=== PATIENT | female | born 1940 | race Caucasian/White ===

== ENCOUNTER 2016-03-04 08:51 | Inpatient (IN) | payer MEDICARE ==
[2016-03-04] VITALS (35 sets, daily range): BP systolic 103–164; BP diastolic 42–93; PULSE 57–85; RESP 13–32; TEMP 99.1; Ht 157.5 cm; Wt 52.3 kg
[~2016-03-04] VITALS: Ht 157.5 cm; Wt 52.3 kg
[~2016-03-04 08:51] MED LIST: ALPR0.5T6 PO; AMLO-145 PO; ASPI81TA3 PO; CARAS PO; FLUTICASONE; LEVO50TA83 PO; MONT10TA24 PO; MULT1TAB59; NEBI5TAB9; PANT40TA3; PREDNISONE 5 MG; RTATR; RTPRO5; SALMETEROL; SMV40T PO; TIOT18CA; [UNRECOGNIZED DRUG - CODE] PO
[2016-03-04] MEDS ORDERED: ACETAMINOPHEN 500 MG TAB PO STA (08:56)
[2016-03-04] MEDS ORDERED: ONDANSETRON 4 MG INJ IV STA (08:56)
[2016-03-04] MEDS ORDERED: CEFEPIME 2GM/50 ML (PMX) 50 ML IVPB STA (08:56)
[2016-03-04] MEDS ORDERED: CA GLUCONATE (GM) 10% 10ML INJ IV STA (08:59)
[2016-03-04] MEDS ORDERED: VANCOMYCIN 1 GM (PMX) 250 ML IVPB ONE (09:00)
[2016-03-04] MEDS ORDERED: IPRATROPIUM (NEB) 0.5 MG/2.5 ML AMP NEB STA (09:06)
[2016-03-04] MEDS ORDERED: ALBUTEROL 0.083% (NEB) 2.5 MG/3 ML AMP NEB STA (09:06)
[2016-03-04] MEDS ORDERED: NITROGLYCERIN 50 MG/D5W (PMX) 250 ML IV STA (09:11)
--- NOTE | 2016-03-04 09:12 | RADRPT ---
PROCEDURE: XR Chest. CLINICAL INDICATION: Cough. Sepsis. TECHNIQUE: Single frontal view. COMPARISON: 08/06/2012. FINDINGS: There is a new tunneled right internal jugular vein dialysis catheter with the tip in the lower supe rior vena cava. There is bilateral air space and interstitial disease consistent with pulmonary tito ma. Superimposed pneumonia cannot be excluded in the mid and lower lung zones. The heart is mildly enlarged. There are sternal wires and mediastinal clips. There is no pleural effusion. There is no pneumothorax. IMPRESSION: 1. Right IJ dialysis catheter in satisfactory position. 2. Pulmonary edema. Superimposed pneumonia cannot be excluded in the mid and lower lung zones. 3. Previous median sternotomy. 4. Cardiomegaly and atherosclerosis. RPTAT: QQ .Daniel Lagunas MD, Date Time Electronically viewed and signed by .Daniel Lagunas MD, MD on 03/04/2016 09:12 .R/
[2016-03-04 09:22] LABS: BASOPHIL # 0.1 10^3/ul (0.0-0.1); BASOPHILS % 0.7 % (0.0-2.0); EOSINOPHILS # 0.3 10^3/ul (0.0-0.5); EOSINOPHILS % 1.7 % (0.0-7.0); HEMOGLOBIN 11.9 g/dl (12.0-16.0); LYMPHOCYTES # 1.4 10^3/ul (0.8-2.9); LYMPHOCYTES % 8.2 % (15.0-51.0); MEAN CORPUSCULAR HGB CONC 33.1 g/dl (32.0-37.0); MEAN CORPUSCULAR VOLUME 102.6 fl (82.0-101.0); MEAN PLATELET VOLUME 8.2 fl (7.4-10.4); MONOCYTE # 0.7 10^3/ul (0.3-0.9); MONOCYTES % 4.3 % (0.0-11.0); NEUTROPHIL # 14.2 10^3/ul (1.6-7.5); NEUTROPHILS % 85.1 % (39.0-77.0); PLATELET COUNT 267 10^3/UL (140-440); RED BLOOD COUNT 3.51 10^6/ul (4.20-5.40); RED CELL DISTRIBUTION WIDTH 15.2 % (11.5-14.5); UNCORRECTED WBC 16.7 10^3/ul (4.8-10.8); WHITE BLOOD COUNT 16.7 10^3/ul (4.8-10.8)
[2016-03-04 09:23] LABS: CONDITION 1; LH ANALYZER COMMENTS 1
[2016-03-04 09:26] LABS: INR 0.97; PROTIME 12.9 Sec (12.2-14.2)
[2016-03-04 09:27] LABS: PARTIAL THROMBOPLASTIN TIME 21.2 Sec (25.0-35.0)
[2016-03-04 09:28] LABS: ALBUMIN 3.5 g/dl (3.3-4.9)
[2016-03-04 09:29] LABS: POTASSIUM 5.3 mmol/L (3.5-5.1)
[2016-03-04 09:31] LABS: ALBUMIN/GLOBULIN RATIO 1.16; BILIRUBIN,INDIRECT 0.1 mg/dl (0-1.1); BILIRUBIN,TOTAL 0.1 mg/dl (0.2-1.3); CREATININE 2.28 mg/dl (0.44-1.00); TOTAL PROTEIN 6.5 g/dl (6.1-8.1)
[2016-03-04 09:32] LABS: CALCIUM 8.7 mg/dl (8.4-10.2)
[2016-03-04 09:56] LABS: TROPONIN-I 2.74 ng/ml (0.00-0.12)
[2016-03-04 10:36] LABS: AADO2 Arterial 175.1 mmHg (7.0-24.0); Allen Test ACCEPTAB; Arterial Base Excess 0.2 mmol/L (-3.0-3); Arterial COHb 0.3 % (0.0-3.0); Arterial Fraction of Oxyhgb 86.8 % (93.0-99.0); Arterial MetHb 0.1 % (0.0-1.5); Arterial Total Hemglobin 11.6 g/dl (12.0-18.0); Blood Gas IEPAP 15/5; Blood Gas PS 10; MODE MASK - BIPAP
[2016-03-04] MEDS ORDERED: HEPARIN 1000 UNITS/ML 10 ML INJ IV STA (10:41)
[2016-03-04] MEDS ORDERED: HEPARIN 25000 UNITS/250 ML 250 ML IV STA (10:41)
[2016-03-04] MEDS ORDERED: ASPIRIN 81 MG TAB PO ONE (11:00)
--- NOTE | 2016-03-04 11:03 | ERA ---
ER Documentation Chief Complaint Date/Time DATE: 03/04/16 TIME: 10:51 Chief Complaint BIBA R89, SUDDEN ONSET SOB PER SON FROM HOME HPI 75-year-old female history of end-stage renal disease on dialysis, last dialysis , history of CABG. The patient presents in respiratory distress. The patient had significant shortness of breath over the past 12-24 hours. She denies chest pain. She states that she feels like she cannot take a deep breath in. She denies any pleuritic pain. She did have recent hospitalization for pneumonia and was noted to have a fever. The patient's blood pressure in the field was near 200 systolic. The patient arrives in respiratory distress and remainder of HPI is limited given critical nature of the patient. ROS All systems reviewed and are negative except as per history of present illness. Medications Home Meds Reported Medications Tiotropium Cheshire* (Spiriva*) 18 Mcg Cap.w.dev 07/26/12 Theophylline Anhydrous* (Kash-24*) 100 Mg Cap.sr.24h, 1 MG PO BID 07/26/12 Sucralfate* (Carafate* (Pediatric)) 100 Mg/Ml Susp, 10 ML PO Q12H 07/26/12 Simvastatin (Simvastatin) 40 Mg Tablet, 1 MG PO HS 07/26/12 [Prednisone 5 Mg Taper Dose] No Conflict Check 07/26/12 Pantoprazole* (Protonix*) 40 Mg Tablet.dr, 1 DAILY 07/26/12 Nebivolol* (Bystolic*) 5 Mg Tab, 1 DAILY 07/26/12 Multivitamins* (Multivitamins*) 1 Tab Tablet, 1 DAILY 07/26/12 Montelukast Sodium* (Montelukast Sodium*) 10 Mg Tablet, 1 MG PO HS 07/26/12 Levothyroxine Sodium* (Synthroid*) 50 Mcg Tablet, 1 MG PO DAILY 07/26/12 Ipratropium Cheshire* (Atrovent*) 2.5 Ml Nebu 07/26/12 [Advair Discus 250 Mcg/50 Mcg] No Conflict Check 07/26/12 Aspirin* (Aspirin* Chew) 81 Mg Tab.chew, 1 MG PO DAILY 07/26/12 Amlodipine Besylate* (Amlodipine Besylate*) 5 Mg Tablet, 0.5 MG PO DAILY 07/26/12 Albuterol Sulfate* (Proventil* Neb) 0.5 Ml Nebu 07/26/12 Alprazolam* (Alprazolam*) 0.5 Mg Tablet, 1 PO PRN 07/26/12 Allergies Allergies: Coded Allergies: iodine (Verified Allergy, 07/31/12) zolpidem tartrate (Verified Allergy, 07/31/12) PMhx/Soc History of Surgery: Yes (CABG, endoscopy) Anesthesia Reaction: No Hx Neurological Disorder: No Hx Respiratory Disorders: Yes (COPD, 02 @ NEEDED) Hx Cardiac Disorders: No (CAD, DM, HTN) Hx Psychiatric Problems: No Hx Miscellaneous Medical Probl: Yes (GI bleed, hypothyroidism, DIALYSIS T/THUR/ SAT) Hx Alcohol Use: No Hx Substance Use: No Hx Tobacco Use: No Smoking Status: Former smoker FmHx Family History: No diabetes Physical Exam Vitals Vital Signs Date Time Temp Pulse Resp B/P Pulse Ox O2 Delivery O2 Flow Rate FiO2 03/04/16 10:40 75 97 50 03/04/16 10:16 84 24 136/45 98 BIPAP 03/04/16 10:11 86 22 134/47 100 BIPAP 03/04/16 09:39 90 21 158/56 100 BIPAP 03/04/16 09:31 102.7 92 24 171/62 100 BIPAP 03/04/16 09:05 106 99 40 03/04/16 09:02 102.7 107 33 161/109 88 Physical Exam General: Respiratory distress speaking in short sentences Head: Normocephalic, atraumatic. Eyes: Pupils equally reactive, EOM intact ENT: Moist mucous membranes Neck: Supple, no lymphadenopathy, JVD Respiratory: Rhonchi at the bases bilaterally Cardiovascular: Tachycardia, no murmurs, rubs, or gallops Abdominal: Soft, non-tender, non-distended, no peritoneal signs : Deferred MSK: Pitting edema, no unilateral swelling, 5/5 strength Neurologic: Alert and oriented, moving all extremities, normal speech, no focal weakness, no cerebellar signs Skin: No rash Psych: Normal mood Result Diagram: 03/04/16 0900 03/04/16 0900 Results 24 hrs Laboratory Tests Test 03/04/16 08:56 03/04/16 09:00 Arterial Blood HCO3 26.0mmol/L Arterial Blood Base Excess 0.2mmol/L Arterial Blood Oxygen Saturation 87.1mmHG Adrien Test ACCEPTAB Arterial Blood Gas Puncture Site Right Radial Arterial Blood Carboxyhemoglobin 0.3% Arterial Blood Date Drawn 03/04/2016 10:25:48 AM Arterial Blood Methemoglobin 0.1% Arterial Blood pCO2 (Temp correct) 46.9mmhg Arterial Blood pH (Temp corrected) 7.362 Arterial Blood pO2 (Temp corrected) 56.2mmHG Blood Gas A-a O2 Differential 175.1mmHg Blood Gas Actual Respiration Rate 30 Blood Gas IPAP/EPAP Ratio 15/5 Blood Gas Modality MASK - BIPAP Blood Gas Notified Time 03/04/2016 10:36:06 AM Blood Gas Notified Whom AT Blood Gas Pressure Support 10 Blood Gas Specimen Source Blood arterial Blood Gas Temperature 37.0C FiO2 40.0% Oxyhemoglobin Percent 86.8% Total Hemoglobin 11.6g/dl Activated Partial Thromboplast Time 21.2Sec Alanine Aminotransferase (ALT/SGPT) 64IU/L Albumin 3.5g/dl Albumin/Globulin Ratio 1.16 Alkaline Phosphatase 104IU/L Anion Gap 14 Aspartate Amino Transf (AST/SGOT) 60IU/L Basophils # 0.110^3/ul Basophils % 0.7% Blood Morphology Comment Blood Urea Nitrogen 65mg/dl Calcium Level 8.7mg/dl Carbon Dioxide Level 29mmol/L Chloride Level 102mmol/L Creatinine 2.28mg/dl Direct Bilirubin 0.00mg/dl Eosinophils # 0.310^3/ul Eosinophils % 1.7% Globulin 3.00g/dl Glucose Level 101mg/dl Hematocrit 36.0% Hemoglobin 11.9g/dl INR International Normalized Ratio 0.97 Indirect Bilirubin 0.1mg/dl Lactic Acid Level 1.7mmol/L Lymphocytes # 1.410^3/ul Lymphocytes % 8.2% Mean Corpuscular Hemoglobin 34.0pg Mean Corpuscular Hemoglobin Concent 33.1g/dl Mean Corpuscular Volume 102.6fl Mean Platelet Volume 8.2fl Monocytes # 0.710^3/ul Monocytes % 4.3% Neutrophils # 14.210^3/ul Neutrophils % 85.1% Nucleated Red Blood Cells # 0.010^3/ul Nucleated Red Blood Cells % 0.0/100WBC Platelet Count 39465^3/UL Potassium Level 5.3mmol/L Prothrombin Time 12.9Sec Prothrombin Time Ratio 1.0 Red Blood Count 3.5110^6/ul Red Cell Distribution Width 15.2% Sodium Level 140mmol/L Total Bilirubin 0.1mg/dl Total Protein 6.5g/dl Troponin I 2.740ng/ml White Blood Count 16.710^3/ul Current Medications Medications (Trade) Dose Ordered Sig/Arnold Route PRN Reason Start Time Stop Time Status Last Admin Dose Admin Cefepime HCl 50 ml @ 100 mls/hr ONCE STAT IVPB 03/04/16 08:56 03/04/16 09:25 DC 03/04/16 09:13 Vancomycin HCl (Vancocin) 250 ml @ 125 mls/hr ONCE ONCE IVPB 03/04/16 09:00 03/04/16 10:59 03/04/16 10:36 Acetaminophen (Tylenol Tab) 1,000 mg ONCE STAT PO 03/04/16 08:56 03/04/16 09:00 DC 03/04/16 09:33 Ondansetron HCl (Zofran Inj) 4 mg ONCE STAT IV 03/04/16 08:56 03/04/16 09:00 DC 03/04/16 09:13 Calcium Gluconate (Ca Gluc) 1 gm ONCE STAT IV 03/04/16 08:59 03/04/16 09:00 DC 03/04/16 09:12 Albuterol (Proventil 0.083% (Neb)) 2.5 mg ONCE STAT NEB 03/04/16 09:06 03/04/16 09:08 DC 03/04/16 09:47 Ipratropium Cheshire 0.5 mg 0.5 mg ONCE STAT NEB 03/04/16 09:06 03/04/16 09:08 DC 03/04/16 09:47 Nitroglycerin/ Dextrose (Nitroglycerin 50 Mg/D5W (Pmx)) 250 ml @ 6 mls/hr ONCE STAT IV 03/04/16 09:11 03/06/16 02:50 03/04/16 09:39 Heparin Sodium (Porcine) 3180 unit 3,180 unit ONCE STAT IV 03/04/16 10:41 03/04/16 10:45 DC Heparin Sodium (Porcine) (Heparin 48985 Units/250 ml) 250 ml @ 0 mls/hr ONCE STAT IV 03/04/16 10:41 03/04/16 10:45 DC Procedures/MDM EKG, MONITORS, & DIAGNOSTIC IMAGING: EKG #1: EKG: I reviewed and interpreted a 12-lead EKG. Rhythm: Sinus tachycardia Ectopy: None Intervals: Left bundle branch block ST segments: No elevations or depressions T waves: Peaked T waves EKG #2: EKG: I reviewed and interpreted a 12-lead EKG. Rhythm: Normal sinus rhythm Ectopy: None Intervals: Left bundle branch block ST segments: ST depression in lateral lead V6 T waves: Improved T waves Chest x-ray: I reviewed and interpreted a 1 view of the chest Mediastinum: No enlargement Cardiac silhouette: cardiomegaly Airspace: Pulmonary edema, cannot rule out left lower lobe infiltrate Bones: No evidence of fracture LAB INTERPRETATION: Troponin elevation, leukocytosis, normal lactic acid, slight hyperkalemia MEDICAL DECISION MAKING: The patient arrives in respiratory distress requiring prompt medical intervention and positive pressure ventilation. The patient has multiple issues at this time. She has a fever with recent pneumonia, she has significant hypertension, dialysis 2 days ago with likely pulmonary edema. The patient's complex presentation is likely concomitant healthcare associated pneumonia with hypertensive emergency in the setting of acute pulmonary edema requiring BiPAP and nitroglycerin drip. The patient is also found to have a troponin elevation. None of her EKGs mean ST elevation myocardial infarction criteria however the patient's EKGs are concerning for possible concurrent ischemia. EKGs do improved with blood pressure and respiratory rate control. She has been noted to have a left bundle branch block in the past. She has not reported any chest pain. However, the patient's troponin is significantly elevated. ER COURSE: The patient does meet SIRS criteria with source consistent with sepsis. While the patient's creatinine is elevated this is consistent with chronic renal failure and not consistent with significant endorgan dysfunction. Therefore, I do not believe that the patient meets criteria for severe sepsis or septic shock. The patient was given antipyretic. Blood cultures were taken prior to antibiotics and the patient was given vancomycin and cefepime. I would like to avoid fluid resuscitation in this patient given extreme concern for volume overload. The patient is clinical evidence of significant volume overload requiring BiPAP and likely emergent dialysis. Providing patient with aggressive fluid resuscitation will certainly place this patient into respiratory failure requiring intubation and unmanageable volume overload. The patient also has evidence of significant hypertension, acute pulmonary edema. The patient was emergently placed on BiPAP with improved symptoms. She was given a breathing treatment given history of COPD but no evidence of significant wheezing. A nitroglycerin drip was initiated with improved blood pressure control and symptom control. The patient's troponin is elevated consistent with non-ST elevation myocardial infarction. Her EKGs do not meet STEMI criteria. However, I discussed the case with Dr. Woods, interventional cardiology. He is concerned about the patient's significant troponin elevation and would like the patient started on heparin, aspirin and he will likely take the patient for angiography later today. Additionally, the patient did have an EKG concerning for hyperkalemia and was empirically given calcium. Her EKG is improved and her potassium is only slightly elevated upon laboratory analysis. The patient however will require emergent dialysis. Dr. Hameed was notified and will arrange for emergent dialysis. The patient's primary care physician Dr. Philip was notified he would like the patient admitted to Dr. Hameed or the hospitalist group. Dr. Hameed would like the patient admitted to the hospitalist group. The patient's blood pressure remained stable. She does not require central line or pressors. Vital sign improvement with interventions as documented above. I kept the patient and/or family informed of laboratory and diagnostic imaging results throughout the emergency room course. DISPOSITION PLAN: ICU CONSULTATION: Accepting care team and consultations: I discussed the current laboratory data, diagnostic imaging and emergency care provided. Admitting team: Dr. Vanegas Admitting team indication: Insurance directed Consulting services: Primary care physician, interventional cardiology and nephrology as documented above Sepsis Documentation: It should be noted while the patient does have Sirs and a source I feel that the patient's endorgan dysfunction criteria is likely secondary to alternative diagnosis namely hypertensive emergency in the setting of end-stage renal disease on dialysis. The patient is hemodynamically stable without significant lactic acid elevation. However, I am required to document patient's reevaluation. The patient did not receive fluids as documented above. SEVERE SEPSIS CRITERIA: Infectious source: Healthcare associated pneumonia End organ damage indicated by: Acute Resp Failure (sat < 92% w/o oxygen) [employer] Appliance [employer]ic > 2.0 SEPSIS MANAGEMENT Time of recognition of severe sepsis/septic shock: Upon arrival 3 HOUR BUNDLE Blood cultures x 2 before broad-spectrum antibiotics: Yes 30 ml/kg NS bolus not given secondary to contraindications as documented above Initial lactate less than 2 Repeat lactate pending SEPTIC SHOCK ASSESSMENT: No lactic acid > 4.0 No persistent hypotension (SBP < 90 or 40 mmHg drop, MAP < 65) despite 30 mL/kg IV fluid bolus VOLUME REASSESSMENT FOR SEPTIC SHOCK: Reevaluation Time: 11 AM Temp 99, BP 136/45, HR 84, RR 24, Pox 98 on BiPAP Heart Regular rate & rhythm Lungs rhonchi at the bases bilaterally Skin Warm & dry Cap Refill Less than 2 seconds Peripheral pulses Radially present PERSISTENT HYPOTENSION TREATMENT: Comfort care No Central line Not Required Vasopressor started Not required I considered further perfusion assessment with CVP measurement, SCVO2, bedside ultrasound volume assessment, passive leg raise, trial of further fluid bolus. And proceeded with 30 ml/kg fluid bolus of NSS, broad spectrum antbiotics, and admission. CRITICAL CARE Critical care time 50 minutes Emergent fluid management while maintaining close respiratory support. Provision of immediate and broad-spectrum antibiotic therapy. Simultaneous assessment for possible sources in order to direct targeted therapy. Consideration for invasive and chemical support to prevent cardiopulmonary collapse. Critical care time is independent of procedures performed. Departure Diagnosis: Primary Impression: Acute respiratory failure Qualified Code: J96.01 - Acute respiratory failure with hypoxia Additional Impressions: Hypertensive emergency Sepsis Qualified Code: A41.9 - Sepsis, due to unspecified organism Healthcare-associated pneumonia Non-ST elevation myocardial infarction (NSTEMI) End stage renal disease on dialysis Hyperkalemia Acute pulmonary edema Leukocytosis Qualified Code: D72.829 - Leukocytosis, unspecified type Condition: Critical KOBY CRUZ MD Mar 04, 2016 11:02
[2016-03-04] MEDS ORDERED: HYDR-3672 PO (11:14)
[2016-03-04] MEDS ORDERED: ISOS20TA19 PO (11:15)
[2016-03-04] MEDS ORDERED: PRED20TA PO (11:16)
[2016-03-04] MEDS ORDERED: FURO20TA3 PO (11:17)
[2016-03-04] MEDS ORDERED: ASPI-664 PO (11:18)
[2016-03-04] MEDS ORDERED: PANT40TA4 PO (11:19)
[2016-03-04] MEDS ORDERED: FLOV220 INHALATION (11:19)
[2016-03-04] MEDS ORDERED: CARV3.1260 PO (11:20)
[2016-03-04] MEDS ORDERED: ATOR40TA68 PO (11:21)
[2016-03-04] MEDS ORDERED: MONT10TA24 PO (11:22)
[2016-03-04] MEDS ORDERED: TIOT4MIS2 INHALATION (11:25)
[2016-03-04 11:27] LABS: ADD UMIC YES; URINE BILIRUBIN (Dip) NEGATIVE (NEGATIVE); URINE BLOOD (Dip) 3+ (NEGATIVE); URINE COLOR YELLOW (YELLOW); URINE GLUCOSE (Dip) NEGATIVE (NEGATIVE); URINE KETONES (Dip) NEGATIVE (NEGATIVE); URINE LEUKOCYTE ESTERASE (Dip) 2+ (NEGATIVE); URINE NITRITE (Dip) NEGATIVE (NEGATIVE); URINE TOTAL PROTEIN (Dip) 2+ (NEGATIVE); URINE UROBILINOGEN (Dip) 0.2 E.U./dL (0.1-1.0)
[2016-03-04] MEDS ORDERED: IPRATROPIUM (NEB) 0.5 MG/2.5 ML AMP NEB PRN (11:30)
[2016-03-04] MEDS ORDERED: ACETAMINOPHEN 650 MG SUPP PR PRN (11:30)
[2016-03-04] MEDS ORDERED: morphine 2 MG INJ IV PRN (11:30)
[2016-03-04] MEDS ORDERED: LORAZEPAM 2 MG INJ IV PRN (11:30)
[2016-03-04] MEDS ORDERED: NITROGLYCERIN (SL) 0.4 MG TAB SL PRN (11:30)
[2016-03-04] MEDS ORDERED: ALBUTEROL 0.5% (NEB) 2.5 MG/0.5 ML AMP NEB PRN (11:30)
[2016-03-04] MEDS ORDERED: ONDANSETRON 4 MG INJ IV PRN (11:30)
[2016-03-04] MEDS ORDERED: HEPARIN 1000 UNITS/ML 10 ML INJ IV PRN (11:30)
[2016-03-04] MEDS ORDERED: LIDOCAINE 1% (MDV) 20 ML INJ ONE (11:37)
[2016-03-04] MEDS ORDERED: VERAPAMIL 5 MG INJ ONE (11:37)
[2016-03-04] MEDS ORDERED: IODIXANOL LOCM 100 ML BTL ONE (11:37)
[2016-03-04] MEDS ORDERED: HEPARIN 1000 UNITS/ML 10 ML INJ ONE (11:37)
[2016-03-04] MEDS ORDERED: NITROGLYCERIN (IC) 100 MCG/ML INJ ONE (11:38)
[2016-03-04 11:39] LABS: BACTERIA,URINE MODERATE; TRANSITIONAL EPI CELLS,URINE FEW
[2016-03-04] MEDS ORDERED: LEVOFLOXACIN 500MG/D5W (PMX) 100 ML IVPB ONE ×2 (12:00→18:00)
[2016-03-04] MEDS ORDERED: DIPHENHYDRAMINE 50 MG INJ ONE (12:11)
[2016-03-04] MEDS ORDERED: METHYLPREDNISOLONE 125 MG INJ ONE (12:11)
[2016-03-04] MEDS ORDERED: HYDROCORTISONE 100 MG INJ ONE (12:11)
[2016-03-04] MEDS ORDERED: FAMOTIDINE 20 MG INJ IV STA (12:16)
[2016-03-04] MEDS ORDERED: FENTAnyl 50 MCG/ML VIAL ONE (12:31)
[2016-03-04] MEDS ORDERED: MIDAZOLAM 1 MG/ML 2 ML INJ ONE (12:31)
[2016-03-04] MEDS ORDERED: CLOPIDOGREL 300 MG TAB ONE (13:27)
--- NOTE | 2016-03-04 14:04 | CONS ---
Date/Time of Note Date/Time of Note DATE: 03/04/16 TIME: 13:57 Assessment/Plan Assessment/Plan Problems: (1) Acute respiratory failure Status: Acute Qualifiers: Qualified Code: J96.01 - Acute respiratory failure with hypoxia (2) Hyperkalemia Status: Acute (3) Leukocytosis Status: Acute Qualifiers: Qualified Code: D72.829 - Leukocytosis, unspecified type (4) Acute pulmonary edema Status: Acute (5) Sepsis Status: Acute Qualifiers: Qualified Code: A41.9 - Sepsis, due to unspecified organism (6) Non-ST elevation myocardial infarction (NSTEMI) Status: Acute (7) Healthcare-associated pneumonia Status: Acute (8) End stage renal disease on dialysis Status: Acute (9) Hypertensive emergency Status: Acute Additional Assessment/Plan Non-ST elevation myocardial infarction ESRD on hemodialysis Severe coronary artery disease status post bypass Severe peripheral vascular disease status post bypass Patient with elevated troponin with EKG changes high risk non-ST elevation myocardial infarction was 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 Patient found to have only GARCIA to LAD open there was no other graft found E1 in the aortogram. Patient had left him and 70-80% significant stenosis confirmed with intravascular ultrasound showed severe calcified stenosis with a left main area of 2.3-2.5 mm in diameter with severely dampening of the pressure while engaging a 6 Bulgarian catheter to the ostial left main. Due to the fact that she had severe ostial left main stenosis confirmed with a high was at high risk non- ST elevation OH with severely reviewed ejection fraction of LV function and LV gram 25% it was a high risk candidate to do left main intervention. We decided to go head due to the segments of the patient as well as pulmonary edema on a BiPAP. Successful complex left main intervention was performed with stent placement of 3.512 mm drug-eluting. Continue heparin drip for next 6 hours and Plavix 600 was given to the patient which will be in the system within 4-6 hours. Patient left groin was closed with Angio-Seal without any complication. I had a long discussion with the patient's family due to the fact that patient' s ejection fraction is severely reduced with critical left main which was intervened patient will be discharged on [facility] home and 90 day follow-up with ejection fraction does not improve patient will require ICD placement Continue current medical management and follow-up the patient in ICU Consultation Date/Type/Reason Admit Date/Time Date of Consultation: Mar 04, 2016 Type of Consultation: Interventional Cardiology Reason for Consultation NSTEMI, High Risk Hx of Present Illness Patient is 75-year-old female with past medical history of coronary artery disease status post bypass surgery, severe peripheral vascular disease status post aortofemoral bypass, ESRD on hemodialysis, hypertension, dyslipidemia who presented to ER with a complaining of shortness of breath and pulmonary edema found to have elevated troponin with EKG changes was initially meetings Scar[place] criteria on left bundle-branch block but patient was at that time tachycardic source STEMI was not called but H and was high risk non-ST elevation myocardial infarction with some EKG changes and troponin of 2.5 with significant coronary artery disease risk and history with the patient to urgently to cardiac [employer] Member Constitutional: no complaints Eyes: no complaints Past Medical History Medical History: congestive heart failure, coronary artery disease, diabetes, hypertension Social History Smoking Status: Former smoker Exam/Review of Systems Vital Signs Vitals Vital Signs Date Time Temp Pulse Resp B/P Pulse Ox O2 Delivery O2 Flow Rate FiO2 03/04/16 11:50 68 21 140/52 100 BIPAP 03/04/16 11:01 99.1 03/04/16 10:40 50 Exam Constitutional: alert, oriented Psych: no complaints Head: normocephalic Eyes: nl conjunctiva ENMT: nl external ears & nose Neck: non-tender, supple Respiratory: clear to auscultation Cardiovascular: regular rate and rhythm Gastrointestinal: soft Results Result Diagram: 03/04/16 0900 03/04/16 0900 Results 24 hrs Laboratory Tests Test 03/04/16 08:56 03/04/16 09:00 03/04/16 10:52 03/04/16 11:09 Arterial Blood HCO3 26.0 Arterial Blood Base Excess 0.2 Arterial Blood Oxygen Saturation 87.1 L Adrien Test ACCEPTAB Arterial Blood Gas Puncture Site Right Radial Arterial Blood Carboxyhemoglobin 0.3 Arterial Blood Date Drawn 03/04/2016 10:25:48 AM Arterial Blood Methemoglobin 0.1 Arterial Blood pCO2 (Temp correct) 46.9 H Arterial Blood pH (Temp corrected) 7.362 Arterial Blood pO2 (Temp corrected) 56.2 L Blood Gas A-a O2 Differential 175.1 H Blood Gas Actual Respiration Rate 30 Blood Gas IPAP/EPAP Ratio 15/5 Blood Gas Modality MASK - BIPAP Blood Gas Notified Time 03/04/2016 10:36:06 AM Blood Gas Notified Whom AT Blood Gas Pressure Support 10 Blood Gas Specimen Source Blood arterial Blood Gas Temperature 37.0 FiO2 40.0 Oxyhemoglobin Percent 86.8 L Total Hemoglobin 11.6 L Activated Partial Thromboplast Time 21.2 L Alanine Aminotransferase (ALT/SGPT) 64 Albumin 3.5 Albumin/Globulin Ratio 1.16 Alkaline Phosphatase 104 Anion Gap 14 Aspartate Amino Transf (AST/SGOT) 60 H Basophils # 0.1 Basophils % 0.7 Blood Morphology Comment Blood Urea Nitrogen 65 H Calcium Level 8.7 Carbon Dioxide Level 29 Chloride Level 102 Creatinine 2.28 H Direct Bilirubin 0.00 Eosinophils # 0.3 Eosinophils % 1.7 Globulin 3.00 Glucose Level 101 Hematocrit 36.0 L Hemoglobin 11.9 L INR International Normalized Ratio 0.97 Indirect Bilirubin 0.1 Lactic Acid Level 1.7 1.5 Lymphocytes # 1.4 Lymphocytes % 8.2 L Mean Corpuscular Hemoglobin 34.0 H Mean Corpuscular Hemoglobin Concent 33.1 Mean Corpuscular Volume 102.6 H Mean Platelet Volume 8.2 Monocytes # 0.7 Monocytes % 4.3 Neutrophils # 14.2 H Neutrophils % 85.1 H Nucleated Red Blood Cells # 0.0 Nucleated Red Blood Cells % 0.0 Platelet Count 267 Potassium Level 5.3 H Prothrombin Time 12.9 Prothrombin Time Ratio 1.0 Red Blood Count 3.51 L Red Cell Distribution Width 15.2 H Sodium Level 140 Total Bilirubin 0.1 L Total Protein 6.5 Troponin I 2.740 *H White Blood Count 16.7 H Urine Bacteria MODERATE Urine Bilirubin NEGATIVE Urine Clarity TURBID Urine Color YELLOW Urine Epithelial Cells FEW Urine Glucose NEGATIVE Urine Hemoglobin 3+ H Urine Ketones NEGATIVE Urine Leukocyte Esterase 2+ H Urine Microscopic RBC 5-10 Urine Microscopic WBC >200 Urine Nitrite NEGATIVE Urine Specific Barry 1.020 Urine Total Protein 2+ H Urine Transitional Epithelial Cells FEW Urine Urobilinogen 0.2 E.U./dL Urine pH 6.0 Medications Medications Current Medications Ondansetron HCl (Zofran Inj) 4 mg Q6H PRN IV NAUSEA AND/OR VOMITING; Start 03/04 at 11:30 Nitroglycerin (Nitroglycerin (Sl Tab) 0.4 Mg) 1 tab Q5M PRN SL CHEST PAIN; Start 03/04/16 at 11:30 Acetaminophen (Tylenol Supp) 650 mg Q4H PRN WI PAIN LEVEL 1-3 OR FEVER; Start 03/04/16 at 11:30 Morphine Sulfate (morphine) 2 mg Q4H PRN IV PAIN LEVEL 7-10; Start 03/04/16 at 11:30 Lorazepam (Ativan) 1 mg Q2H PRN IV ANXIETY; Start 03/04/16 at 11:30 Pantoprazole (Protonix Iv) 40 mg DAILY@06 IV ; Start 03/05/16 at 06:00 Mometasone Furoate 1 puff 1 puff BID INH ; Start 03/04/16 at 21:00 Levofloxacin/ Dextrose 50 ml @ 50 mls/hr Q48H IVPB ; Start 03/06/16 at 12:00 Heparin Sodium (Porcine) (Heparin 85644 Units/250 ml) 250 ml @ 0 mls/hr Q24H IV ; Start 03/04/16 at 12:30 ARTURO REINOSO MD Mar 04, 2016 14:03
[2016-03-04] MEDS: HEPARIN 25000 UNITS/D5W 250 ML IV SCH (14:30)
[2016-03-04] MEDS ORDERED: HEPARIN 1000 UNITS/ML 10 ML INJ HE ONE (15:30)
[2016-03-04 17:09] LABS: CK-MB 52.2 ng/ml (0.0-2.4)
[2016-03-04 17:13] LABS: TROPONIN-I 20.5 ng/ml (0.00-0.12)
[2016-03-04 18:03] LABS: HEMATOCRIT 39.8 % (37.0-47.0); MEAN CORPUSCULAR HEMOGLOBIN 33.9 pg (29.0-33.0); MEAN CORPUSCULAR HGB CONC 32.7 g/dl (32.0-37.0); MEAN CORPUSCULAR VOLUME 103.7 fl (82.0-101.0); MEAN PLATELET VOLUME 8.5 fl (7.4-10.4); PLATELET COUNT 279 10^3/UL (140-440); RED BLOOD COUNT 3.84 10^6/ul (4.20-5.40); RED CELL DISTRIBUTION WIDTH 15.5 % (11.5-14.5)
[2016-03-04 18:11] LABS: CONDITION 1; LH ANALYZER COMMENTS 1; SUSPECT 1
[2016-03-04 19:16] LABS: LYMPHOCYTES # 0.8 10^3/ul (0.8-2.9); MONOCYTE # 0.8 10^3/ul (0.3-0.9); MYELOCYTES # 0.3; NEUTROPHIL # 23.2 10^3/ul (1.6-7.5)
[2016-03-04] MEDS: ALBUTEROL 0.5% (NEB) 2.5 MG/0.5 ML AMP NEB SCH (20:33)
[2016-03-04] MEDS: IPRATROPIUM (NEB) 0.5 MG/2.5 ML AMP NEB SCH (20:33)
[2016-03-04] MEDS: MOMETASONE 0.24 GM INHALER INH SCH (20:57)
[2016-03-04] MEDS: ATORVASTATIN 80 MG TAB PO SCH (20:58)
[2016-03-04] MEDS: ISOSORBIDE DINITRATE 10 MG TAB PO SCH (20:59)
[2016-03-04] MEDS: MONTELUKAST 10 MG TAB PO SCH (20:59)
[2016-03-04] MEDS ORDERED: ATORVASTATIN 40 MG TAB PO SCH (21:00)
[2016-03-04 22:53] LABS: TROPONIN-I 10.1 ng/ml (0.00-0.12)
--- NOTE | 2016-03-04 23:19 | HP ---
DATE OF ADMISSION: 03/04/2016 CHIEF COMPLAINT: Shortness of breath. HISTORY OF PRESENT ILLNESS: This is a 75-year-old female with past medical history of essential hyp ertension, CAD with previous CABG, COPD, dyslipidemia, recent healthcare-associated pneumonia, who c phyllis in to [facility] due to reports of shortness of breath. According to the awa ent, she had been having some shortness of breath for 2 weeks' duration. She did report that she wa s previously hospitalized at [facility] and received IV antibiotics for this. She did re port that she was discharged from there on 02/28/2016. When she arrived home, she stated she still had progressive shortness of breath, and as such, she came to [facility] for furth er evaluation. Upon examination, she did have chest x-ray done on 03/04/2016, that did show pulmona ry edema and suspected superimposed pneumonia with mid and lower lung zones. She also had blood wor k drawn. It did show some leukocytosis, and she did also have a fever as high as 102.7 on arrival. Patient also did have a noted elevated troponin marker at 2.7. Manager Parking was consulted and awa ent did undergo PCI with stent placed to complex left main artery. The patient did tolerate procedu re well. Patient initially had some shortness of breath, but she did report that this has improved significantly. We will evaluate her for the aforementioned issues. MEDICAL AND SURGICAL HISTORY 1. Coronary artery disease status post coronary artery bypass graft. 2. End-stage renal disease on dialysis. 3. Hypertension. 4. History of dyslipidemia. 5. History of chronic obstructive pulmonary disease. SOCIAL HISTORY: The patient denies any alcohol consumption or illicit drug use. She does report ryan giorgig a 20-year history of smoking, but she also does report that she quit 20 years ago. ALLERGIES: Severe ALLERGY TO IODINE, as well as AMBIEN. FAMILY HISTORY: Mother noted to have a history of coronary artery disease. REVIEW OF SYSTEMS: A 12-point review of systems obtained and entirely negative except that mentione d in the history of present illness. HOME MEDICATIONS: 1. Spiriva 4 grams 2 puffs daily. 2. Atorvastatin 40 mg p.o. at bedtime. 3. Carvedilol 3.125 mg p.o. daily. 4. Hydralazine 50 mg p.o. daily. 5. Isosorbide dinitrate 10 mg p.o. daily. 6. Aspirin 81 mg p.o. daily. 7. Lasix 20 mg p.o. every day. 8. Flovent HFA 1 puff b.i.d. 9. Singular 10 mg p.o. at bedtime. 10. Protonix 40 mg p.o. daily. 11. Prednisone 20 mg daily. PHYSICAL EXAMINATION VITAL SIGNS: Temperature at 99.1, pulse of 68, respiratory rate is 21, blood pressure is 140/52, an d pulse ox was noted at 100% on 3 liters nasal cannula. GENERAL: This is a 75-year-old female, appears stated age, status post heart catheterization, with no apparent distress noted at this time. EYES: Pupils equal, round and reactive to light. Anicteric sclerae. NECK: Supple. Nontender. No JVD. CARDIOVASCULAR: S1, S2 auscultated, regular rate. PULMONARY: Minimally diminished at lung bases. ABDOMEN: Soft, nontender, nondistended. EXTREMITIES: No pitting edema noted in bilateral lower extremities. SKIN: Warm, dry, intact, with noted dialysis access on right upper chest. NEUROLOGIC: Alert and oriented x3. LABORATORY DATA: WBC 16.7, hemoglobin is 11.9, hematocrit 36, and platelets are 267,000. Sodium 14 0, potassium 5.3, BUN is 65, creatinine is 2.28. Also, troponin I noted at 2.7. IMAGING: Chest x-ray done on 03/04/2016 did show pulmonary edema and superimposed pneumonia cannot be excluded in the mid and lower lung zones, and also previous median sternotomy, as well as cardiom egaly and atherosclerosis. IMPRESSION AND PLAN 1. Non-ST elevated myocardial infarction. The patient is status post percutaneous coronary interve ntion with stent placement. Continue on antiplatelet therapy. Continue on beta-angelica. 2. History of coronary artery disease with coronary artery bypass graft. Patient will be placed on antiplatelet medication. She is currently on heparin per cardiology recommendations. We will fol low up on A1c. 3. Healthcare-acquired pneumonia. We will continue the patient on antibiotics. Will provide with bronchodilators as needed for shortness of breath. 4. Acute respiratory failure secondary to #3. Improved at present. Will put on bronchodilators, t itrate down O2 as tolerated. Control Tower Radio Operator to follow pending clinical course. 5. Sepsis secondary to pneumonia. Appears to be improving at present. We will follow up on CBC. Continue current antibiotics. Will check followup chest radiograph. 6. End-stage renal disease on dialysis. Roll Grinder Operator is following. Continue on dialysis. Monitor for hyperkalemia. 7. Accelerated hypertension. We will continue on antihypertensives and adjust as needed. ADMISSION PROCESS TIME: Was 40 minutes. Discussed plan of care with Dr. Vanegas. Dictated By: SUSANNE DIAZ MEDICAID SERVICE COORDINATOR for BERENICE VANEGAS MD RR/NTS Conf#: [id number] DID#: [id number]
[2016-03-05] VITALS (30 sets, daily range): BP systolic 90–146; BP diastolic 37–106; PULSE 54–74; RESP 13–26
[2016-03-05] MEDS: ALBUTEROL 0.5% (NEB) 2.5 MG/0.5 ML AMP NEB SCH ×5 (01:37→20:26)
[2016-03-05] MEDS: IPRATROPIUM (NEB) 0.5 MG/2.5 ML AMP NEB SCH ×5 (01:37→20:26)
[2016-03-05] MEDS: PANTOPRAZOLE 40 MG INJ IV SCH (05:33)
[2016-03-05] MEDS: FUROSEMIDE 20 MG TAB PO SCH (05:34)
[2016-03-05 07:02] LABS: BASOPHILS % 0.3 % (0.0-2.0); EOSINOPHILS % 0.1 % (0.0-7.0); HEMATOCRIT 29.4 % (37.0-47.0); HEMOGLOBIN 9.9 g/dl (12.0-16.0); LYMPHOCYTES # 1.3 10^3/ul (0.8-2.9); LYMPHOCYTES % 7.9 % (15.0-51.0); MEAN CORPUSCULAR HEMOGLOBIN 34.8 pg (29.0-33.0); MEAN CORPUSCULAR HGB CONC 33.6 g/dl (32.0-37.0); MEAN CORPUSCULAR VOLUME 103.6 fl (82.0-101.0); MEAN PLATELET VOLUME 8.3 fl (7.4-10.4); MONOCYTE # 0.7 10^3/ul (0.3-0.9); MONOCYTES % 3.9 % (0.0-11.0); NEUTROPHIL # 14.7 10^3/ul (1.6-7.5); NEUTROPHILS % 87.8 % (39.0-77.0); PLATELET COUNT 197 10^3/UL (140-440); RED BLOOD COUNT 2.84 10^6/ul (4.20-5.40); RED CELL DISTRIBUTION WIDTH 14.8 % (11.5-14.5); UNCORRECTED WBC 16.8 10^3/ul (4.8-10.8); WHITE BLOOD COUNT 16.8 10^3/ul (4.8-10.8)
[2016-03-05 07:08] LABS: CONDITION 1; LH ANALYZER COMMENTS 1
[2016-03-05 07:12] LABS: ALBUMIN 2.9 g/dl (3.3-4.9); POTASSIUM 5.9 mmol/L (3.5-5.1)
[2016-03-05 07:14] LABS: CREATININE 2.19 mg/dl (0.44-1.00)
[2016-03-05 07:15] LABS: ALBUMIN/GLOBULIN RATIO 1.07; BILIRUBIN,INDIRECT 0.2 mg/dl (0-1.1); BILIRUBIN,TOTAL 0.2 mg/dl (0.2-1.3); CALCIUM 8.8 mg/dl (8.4-10.2); TOTAL PROTEIN 5.6 g/dl (6.1-8.1)
[2016-03-05 07:20] LABS: CHOL/HDL RATIO 2.4 RATIO
--- NOTE | 2016-03-05 07:27 | CONS ---
DATE OF ADMISSION: 03/04/2016 DATE OF CONSULTATION: 03/04/2016 TYPE OF CONSULTATION: Pulmonary. HISTORY OF PRESENT ILLNESS: Briefly, this is a 75-year-old female with a history of coronary artery disease, status post coronary artery bypass graft, peripheral vascular disease status post aortofem oral bypass, end-stage renal disease on dialysis, hypertension, hyperlipidemia, COPD, who presented to the emergency room complaining of shortness of breath, found to have a non-ST segment elevation M I, underwent left heart catheterization with percutaneous coronary intervention by cardiology. Jeffry tionally, on presentation, patient had hypoxemic/chronic hypercapnic respiratory insufficiency requi ring noninvasive positive pressure ventilation via BiPAP. PAST MEDICAL HISTORY: As noted above. MEDICATIONS: Please see MAR. ALLERGIES: NONE. FAMILY HISTORY: Noncontributory. SOCIAL HISTORY: Former smoker. No illicit drug use. No alcohol. REVIEW OF SYSTEMS: As noted in the HPI. PHYSICAL EXAMINATION: VITAL SIGNS: 140/52. Oxygen saturation is 100% on BiPAP 50%, afebrile. HEENT: Normocephalic, atraumatic. NECK: Jugular venous pressures are elevated. CARDIOVASCULAR: Shows there is a regular rate and rhythm, S1, S2 with a II/ systolic murmur. CHEST: Bibasilar crackles and diffusely decreased breath sounds. ABDOMEN: Soft, nontender. EXTREMITIES: No cyanosis, clubbing or edema. LABORATORY DATA: ABG of 7.36, pCO2 of 47, pO2 46 on 40%. Troponin is 2.7. BUN is 65, creatinine i s 2.28. Coags are within normal limits. UA with greater than 200 WBCs. IMPRESSION: 1. Acute hypoxemic respiratory insufficiency and chronic hypercapnic respiratory insufficiency like ly due to pulmonary edema in a patient with underlying background of chronic obstructive pulmonary d isease. The pulmonary edema most likely precipitated by an acute ischemic event. 2. Non-ST elevation myocardial infarction. 3. Chronic kidney disease on hemodialysis. 4. Urosepsis. 5. Hypertensive urgency/emergency. RECOMMENDATIONS: 1. Management as per cardiology. 2. Will wean off BiPAP. 3. Continue with DVT prophylaxis. 4. Renal to follow patient and initiate dialysis. 5. Obtain blood cultures and start antibiotics for underlying UTI. Please send a copy to Dictated By: DALTON MADISON/DUTCH Conf#: [id number] DID#: [id number] CC: BERENICE MELENDEZ MD;*End*
--- NOTE | 2016-03-05 07:58 | CONS ---
Date/Time of Note Date/Time of Note DATE: 03/05/16 TIME: 07:52 Consult Date/Type/Reason Admit Date/Time Mar 04, 2016 at 14:42 Initial Consult Date 03/04/16 Type of Consultation: neph Subjective 75-year-old female with a history of coronary artery disease, status post coronary artery bypass graft, peripheral vascular disease status post aortofemoral bypass, end-stage renal disease on dialysis, hypertension, hyperlipidemia, COPD, who presented to the emergency room complaining of shortness of breath, found to have a non-ST segment elevation IN, underwent left heart catheterization with percutaneous coronary intervention by cardiology. Additionally, on presentation, patient had hypoxemic/chronic hypercapnic respiratory insufficiency requiring noninvasive positive pressure ventilation via BiPAP. Had hd yesterday without complication. POC reviewed with dr. Philip. HEENT: Normocephalic, atraumatic. NECK: Jugular venous pressures are elevated. CARDIOVASCULAR: Shows there is a regular rate and rhythm, S1, S2 with a II/ systolic murmur. CHEST: Bibasilar crackles and diffusely decreased breath sounds. ABDOMEN: Soft, nontender. EXTREMITIES: No cyanosis, clubbing or edema. Objective Vital Signs Date Time Temp Pulse Resp B/P Pulse Ox O2 Delivery O2 Flow Rate FiO2 03/05/16 06:00 60 22 122/49 96 Nasal Cannula 1.0 03/05/16 03:00 97.8 03/04/16 12:05 50 Intake and Output 03/04/16 03/04/16 03/05/16 15:00 23:00 07:00 Intake Total 51.5 ml 690 ml Output Total 2100 ml 250 ml Balance 51.5 ml -1410 ml -250 ml Results/Medications Result Diagram: 03/05/16 0625 03/05/16 0625 Results 24 hrs Laboratory Tests Test 03/04/16 08:56 03/04/16 09:00 03/04/16 10:52 03/04/16 11:09 Arterial Blood HCO3 26.0 Arterial Blood Base Excess 0.2 Arterial Blood Oxygen Saturation 87.1 L Adrien Test ACCEPTAB Arterial Blood Gas Puncture Site Right Radial Arterial Blood Carboxyhemoglobin 0.3 Arterial Blood Date Drawn 03/04/2016 10:25:48 AM Arterial Blood Methemoglobin 0.1 Arterial Blood pCO2 (Temp correct) 46.9 H Arterial Blood pH (Temp corrected) 7.362 Arterial Blood pO2 (Temp corrected) 56.2 L Blood Gas A-a O2 Differential 175.1 H Blood Gas Actual Respiration Rate 30 Blood Gas IPAP/EPAP Ratio 15/5 Blood Gas Modality MASK - BIPAP Blood Gas Notified Time 03/04/2016 10:36:06 AM Blood Gas Notified Whom AT Blood Gas Pressure Support 10 Blood Gas Specimen Source Blood arterial Blood Gas Temperature 37.0 FiO2 40.0 Oxyhemoglobin Percent 86.8 L Total Hemoglobin 11.6 L Activated Partial Thromboplast Time 21.2 L Alanine Aminotransferase (ALT/SGPT) 64 Albumin 3.5 Albumin/Globulin Ratio 1.16 Alkaline Phosphatase 104 Anion Gap 14 Aspartate Amino Transf (AST/SGOT) 60 H Basophils # 0.1 Basophils % 0.7 Blood Morphology Comment Blood Urea Nitrogen 65 H Calcium Level 8.7 Carbon Dioxide Level 29 Chloride Level 102 Creatinine 2.28 H Direct Bilirubin 0.00 Eosinophils # 0.3 Eosinophils % 1.7 Globulin 3.00 Glucose Level 101 Hematocrit 36.0 L Hemoglobin 11.9 L INR International Normalized Ratio 0.97 Indirect Bilirubin 0.1 Lactic Acid Level 1.7 1.5 Lymphocytes # 1.4 Lymphocytes % 8.2 L Mean Corpuscular Hemoglobin 34.0 H Mean Corpuscular Hemoglobin Concent 33.1 Mean Corpuscular Volume 102.6 H Mean Platelet Volume 8.2 Monocytes # 0.7 Monocytes % 4.3 Neutrophils # 14.2 H Neutrophils % 85.1 H Nucleated Red Blood Cells # 0.0 Nucleated Red Blood Cells % 0.0 Platelet Count 267 Potassium Level 5.3 H Prothrombin Time 12.9 Prothrombin Time Ratio 1.0 Red Blood Count 3.51 L Red Cell Distribution Width 15.2 H Sodium Level 140 Total Bilirubin 0.1 L Total Protein 6.5 Troponin I 2.740 *H White Blood Count 16.7 H Urine Bacteria MODERATE Urine Bilirubin NEGATIVE Urine Clarity TURBID Urine Color YELLOW Urine Epithelial Cells FEW Urine Glucose NEGATIVE Urine Hemoglobin 3+ H Urine Ketones NEGATIVE Urine Leukocyte Esterase 2+ H Urine Microscopic RBC 5-10 Urine Microscopic WBC >200 Urine Nitrite NEGATIVE Urine Specific [place] 1.020 Urine Total Protein 2+ H Urine Transitional Epithelial Cells FEW Urine Urobilinogen 0.2 E.U./dL Urine pH 6.0 Test 03/04/16 15:18 03/04/16 16:35 03/04/16 17:10 1/7/17 22:20 Lactic Acid Level 1.0 Creatine Kinase 308 H 212 H Creatine Kinase Index 16.9 20.3 Creatinine Kinase MB (Mass) 52.20 H 43.00 H Troponin I 20.500 *H 10.100 *H Band Neutrophils % 7.0 H Blood Morphology Comment Hematocrit 39.8 Hemoglobin 13.0 Lymphocytes # 0.8 Lymphocytes % 3.0 L Mean Corpuscular Hemoglobin 33.9 H Mean Corpuscular Hemoglobin Concent 32.7 Mean Corpuscular Volume 103.7 H Mean Platelet Volume 8.5 Monocytes # 0.8 Monocytes % 3.0 Myelocytes # 0.3 Myelocytes % 1.0 H Neutrophils # 23.2 H Neutrophils % 86.0 H Platelet Count 279 Red Blood Count 3.84 L Red Cell Distribution Width 15.5 H White Blood Count 27.0 #H Test 03/05/16 06:25 03/05/16 06:26 Alanine Aminotransferase (ALT/SGPT) 48 Albumin 2.9 L Albumin/Globulin Ratio 1.07 Alkaline Phosphatase 79 Anion Gap 17 H Aspartate Amino Transf (AST/SGOT) 78 H Basophils # 0.0 Basophils % 0.3 Blood Morphology Comment Blood Urea Nitrogen 45 #H Calcium Level 8.8 Carbon Dioxide Level 30 Chloride Level 97 Creatinine 2.19 H Direct Bilirubin 0.00 Eosinophils # 0.0 Eosinophils % 0.1 Globulin 2.70 Glucose Level 96 Hematocrit 29.4 #L Hemoglobin 9.9 #L Indirect Bilirubin 0.2 Lymphocytes # 1.3 Lymphocytes % 7.9 L Mean Corpuscular Hemoglobin 34.8 H Mean Corpuscular Hemoglobin Concent 33.6 Mean Corpuscular Volume 103.6 H Mean Platelet Volume 8.3 Monocytes # 0.7 Monocytes % 3.9 Neutrophils # 14.7 H Neutrophils % 87.8 H Nucleated Red Blood Cells # 0.0 Nucleated Red Blood Cells % 0.0 Platelet Count 197 # Potassium Level 5.9 H Red Blood Count 2.84 #L Red Cell Distribution Width 14.8 H Sodium Level 138 Total Bilirubin 0.2 Total Protein 5.6 L White Blood Count 16.8 #H Cholesterol Level 105 Cholesterol/HDL Ratio 2.4 HDL Cholesterol 43 LDL Cholesterol, Calculated 48 Triglycerides Level 70 Medications Current Medications Ondansetron HCl (Zofran Inj) 4 mg Q6H PRN IV NAUSEA AND/OR VOMITING; Start 03/04 at 11:30 Nitroglycerin (Nitroglycerin (Sl Tab) 0.4 Mg) 1 tab Q5M PRN SL CHEST PAIN; Start 03/04/16 at 11:30 Acetaminophen (Tylenol Supp) 650 mg Q4H PRN [place] PAIN LEVEL 1-3 OR FEVER; Start 03/04/16 at 11:30 Morphine Sulfate (morphine) 2 mg Q4H PRN IV PAIN LEVEL 7-10; Start 03/04/16 at 11:30 Lorazepam (Ativan) 1 mg Q2H PRN IV ANXIETY; Start 03/04/16 at 11:30 Pantoprazole (Protonix Iv) 40 mg DAILY@06 IV Last administered on 03/05/16 05: 33; Admin Dose 40 MG; Start 03/05/16 at 06:00 Mometasone Furoate 1 puff 1 puff BID INH Last administered on 03/04/16 20:57; Admin Dose 1 PUFF; Start 03/04/16 at 21:00 Levofloxacin/ Dextrose 50 ml @ 50 mls/hr Q48H IVPB ; Start 03/06/16 at 12:00 Heparin Sodium (Porcine) (Heparin 12492 Units/250 ml) 250 ml @ 0 mls/hr Q24H IV ; Start 03/04/16 at 12:30 Miscellaneous Information (* Miscellaneous Pharmacy Order) Hold all Metformin ... ONCE XX Last administered on 03/04/16 14:00; Admin Dose 1 EA; Start at 14:00; Stop 03/06/16 at 13:59 Aspirin (Halfprin) 81 mg DAILY PO ; Start 03/05/16 at 09:00 Furosemide (Lasix) 20 mg DAILY@06 PO Last administered on 03/05/16 05:34; Admin Dose 20 MG; Start 03/05/16 at 06:00 Montelukast Sodium (Singulair) 10 mg QHS PO Last administered on 03/04/16 20:59 ; Admin Dose 10 MG; Start 03/04/16 at 21:00 Atorvastatin Calcium (Lipitor) 80 mg DAILY@21 PO Last administered on 03/04/16 20:58; Admin Dose 80 MG; Start 03/04/16 at 21:00 Carvedilol (Coreg) 6.25 mg BID PO Last administered on 03/04/16 22:06; Admin Dose 6.25 MG; Start 03/04/16 at 21:00 Hydralazine HCl (Apresoline) 25 mg TID PO Last administered on 03/04/16 20:59; Admin Dose 25 MG; Start 03/04/16 at 21:00 Isosorbide Dinitrate (Isordil) 5 mg TID PO Last administered on 03/04/16 20:59 ; Admin Dose 5 MG; Start 03/04/16 at 21:00 Lisinopril (Zestril) 2.5 mg DAILY PO ; Start 03/05/16 at 09:00 Clopidogrel Bisulfate (plaVIX) 75 mg DAILY PO ; Start 03/05/16 at 09:00 Assessment/Plan Chief Complaint/Hosp Course 1. End rose renal disease on hd. assess daily for hd. all meds dosed ok for renal function. monitor serially.hd again today for hyperkalemia and volume. 2. NSTEMI- sp ntemi. sp pci. med optimize 3. Healthcare-acquired pneumonia. We will continue the patient on antibiotics. Will provide with bronchodilators as needed for shortness of breath. 4. Acute respiratory failure secondary to #3. Improved at present. Will put on bronchodilators, titrate down O2 as tolerated. Hogshead Liner to follow pending clinical course. 5. Sepsis secondary to pneumonia. Appears to be improving at present. We will follow up on CBC. Continue current antibiotics. Will check followup chest radiograph. 6. Anemia of chronic disease. epo with hd. 7. Accelerated hypertension. We will continue on antihypertensives and adjust as needed. Problems: IVANA BINGHAM MD Mar 05, 2016 07:57
[2016-03-05] MEDS ORDERED: ISOSORBIDE DINITRATE 20 MG TAB PO SCH (09:00)
[2016-03-05] MEDS ORDERED: PANTOPRAZOLE (EC) 40 MG TAB PO SCH (09:00)
[2016-03-05] MEDS ORDERED: ISOSORBIDE DINITRATE 10 MG TAB PO SCH (09:00)
[2016-03-05] MEDS ORDERED: NON-FORMULARY/PATIENT OWN MED (Tiotropium Bromide (Spiriva Respimat) 2 PUFF) INHALATION SCH (09:00)
--- NOTE | 2016-03-05 09:00 | RADRPT ---
Vent Rate: 86 bpm RR Interval: 0 msec ME Interval: 134 msec QRS Duration: 124 msec QT Interval: 422 msec QTC Interval: 504 msec P-R-T Kerrick: 88 - -68 - 105 degrees Normal sinus rhythm Left atrial enlargement Left axis deviation Left bundle branch block Abnormal ECG Electronically Signed By: Marquis Vazquez [id number]
[2016-03-05] MEDS: MOMETASONE 0.24 GM INHALER INH SCH ×2 (09:25→21:58)
[2016-03-05] MEDS: ISOSORBIDE DINITRATE 10 MG TAB PO SCH ×3 (09:26→20:48)
[2016-03-05] MEDS: ASPIRIN (EC) 81 MG TAB PO SCH (09:26)
[2016-03-05] MEDS: LISINOPRIL 5 MG TAB PO SCH (09:27)
[2016-03-05] MEDS: CLOPIDOGREL 75 MG TAB PO SCH (09:27)
--- NOTE | 2016-03-05 11:00 | CONS ---
DATE OF ADMISSION: 03/04/2016 DATE OF CONSULTATION: 03/04/2016 HISTORY OF PRESENT ILLNESS: The patient is a 75-year-old female with past medical history of end-st age renal disease, history of coronary artery disease, status post CABG, peripheral vascular disease , status post aortofemoral bypass, hypertension, hyperlipidemia, COPD, who presented to the emergenc y room noting shortness of breath, noted to have fever, possible pneumonia, but also abnormal EKG an d elevated troponin. Patient noted to have congestive heart failure on x-ray and needed BiPAP on pr esentation. Patient has not had any changes to any of her medications. Patient has been followed sarah herrera Dr. recently in the hospital at [facility], discharged at the beginning of . She does have some pleurisy, noted to have hypertension, with a systolic blood pressure in the 2 00s when she presented. PAST MEDICAL HISTORY: As above. MEDICATIONS: Her medications from home include: 1. Spiriva. 2. Theophylline. 3. Carafate. 4. Zocor. 5. Prednisone. 6. Protonix. 7. Bystolic. 8. Multivitamin. 9. Singulair. 10. Synthroid. 11. Atrovent. 12. Advair. 13. Aspirin. 14. Amlodipine. 15. Albuterol. 16. Alprazolam. ALLERGIES: 1. IODINE 2. ZOLPIDEM. SOCIAL HISTORY: Does not smoke, drink, or use drugs. FAMILY HISTORY: History of kidney disease. REVIEW OF SYSTEMS: A 14-point review of systems attempted and negative unless otherwise stated. PHYSICAL EXAMINATION: VITAL SIGNS: We see temperature of 102.7, blood pressure 172/62. HEENT: Head is normocephalic, atraumatic. Pupils equally round, reactive to light. OROPHARYNX: Moist mucous membranes. NECK: Supple. RESPIRATORY: Showed rhonchi at the bases. CARDIOVASCULAR: Tachycardia. No murmurs, rubs, gallops. ABDOMEN: Soft, nontender, nondistended. Normoactive bowel sounds. No rebound, no guarding. EXTREMITIES: No clubbing, cyanosis, or edema. NEUROLOGIC: Alert and oriented. Moving all extremities, 5/5 strength. SKIN: Shows no rashes. BACK: No CVA tenderness. CHEST: With symmetric excursions. PSYCHIATRIC: With normal mood and affect. LABORATORY EVALUATION: Shows white count 16.7, hemoglobin 12, hematocrit 36. Sodium 140, potassium 5.3, BUN 65, creatinine 2.28. UA is reviewed under microscopy. Chest x-ray was reviewed with the radiologist. IMPRESSION: 1. End-stage renal disease, on dialysis, with signs of overt congestive heart failure. Patient alina l be dialyzed urgently. Patient is planning to have angio procedure, and may need to be dialyzed ag ain tomorrow. Assess daily for dialysis needs. All medications are dosed appropriately for renal f unction. Monitor for now. 2. Non-ST elevation myocardial infarction. Planning on angiogram later today per Dr. Woods, then op smooth. 3. Healthcare-associated pneumonia potential on chest x-ray. Continue antibiotics. 4. Sepsis due to pneumonia, likely. Follow up cultures. 6. Chronic obstructive pulmonary disease with exacerbation, already on steroids. We will continue nebulizer treatments. Dictated By: IVANA CHU/DUTCH Conf#: [id number] DID#: [id number]
[2016-03-05] MEDS ORDERED: MONT10TA24 PO (11:08)
[2016-03-05] MEDS ORDERED: ATOR80TA75 PO (11:08)
[2016-03-05] MEDS ORDERED: LISI-313 PO (11:08)
[2016-03-05] MEDS ORDERED: LAS20 PO (11:08)
[2016-03-05] MEDS ORDERED: ASPI-664 PO (11:08)
[2016-03-05] MEDS ORDERED: CARV6.2579 PO (11:08)
[2016-03-05] MEDS ORDERED: CLOP75TA28 PO (11:08)
[2016-03-05] MEDS ORDERED: ISOS10TA2 PO (11:08)
[2016-03-05] MEDS ORDERED: HYDR-3671 PO (11:08)
[2016-03-05] MEDS ORDERED: MOME220A2 INH (11:08)
[2016-03-05] MEDS ORDERED: ACETAMINOPHEN 325 MG TAB PO PRN (11:30)
[2016-03-05] MEDS: ACETAMINOPHEN 325 MG TAB PO PRN ×2 (11:32→21:58)
--- NOTE | 2016-03-05 11:59 | PN ---
Date/Time of Note Date/Time of Note DATE: 03/05/16 TIME: 11:49 Assessment/Plan VTE Prophylaxis VTE Prophylaxis Intervention: SCD's Lines/Catheters IV [facility]from [facility] Urinary Cath still in place: No Assessment/Plan Chief Complaint/Hosp Course Assessment and plan 1. Non-ST elevated myocardial infarction. The patient is status post percutaneous coronary intervention with stent placement. Continue on antiplatelet therapy. Continue on beta-angelica. 2. History of coronary artery disease with coronary artery bypass graft. continue antiplatelet therapy 3. Healthcare-acquired pneumonia. We will continue the patient on antibiotics. Will provide with bronchodilators as needed for shortness of breath. 4. Acute respiratory failure secondary to #3. Improved at present. Will put on bronchodilators, titrate down O2 as tolerated. Off BiPAP at this time. 5. Sepsis secondary to pneumonia. Appears to be improving at present. We will follow up on CBC. Continue current antibiotics. h. 6. End-stage renal disease on dialysis. Electrician Station Assistant is following. Continue on dialysis. Monitor for hyperkalemia. 7. Accelerated hypertension. We will continue on antihypertensives and adjust as needed. Disposition and plan: Does appear to be overall stable. Follow-up with cardiology should further intervention be needed. Transfer to telemetry if cleared by consultants Discussed plan of care with Dr. Cheema Problems: Subjective 24 Hr Interval Summary Free Text/Dictation comfortable at present. no s/s of distress Exam/Review of Systems Vital Signs Vitals Vital Signs Date Time Temp Pulse Resp B/P Pulse Ox O2 Delivery O2 Flow Rate FiO2 03/05/16 08:00 72 03/05/16 06:00 22 122/49 96 Nasal Cannula 1.0 03/05/16 03:00 97.8 03/04/16 12:05 50 Intake and Output 03/04/16 03/04/16 03/05/16 14:59 22:59 06:59 Intake Total 51.5 ml 690 ml Output Total 2100 ml 250 ml Balance 51.5 ml -1410 ml -250 ml Exam General: No acute signs or symptoms of distress Eyes: pupils equal round, Anicteric sclera Neck: Supple nontender, no JVD Cardiac: S1, S2 auscultated, regular rhythm and rate Pulmonary: No coarse rhonchi or breathing auscultated GI: Abdomen soft nontender nondistended, bowel sounds active Extremities: No edema bilateral lower extremities Skin: dialysis access right upper chest Neurologic: Alert to person place and time and situation Results Result Diagram: 03/05/16 0625 03/05/16 0625 Results 24 hrs Laboratory Tests Test 03/04/16 15:18 03/04/16 16:35 03/04/16 17:10 03/04/16 22:20 Lactic Acid Level 1.0 Creatine Kinase 308 H 212 H Creatine Kinase Index 16.9 20.3 Creatinine Kinase MB (Mass) 52.20 H 43.00 H Troponin I 20.500 *H 10.100 *H Band Neutrophils % 7.0 H Blood Morphology Comment Hematocrit 39.8 Hemoglobin 13.0 Lymphocytes # 0.8 Lymphocytes % 3.0 L Mean Corpuscular Hemoglobin 33.9 H Mean Corpuscular Hemoglobin Concent 32.7 Mean Corpuscular Volume 103.7 H Mean Platelet Volume 8.5 Monocytes # 0.8 Monocytes % 3.0 Myelocytes # 0.3 Myelocytes % 1.0 H Neutrophils # 23.2 H Neutrophils % 86.0 H Platelet Count 279 Red Blood Count 3.84 L Red Cell Distribution Width 15.5 H White Blood Count 27.0 #H Test 03/05/16 06:25 03/05/16 06:26 Alanine Aminotransferase (ALT/SGPT) 48 Albumin 2.9 L Albumin/Globulin Ratio 1.07 Alkaline Phosphatase 79 Anion Gap 17 H Aspartate Amino Transf (AST/SGOT) 78 H Basophils # 0.0 Basophils % 0.3 Blood Morphology Comment Blood Urea Nitrogen 45 #H Calcium Level 8.8 Carbon Dioxide Level 30 Chloride Level 97 Creatinine 2.19 H Direct Bilirubin 0.00 Eosinophils # 0.0 Eosinophils % 0.1 Globulin 2.70 Glucose Level 96 Hematocrit 29.4 #L Hemoglobin 9.9 #L Hemoglobin A1c 5.6 Indirect Bilirubin 0.2 Lymphocytes # 1.3 Lymphocytes % 7.9 L Mean Corpuscular Hemoglobin 34.8 H Mean Corpuscular Hemoglobin Concent 33.6 Mean Corpuscular Volume 103.6 H Mean Platelet Volume 8.3 Monocytes # 0.7 Monocytes % 3.9 Neutrophils # 14.7 H Neutrophils % 87.8 H Nucleated Red Blood Cells # 0.0 Nucleated Red Blood Cells % 0.0 Platelet Count 197 # Potassium Level 5.9 H Red Blood Count 2.84 #L Red Cell Distribution Width 14.8 H Sodium Level 138 Total Bilirubin 0.2 Total Protein 5.6 L White Blood Count 16.8 #H Cholesterol Level 105 Cholesterol/HDL Ratio 2.4 HDL Cholesterol 43 LDL Cholesterol, Calculated 48 Triglycerides Level 70 Medications Medications Current Medications Ondansetron HCl (Zofran Inj) 4 mg Q6H PRN IV NAUSEA AND/OR VOMITING; Start 03/04 at 11:30 Nitroglycerin (Nitroglycerin (Sl Tab) 0.4 Mg) 1 tab Q5M PRN SL CHEST PAIN; Start 03/04/16 at 11:30 Acetaminophen (Tylenol Supp) 650 mg Q4H PRN [place] PAIN LEVEL 1-3 OR FEVER; Start 03/04/16 at 11:30 Morphine Sulfate (morphine) 2 mg Q4H PRN IV PAIN LEVEL 7-10; Start 03/04/16 at 11:30 Lorazepam (Ativan) 1 mg Q2H PRN IV ANXIETY; Start 03/04/16 at 11:30 Pantoprazole (Protonix Iv) 40 mg DAILY@06 IV Last administered on 03/05/16 05: 33; Admin Dose 40 MG; Start 03/05/16 at 06:00 Mometasone Furoate 1 puff 1 puff BID INH Last administered on 03/05/16 09:25; Admin Dose 1 PUFF; Start 03/04/16 at 21:00 Levofloxacin/ Dextrose 50 ml @ 50 mls/hr Q48H IVPB ; Start 03/06/16 at 12:00 Heparin Sodium (Porcine) (Heparin 44479 Units/250 ml) 250 ml @ 0 mls/hr Q24H IV ; Start 03/04/16 at 12:30 Miscellaneous Information (* Miscellaneous Pharmacy Order) Hold all Metformin ... ONCE XX Last administered on 03/04/16 14:00; Admin Dose 1 EA; Start at 14:00; Stop 03/06/16 at 13:59 Aspirin (Halfprin) 81 mg DAILY PO Last administered on 03/05/16 09:26; Admin Dose 81 MG; Start 03/05/16 at 09:00 Furosemide (Lasix) 20 mg DAILY@06 PO Last administered on 03/05/16 05:34; Admin Dose 20 MG; Start 03/05/16 at 06:00 Montelukast Sodium (Singulair) 10 mg QHS PO Last administered on 03/04/16 20:59 ; Admin Dose 10 MG; Start 03/04/16 at 21:00 Atorvastatin Calcium (Lipitor) 80 mg DAILY@21 PO Last administered on 03/04/16 20:58; Admin Dose 80 MG; Start 03/04/16 at 21:00 Carvedilol (Coreg) 6.25 mg BID PO Last administered on 03/05/16 09:27; Admin Dose 6.25 MG; Start 03/04/16 at 21:00 Hydralazine HCl (Apresoline) 25 mg TID PO Last administered on 03/05/16 09:26; Admin Dose 25 MG; Start 03/04/16 at 21:00 Isosorbide Dinitrate (Isordil) 5 mg TID PO Last administered on 03/05/16 09:26 ; Admin Dose 5 MG; Start 03/04/16 at 21:00 Lisinopril (Zestril) 2.5 mg DAILY PO Last administered on 03/05/16 09:27; Admin Dose 2.5 MG; Start 03/05/16 at 09:00 Clopidogrel Bisulfate (plaVIX) 75 mg DAILY PO Last administered on 03/05/16 09: 27; Admin Dose 75 MG; Start 03/05/16 at 09:00 Acetaminophen (Tylenol Tab) 650 mg Q4H PRN PO PAIN AND OR ELEVATED TEMP Last administered on 03/05/16 11:32; Admin Dose 650 MG; Start 03/05/16 at 11:30 SUSANNE DIAZ Mar 05, 2016 11:59
[2016-03-05] MEDS: HEPARIN 25000 UNITS/D5W 250 ML IV SCH (12:30)
--- NOTE | 2016-03-05 13:40 | CONS ---
Date/Time of Note Date/Time of Note DATE: 03/05/16 TIME: 13:38 Consult Date/Type/Reason Admit Date/Time Mar 04, 2016 at 14:42 Initial Consult Date 03/04/16 Type of Consultation: Pulm Subjective No events. Off BiPAP Objective Vital Signs Date Time Temp Pulse Resp B/P Pulse Ox O2 Delivery O2 Flow Rate FiO2 03/05/16 12:50 60 03/05/16 12:20 17 03/05/16 12:00 115/57 99 03/05/16 12:00 97.5 03/05/16 08:00 Nasal Cannula 1.0 03/04/16 12:05 50 Intake and Output 03/04/16 03/04/16 03/05/16 15:00 23:00 07:00 Intake Total 51.5 ml 690 ml Output Total 2100 ml 250 ml Balance 51.5 ml -1410 ml -250 ml HEENT: Normocephalic, atraumatic. NECK: Jugular venous pressures are elevated. CARDIOVASCULAR: Shows there is a regular rate and rhythm, S1, S2 with a II/ systolic murmur. CHEST: Bibasilar crackles and diffusely decreased breath sounds. ABDOMEN: Soft, nontender. EXTREMITIES: No cyanosis, clubbing or edema. Results/Medications Result Diagram: 03/05/16 0625 03/05/16 0625 Results 24 hrs Laboratory Tests Test 03/04/16 15:18 03/04/16 16:35 03/04/16 17:10 03/04/16 22:20 Lactic Acid Level 1.0 Creatine Kinase 308 H 212 H Creatine Kinase Index 16.9 20.3 Creatinine Kinase MB (Mass) 52.20 H 43.00 H Troponin I 20.500 *H 10.100 *H Band Neutrophils % 7.0 H Blood Morphology Comment Hematocrit 39.8 Hemoglobin 13.0 Lymphocytes # 0.8 Lymphocytes % 3.0 L Mean Corpuscular Hemoglobin 33.9 H Mean Corpuscular Hemoglobin Concent 32.7 Mean Corpuscular Volume 103.7 H Mean Platelet Volume 8.5 Monocytes # 0.8 Monocytes % 3.0 Myelocytes # 0.3 Myelocytes % 1.0 H Neutrophils # 23.2 H Neutrophils % 86.0 H Platelet Count 279 Red Blood Count 3.84 L Red Cell Distribution Width 15.5 H White Blood Count 27.0 #H Test 1/8/17 06:25 03/05/16 06:26 Alanine Aminotransferase (ALT/SGPT) 48 Albumin 2.9 L Albumin/Globulin Ratio 1.07 Alkaline Phosphatase 79 Anion Gap 17 H Aspartate Amino Transf (AST/SGOT) 78 H Basophils # 0.0 Basophils % 0.3 Blood Morphology Comment Blood Urea Nitrogen 45 #H Calcium Level 8.8 Carbon Dioxide Level 30 Chloride Level 97 Creatinine 2.19 H Direct Bilirubin 0.00 Eosinophils # 0.0 Eosinophils % 0.1 Globulin 2.70 Glucose Level 96 Hematocrit 29.4 #L Hemoglobin 9.9 #L Hemoglobin A1c 5.6 Indirect Bilirubin 0.2 Lymphocytes # 1.3 Lymphocytes % 7.9 L Mean Corpuscular Hemoglobin 34.8 H Mean Corpuscular Hemoglobin Concent 33.6 Mean Corpuscular Volume 103.6 H Mean Platelet Volume 8.3 Monocytes # 0.7 Monocytes % 3.9 Neutrophils # 14.7 H Neutrophils % 87.8 H Nucleated Red Blood Cells # 0.0 Nucleated Red Blood Cells % 0.0 Platelet Count 197 # Potassium Level 5.9 H Red Blood Count 2.84 #L Red Cell Distribution Width 14.8 H Sodium Level 138 Total Bilirubin 0.2 Total Protein 5.6 L White Blood Count 16.8 #H Cholesterol Level 105 Cholesterol/HDL Ratio 2.4 HDL Cholesterol 43 LDL Cholesterol, Calculated 48 Triglycerides Level 70 Medications Current Medications Ondansetron HCl (Zofran Inj) 4 mg Q6H PRN IV NAUSEA AND/OR VOMITING; Start 03/04 at 11:30 Nitroglycerin (Nitroglycerin (Sl Tab) 0.4 Mg) 1 tab Q5M PRN SL CHEST PAIN; Start 03/04/16 at 11:30 Acetaminophen (Tylenol Supp) 650 mg Q4H PRN [place] PAIN LEVEL 1-3 OR FEVER; Start 03/04/16 at 11:30 Morphine Sulfate (morphine) 2 mg Q4H PRN IV PAIN LEVEL 7-10; Start 03/04/16 at 11:30 Lorazepam (Ativan) 1 mg Q2H PRN IV ANXIETY; Start 03/04/16 at 11:30 Pantoprazole (Protonix Iv) 40 mg DAILY@06 IV Last administered on 03/05/16t 05: 33; Admin Dose 40 MG; Start 03/05/16 at 06:00 Mometasone Furoate 1 puff 1 puff BID INH Last administered on 03/05/16 09:25; Admin Dose 1 PUFF; Start 03/04/16 at 21:00 Levofloxacin/ Dextrose 50 ml @ 50 mls/hr Q48H IVPB ; Start 03/06/16 at 12:00 Heparin Sodium (Porcine) (Heparin 92943 Units/250 ml) 250 ml @ 0 mls/hr Q24H IV ; Start 03/04/16 at 12:30 Miscellaneous Information (* Miscellaneous Pharmacy Order) Hold all Metformin ... ONCE XX Last administered on 03/04/16 14:00; Admin Dose 1 EA; Start at 14:00; Stop 03/06/16 at 13:59 Aspirin (Halfprin) 81 mg DAILY PO Last administered on 03/05/16 09:26; Admin Dose 81 MG; Start 03/05/16 at 09:00 Furosemide (Lasix) 20 mg DAILY@06 PO Last administered on 03/05/16 05:34; Admin Dose 20 MG; Start 03/05/16 at 06:00 Montelukast Sodium (Singulair) 10 mg QHS PO Last administered on 03/04/16 20:59 ; Admin Dose 10 MG; Start 03/04/16 at 21:00 Atorvastatin Calcium (Lipitor) 80 mg DAILY@21 PO Last administered on 03/04/16 20:58; Admin Dose 80 MG; Start 03/04/16 at 21:00 Carvedilol (Coreg) 6.25 mg BID PO Last administered on 03/05/16 09:27; Admin Dose 6.25 MG; Start 03/04/16 at 21:00 Hydralazine HCl (Apresoline) 25 mg TID PO Last administered on 03/05/16 09:26; Admin Dose 25 MG; Start 03/04/16 at 21:00 Isosorbide Dinitrate (Isordil) 5 mg TID PO Last administered on 03/05/16 09:26 ; Admin Dose 5 MG; Start 03/04/16 at 21:00 Lisinopril (Zestril) 2.5 mg DAILY PO Last administered on 03/05/16 09:27; Admin Dose 2.5 MG; Start 03/05/16 at 09:00 Clopidogrel Bisulfate (plaVIX) 75 mg DAILY PO Last administered on 03/05/16 09: 27; Admin Dose 75 MG; Start 03/05/16 at 09:00 Acetaminophen (Tylenol Tab) 650 mg Q4H PRN PO PAIN AND OR ELEVATED TEMP Last administered on 03/05/16 11:32; Admin Dose 650 MG; Start 03/05/16 at 11:30 Assessment/Plan Additional Assessment/Plan IMPRESSION: 1. Acute hypoxemic respiratory insufficiency and chronic hypercapnic respiratory insufficiency likely due to pulmonary edema in a patient with underlying background of chronic obstructive pulmonary disease. The pulmonary edema most likely precipitated by an acute ischemic event. 2. Non-ST elevation myocardial infarction. 3. Chronic kidney disease on hemodialysis. 4. Urosepsis. 5. Hypertensive urgency/emergency. RECOMMENDATIONS: 1. Management as per cardiology. 2. Mobilize OOB 3. Tele okay from pulm perspective. DALTON SCHREIBER MD Mar 05, 2016 13:40
--- NOTE | 2016-03-05 14:55 | RADRPT ---
Echocardiogram Report Patient Name: ALEXIA MARSHALL Gender: Female Date: 1940 Study Date: 05-Mar-2016 Hooker Laster: BRIDGETT Location: I Ref. Physician: ALEX WOODS Quality: Adequate Procedures: Transthoracic echocardiogram with complete 2D, M-Mode, and Doppler examination. Indications: Evaluate Left Ventricular function, S/P labeling specialist exam. 2D/M Mode Doppler Measurement Value Normal Ranges Measurement Value Normal Ranges AoR Diam MM 3.1 cm AV Peak Jason 1.4 m/sec LVIDd 2D 4.7 3.5 - 5.6 cm AV Peak PG 7.6 mmHg LVIDs 2D 4.1 2.1 - 4.1 cm LVOT Peak Jason 0.7 m/sec LVPWd 2D 1.3 0.6 - 1.1 cm LVOT Peak PG 1.7 mmHg IVSd 2D 1.3 0.6 - 1.1 cm MV E Peak Jason 0.8 m/sec EDV 2D 104.0 cm3 MV A Peak Jason 0.5 m/sec ESV 2D 67.1 cm3 MV E/A 1.6 LA Dimen 2D 4.1 2.3 - 4.0 cm MV Decel Time 146 msec MV Decel Grundy 6 MV E/A 1.6 TR Peak Jason 2.7 m/sec TR Peak PG 28.3 mmHg PV Peak Jason 0.9 m/sec PV Peak PG 3.0 mmHg RVSP 31.3 mmHg Findings Left Ventricle: Normal left ventricular cavity size. Mild concentric left ventricular hypertrophy. Ejection fraction is visually estimated at 30 %. Tissue Doppler/Mitral Doppler indices are consistent with pseudonormalization with mildly elevated left atrial pressure (Stage II diastolic dysfunction). E/E`=17. Multiple segmental wall motion abnormalities. E`=0 cm/s. Right Ventricle: Normal right ventricular size. Normal right ventricular systolic function. Left Atrium: There is mild enlargement of left atrium. Right Atrium: The right atrium is normal in size. Atrial Septum: Normal atrial septum. Mitral Valve: Mitral valve leaflets appear mildly thickened. Mild mitral valve regurgitation. Aortic Valve: No hemodynamically significant aortic stenosis by doppler. Aortic cusps appear mildly calcified. Trace aortic valve regurgitation. Tricuspid Valve: Normal appearance of the tricuspid valve. Estimated peak PA systolic pressure 31 mmHg. There is mild tricuspid regurgitation. Pulmonic Valve: Normal pulmonic valve appearance. There is trace pulmonic regurgitation. Pericardium: Normal pericardium with no significant pericardial effusion. Aorta: Normal aortic root. IVC: Normal size and normal respiratory collapse consistent with normal right atrial pressure. Pulmonary Artery: Normal pulmonary artery size. Conclusions Normal left ventricular cavity size. Mild concentric left ventricular hypertrophy. Ejection fraction is visually estimated at 30 %. Tissue Doppler/Mitral Doppler indices are consistent with pseudonormalization with mildly elevated left atrial pressure (Stage II diastolic dysfunction). E/E`=17. Multiple segmental wall motion abnormalities. E`=0 cm/s. Normal right ventricular size. Normal right ventricular systolic function. There is mild enlargement of left atrium. The right atrium is normal in size. Normal atrial septum. Mitral valve leaflets appear mildly thickened. Mild mitral valve regurgitation. No hemodynamically significant aortic stenosis by doppler. Aortic cusps appear mildly calcified. Trace aortic valve regurgitation. Normal appearance of the tricuspid valve. Estimated peak PA systolic pressure 31 mmHg. There is mild tricuspid regurgitation. Electronically Signed By: Alex Woods 05-Mar-2016 14:54:23 -0800 Patient Name: ALEXIA MARSHALL Study Date: 05-Mar-2016 [id number]
--- NOTE | 2016-03-05 14:59 | CONS ---
Date/Time of Note Date/Time of Note DATE: 03/05/16 TIME: 14:57 Consult Date/Type/Reason Admit Date/Time Mar 04, 2016 at 14:42 Initial Consult Date 03/04/16 Type of Consultation: card Objective Vital Signs Date Time Temp Pulse Resp B/P Pulse Ox O2 Delivery O2 Flow Rate FiO2 03/05/16 14:37 60 03/05/16 12:20 17 03/05/16 12:00 115/57 99 03/05/16 12:00 97.5 03/05/16 08:00 Nasal Cannula 1.0 03/04/16 12:05 50 Intake and Output 03/04/16 03/04/16 03/05/16 15:00 23:00 07:00 Intake Total 51.5 ml 690 ml Output Total 2100 ml 250 ml Balance 51.5 ml -1410 ml -250 ml Results/Medications Result Diagram: 03/05/16 0625 03/05/16 0625 Results 24 hrs Laboratory Tests Test 03/04/16 15:18 03/04/16 16:35 03/04/16 17:10 03/04/16 22:20 Lactic Acid Level 1.0 Creatine Kinase 308 H 212 H Creatine Kinase Index 16.9 20.3 Creatinine Kinase MB (Mass) 52.20 H 43.00 H Troponin I 20.500 *H 10.100 *H Band Neutrophils % 7.0 H Blood Morphology Comment Hematocrit 39.8 Hemoglobin 13.0 Lymphocytes # 0.8 Lymphocytes % 3.0 L Mean Corpuscular Hemoglobin 33.9 H Mean Corpuscular Hemoglobin Concent 32.7 Mean Corpuscular Volume 103.7 H Mean Platelet Volume 8.5 Monocytes # 0.8 Monocytes % 3.0 Myelocytes # 0.3 Myelocytes % 1.0 H Neutrophils # 23.2 H Neutrophils % 86.0 H Platelet Count 279 Red Blood Count 3.84 L Red Cell Distribution Width 15.5 H White Blood Count 27.0 #H Test 03/05/16 06:25 03/05/16 06:26 Alanine Aminotransferase (ALT/SGPT) 48 Albumin 2.9 L Albumin/Globulin Ratio 1.07 Alkaline Phosphatase 79 Anion Gap 17 H Aspartate Amino Transf (AST/SGOT) 78 H Basophils # 0.0 Basophils % 0.3 Blood Morphology Comment Blood Urea Nitrogen 45 #H Calcium Level 8.8 Carbon Dioxide Level 30 Chloride Level 97 Creatinine 2.19 H Direct Bilirubin 0.00 Eosinophils # 0.0 Eosinophils % 0.1 Globulin 2.70 Glucose Level 96 Hematocrit 29.4 #L Hemoglobin 9.9 #L Hemoglobin A1c 5.6 Indirect Bilirubin 0.2 Lymphocytes # 1.3 Lymphocytes % 7.9 L Mean Corpuscular Hemoglobin 34.8 H Mean Corpuscular Hemoglobin Concent 33.6 Mean Corpuscular Volume 103.6 H Mean Platelet Volume 8.3 Monocytes # 0.7 Monocytes % 3.9 Neutrophils # 14.7 H Neutrophils % 87.8 H Nucleated Red Blood Cells # 0.0 Nucleated Red Blood Cells % 0.0 Platelet Count 197 # Potassium Level 5.9 H Red Blood Count 2.84 #L Red Cell Distribution Width 14.8 H Sodium Level 138 Total Bilirubin 0.2 Total Protein 5.6 L White Blood Count 16.8 #H Cholesterol Level 105 Cholesterol/HDL Ratio 2.4 HDL Cholesterol 43 LDL Cholesterol, Calculated 48 Triglycerides Level 70 Medications Current Medications Ondansetron HCl (Zofran Inj) 4 mg Q6H PRN IV NAUSEA AND/OR VOMITING; Start 03/04 at 11:30 Nitroglycerin (Nitroglycerin (Sl Tab) 0.4 Mg) 1 tab Q5M PRN SL CHEST PAIN; Start 03/04/16 at 11:30 Acetaminophen (Tylenol Supp) 650 mg Q4H PRN [place] PAIN LEVEL 1-3 OR FEVER; Start 03/04/16 at 11:30 Morphine Sulfate (morphine) 2 mg Q4H PRN IV PAIN LEVEL 7-10; Start 03/04/16 at 11:30 Lorazepam (Ativan) 1 mg Q2H PRN IV ANXIETY; Start 03/04/16 at 11:30 Pantoprazole (Protonix Iv) 40 mg DAILY@06 IV Last administered on 03/05/16 05: 33; Admin Dose 40 MG; Start 03/05/16 at 06:00 Mometasone Furoate 1 puff 1 puff BID INH Last administered on 03/05/16 09:25; Admin Dose 1 PUFF; Start 03/04/16 at 21:00 Levofloxacin/ Dextrose 50 ml @ 50 mls/hr Q48H IVPB ; Start 03/06/16 at 12:00 Heparin Sodium (Porcine) (Heparin 70828 Units/250 ml) 250 ml @ 0 mls/hr Q24H IV ; Start 03/04/16 at 12:30 Miscellaneous Information (* Miscellaneous Pharmacy Order) Hold all Metformin ... ONCE XX Last administered on 03/04/16 14:00; Admin Dose 1 EA; Start at 14:00; Stop 03/06/16 at 13:59 Aspirin (Halfprin) 81 mg DAILY PO Last administered on 03/05/16 09:26; Admin Dose 81 MG; Start 03/05/16 at 09:00 Furosemide (Lasix) 20 mg DAILY@06 PO Last administered on 03/05/16 05:34; Admin Dose 20 MG; Start 03/05/16 at 06:00 Montelukast Sodium (Singulair) 10 mg QHS PO Last administered on 03/04/16 20:59 ; Admin Dose 10 MG; Start 03/04/16 at 21:00 Atorvastatin Calcium (Lipitor) 80 mg DAILY@21 PO Last administered on 03/04/16 20:58; Admin Dose 80 MG; Start 03/04/16 at 21:00 Carvedilol (Coreg) 6.25 mg BID PO Last administered on 03/05/16 09:27; Admin Dose 6.25 MG; Start 03/04/16 at 21:00 Hydralazine HCl (Apresoline) 25 mg TID PO Last administered on 03/05/16 09:26; Admin Dose 25 MG; Start 03/04/16 at 21:00 Isosorbide Dinitrate (Isordil) 5 mg TID PO Last administered on 03/05/16 09:26 ; Admin Dose 5 MG; Start 03/04/16 at 21:00 Lisinopril (Zestril) 2.5 mg DAILY PO Last administered on 03/05/16 09:27; Admin Dose 2.5 MG; Start 03/05/16 at 09:00 Clopidogrel Bisulfate (plaVIX) 75 mg DAILY PO Last administered on 03/05/16 09: 27; Admin Dose 75 MG; Start 03/05/16 at 09:00 Acetaminophen (Tylenol Tab) 650 mg Q4H PRN PO PAIN AND OR ELEVATED TEMP Last administered on 03/05/16 11:32; Admin Dose 650 MG; Start 1/8/17 at 11:30 Assessment/Plan Chief Complaint/Hosp Course Patient is 75-year-old female with past medical history of coronary artery disease status post bypass surgery, severe peripheral vascular disease status post aortofemoral bypass, ESRD on hemodialysis, hypertension, dyslipidemia who presented to ER with a complaining of shortness of breath and pulmonary edema found to have elevated troponin with EKG changes was initially meetings [place] criteria on left bundle-branch block but patient was at that time tachycardic source STEMI was not called but H and was high risk non-ST elevation myocardial infarction with some EKG changes and troponin of 2.5 with significant coronary artery disease risk and history with the patient to urgently to cardiac Nursing Clerk Problems: Additional Assessment/Plan Post PCI of LM Trop peak to 20. now 10 Pt is doing fine On good HF therapy for ischmeic CMP Will need [employer] on D./C pilot manager on case [employer] needs to be contacted. f./u in office one week post d/c tx out to tele today. HD today ARTURO REINOSO MD Mar 05, 2016 14:59
[2016-03-05] MEDS: ATORVASTATIN 80 MG TAB PO SCH (20:47)
[2016-03-05] MEDS: MONTELUKAST 10 MG TAB PO SCH (20:47)
[2016-03-06] VITALS (20 sets, daily range): BP systolic 100–160; BP diastolic 28–73; PULSE 52–99; RESP 17–19
[2016-03-06] MEDS: ALBUTEROL 0.5% (NEB) 2.5 MG/0.5 ML AMP NEB SCH ×4 (01:48→20:00)
[2016-03-06] MEDS: IPRATROPIUM (NEB) 0.5 MG/2.5 ML AMP NEB SCH ×4 (01:48→21:11)
[2016-03-06] MEDS: PANTOPRAZOLE 40 MG INJ IV SCH (05:19)
[2016-03-06] MEDS: FUROSEMIDE 20 MG TAB PO SCH (05:20)
[2016-03-06] MEDS: LOPERAMIDE 2 MG CAP PO PRN ×2 (05:58→13:11)
--- NOTE | 2016-03-06 08:50 | SP ---
DATE OF PROCEDURE: 03/04/2016 INDICATIONS FOR THE PROCEDURE: 1. Acute coronary syndrome. 2. Non-ST elevation myocardial infarction. 3. Dynamic EKG changes. PROCEDURES PERFORMED: 1. Selective right and left coronary angiography. 2. Bypass coronary angiography with GARCIA angiography. 3. Selective right femoral angiography. 4. Successful Angio-Seal placement of the right femoral. 5. Selective left iliac angiography. 6. Complex intervention with PCI of left main with 3.5 x 12 mm drug-eluting stent. 7. Successful intravascular ultrasound of left main. 8. Supervised procedural sedation. 9. Fluoroscopy. PROCEDURE IN DETAIL: After informed consent, the patient was brought to cardiac catheterization lab . The patient came into the ER with a high risk non-ST elevation myocardial infarction. The patien t has a significant history of coronary artery disease as well as ESRD. The patient is a very high risk for cardiac procedure as well as stroke during the procedure and emergent surgery. The patient and family have been explained in detail the risks and benefits and agreed for the procedure. The patient was prepped and draped in a supine position with both groins were prepped. The left franny in was accessed with a 6 Yoruba slender sheath. We started the procedure over an 0.035 wire with FL and FR diagnostic catheters engaged into coronary artery selectively, left and right. When we enga ged into the left main, the left pressure was dampened significantly from the normal pressure and fo und to have only circumflex artery open. The patient did not have any LAD other than the stum p. Followed by that, a 3DRC diagnostic catheter engaged into the right coronary artery with severel y calcified external right coronary artery with a patent stent in the mid RCA with a patent artery. Followed by that, same catheter was attempted to engage into any of the graft, which did not in the ascending aorta. Followed by that, the same catheter was engaged into the left subclavian. Subclavian angiography was performed. Followed by that, same catheter was engaged into GARCIA and OCONNOR A angiography was performed. Followed by that, we took a pigtail and the pigtail entered into LV. LV gram was performed. Followed by that, aortogram was performed with the same pigtail which pulled out from the aortic valve. At this time after reviewing all the pictures, we decided to do an IVUS of the ostial left main, which showed severe left main stenosis with severe calcification 70% to 80 %. At this time, due to the fact that patient had the high risk NSTEMI with this tight left main st enosis without any graft going to the circumflex, we decided to intervene on the left main. The IVU S was performed with a FL3.5 guide with a BMW wire which was crossed already into the circumflex We took a 2.5 x 8 mm compliant balloon and opened up the left main calcification, which did not break completely. Followed by that, we took a stent 3.5 x 12 mm drug-eluting and with complexity and hard work, finally we were able to cross the stent into the left main and successful left main stenting was performed. Followed by that, the post-stenting dilatation was done with 3.75 x 8 mm noncomplian t balloon at 16, 18 and 22 atmospheres, respectively to all the way to the ostium. Followed by that , procedure was finished without any complication and residual stenosis was less than 10%, with the guide perfectly engaged into the left main without any dampening of the pressure. COMPLICATIONS: None. CONTRAST: 180 mL. CORONARY FINDINGS: 1. Left main ostial 70% to 80% severely calcified stenosis going into left main. 2. LAD: Proximal severely calcified 100% SLATE HANDLER. 3. Left circumflex artery: Large OM2 supplying the entire lateral area as well as the apex. There is a small to medium sized OM1 as well coming out on the mid circumflex. 4. Right coronary artery: Proximal mid and distal mild diffuse disease with a patent stent in the mid RCA. BYPASS ANGIOGRAPHY: GARCIA to LAD patent with LAD entirely supplied by the GARCIA as well as retrograde filling of the diagonal. AORTOGRAM: There is no graft seen in the aortogram with the aorta normal size. LV GRAM: LVEF is 25% to 30% with no aortic stenosis with EDP of 25 to 27 mmHg. CONCLUSION: 1. Significant stenosis of the ostial left main 70% to 80% with severe calcification. 2. Successful IVUS of the left main showing critical stenosis of the ostial left main. 3. Complex successful PCI of calcified left main ostium with 3.5 x 12 mm drug-eluting stent. RECOMMENDATIONS: 1. Aspirin and Plavix at least for 1 year. 2. Admit to ICU. 3. Maximal medical therapy and lifestyle modification. 4. Follow up outpatient. 5. The patient may be discharged with a LifeVest and 90 days follow up with an echo. Dictated By: ARTURO JENNINGS/DUTCH Conf#: [id number] DID#: [id number]
[2016-03-06] MEDS ORDERED: NITR-58 PO (08:51)
[2016-03-06] MEDS: ACETAMINOPHEN 325 MG TAB PO PRN (08:54)
[2016-03-06] MEDS: ASPIRIN (EC) 81 MG TAB PO SCH (08:54)
[2016-03-06] MEDS: ISOSORBIDE DINITRATE 10 MG TAB PO SCH ×3 (08:55→20:53)
[2016-03-06] MEDS: CLOPIDOGREL 75 MG TAB PO SCH (08:56)
[2016-03-06] MEDS: MOMETASONE 0.24 GM INHALER INH SCH ×2 (08:56→20:52)
[2016-03-06] MEDS: LISINOPRIL 5 MG TAB PO SCH (08:57)
[2016-03-06] MEDS ORDERED: SACU1TAB PO (09:26)
--- NOTE | 2016-03-06 09:28 | CONS ---
Date/Time of Note Date/Time of Note DATE: 03/06/16 TIME: 09:27 Consult Date/Type/Reason Admit Date/Time Mar 04, 2016 at 14:42 Initial Consult Date 03/04/16 Type of Consultation: card Objective Vital Signs Date Time Temp Pulse Resp B/P Pulse Ox O2 Delivery O2 Flow Rate FiO2 03/06/16 08:18 63 03/06/16 07:54 16 99 Nasal Cannula 2.0 03/06/16 07:47 98.1 142/63 03/04/16 12:05 50 Intake and Output 03/05/16 03/05/16 03/06/16 15:00 23:00 07:00 Intake Total 860 ml 600 ml Output Total 2800 ml Balance -1940 ml 600 ml Results/Medications Result Diagram: 03/05/1662403/05/16 06 Medications Current Medications Ondansetron HCl (Zofran Inj) 4 mg Q6H PRN IV NAUSEA AND/OR VOMITING; Start 03/04 at 11:30 Nitroglycerin (Nitroglycerin (Sl Tab) 0.4 Mg) 1 tab Q5M PRN SL CHEST PAIN; Start 03/04/16 at 11:30 Acetaminophen (Tylenol Supp) 650 mg Q4H PRN [place] PAIN LEVEL 1-3 OR FEVER; Start 03/04/16 at 11:30 Morphine Sulfate (morphine) 2 mg Q4H PRN IV PAIN LEVEL 7-10; Start 03/04/16 at 11:30 Lorazepam (Ativan) 1 mg Q2H PRN IV ANXIETY; Start 03/04/16 at 11:30 Pantoprazole (Protonix Iv) 40 mg DAILY@06 IV Last administered on 03/06/16 05: 19; Admin Dose 40 MG; Start 03/05/16 at 06:00 Mometasone Furoate 1 puff 1 puff BID INH Last administered on 03/06/16 08:56; Admin Dose 1 PUFF; Start 03/04/16 at 21:00 Levofloxacin/ Dextrose (Levaquin 250 Mg/ D5W 50 ml (Pmx)) 50 ml @ 50 mls/hr Q48H IVPB ; Start 03/06/16 at 12:00 Miscellaneous Information (* Miscellaneous Pharmacy Order) Hold all Metformin ... ONCE XX Last administered on 03/04/16 14:00; Admin Dose 1 EA; Start at 14:00; Stop 03/06/16 at 13:59 Aspirin (Halfprin) 81 mg DAILY PO Last administered on 03/06/16 08:54; Admin Dose 81 MG; Start 03/05/16 at 09:00 Furosemide (Lasix) 20 mg DAILY@06 PO Last administered on 03/06/16 05:20; Admin Dose 20 MG; Start 03/05/16 at 06:00 Montelukast Sodium (Singulair) 10 mg QHS PO Last administered on 03/05/16 20:47 ; Admin Dose 10 MG; Start 03/04/16 at 21:00 Atorvastatin Calcium (Lipitor) 80 mg DAILY@21 PO Last administered on 03/05/16 20:47; Admin Dose 80 MG; Start 03/04/16 at 21:00 Carvedilol (Coreg) 6.25 mg BID PO Last administered on 03/06/16 08:56; Admin Dose 6.25 MG; Start 03/04/16 at 21:00 Hydralazine HCl (Apresoline) 25 mg TID PO Last administered on 03/06/16 08:55; Admin Dose 25 MG; Start 03/04/16 at 21:00 Isosorbide Dinitrate (Isordil) 5 mg TID PO Last administered on 03/06/16 08:55 ; Admin Dose 5 MG; Start 03/04/16 at 21:00 Lisinopril (Zestril) 2.5 mg DAILY PO Last administered on 03/06/16 08:57; Admin Dose 2.5 MG; Start 03/05/16 at 09:00 Clopidogrel Bisulfate (plaVIX) 75 mg DAILY PO Last administered on 03/06/16 08: 56; Admin Dose 75 MG; Start 03/05/16 at 09:00 Acetaminophen (Tylenol Tab) 650 mg Q4H PRN PO PAIN AND OR ELEVATED TEMP Last administered on 03/06/16 08:54; Admin Dose 650 MG; Start 03/05/16 at 11:30 Loperamide HCl (Imodium Cap) 2 mg QID PRN PO loose stool Last administered on 05:58; Admin Dose 2 MG; Start 03/06/16 at 06:00 Assessment/Plan Chief Complaint/Hosp Course Patient is 75-year-old female with past medical history of coronary artery disease status post bypass surgery, severe peripheral vascular disease status post aortofemoral bypass, ESRD on hemodialysis, hypertension, dyslipidemia who presented to ER with a complaining of shortness of breath and pulmonary edema found to have elevated troponin with EKG changes was initially meetings Scarboso criteria on left bundle-branch block but patient was at that time tachycardic source STEMI was not called but H and was high risk non-ST elevation myocardial infarction with some EKG changes and troponin of 2.5 with significant coronary artery disease risk and history with the patient to urgently to cardiac [employer] Problems: Additional Assessment/Plan Ischemic CMP LM PCI CABG LVEF 30% Will need lifevest on dc f/u in office 1 week start Entresto on d/c palvix asa will /fu ARTURO REINOSO MD Mar 06, 2016 09:27
--- NOTE | 2016-03-06 09:33 | PDOCDIS ---
Discharge Instructions DIAGNOSIS Discharge Diagnosis: 1. non ST elevated myocardial infarction 2. ESRD CONDITION Patient Condition: Stable HOME CARE INSTRUCTIONS: Special Diet: low fat low cholesterol FOLLOW UP/APPOINTMENTS Appointments 1. Follow up with Dr. Alex Woods within one week 2. Follow up with your primary care provider in 1-2 weeks 3. Follow up with your dialysis center for your regularly scheduled dialysis OTHER ORDERS: Other Orders: 1. Call 911 if you have worsening chest pain/shortness of breath SUSANNE DIAZ Mar 06, 2016 09:33
[2016-03-06 10:38] LABS: BASOPHILS % 0.2 % (0.0-2.0); EOSINOPHILS # 0.4 10^3/ul (0.0-0.5); EOSINOPHILS % 2.9 % (0.0-7.0); HEMATOCRIT 26.7 % (37.0-47.0); HEMOGLOBIN 8.8 g/dl (12.0-16.0); LYMPHOCYTES # 0.9 10^3/ul (0.8-2.9); LYMPHOCYTES % 6.4 % (15.0-51.0); MEAN CORPUSCULAR HEMOGLOBIN 33.7 pg (29.0-33.0); MEAN CORPUSCULAR HGB CONC 32.8 g/dl (32.0-37.0); MEAN CORPUSCULAR VOLUME 102.8 fl (82.0-101.0); MEAN PLATELET VOLUME 8.2 fl (7.4-10.4); MONOCYTE # 0.7 10^3/ul (0.3-0.9); NEUTROPHIL # 11.5 10^3/ul (1.6-7.5); NEUTROPHILS % 85.5 % (39.0-77.0); PLATELET COUNT 196 10^3/UL (140-440); RED BLOOD COUNT 2.59 10^6/ul (4.20-5.40); UNCORRECTED WBC 13.5 10^3/ul (4.8-10.8); WHITE BLOOD COUNT 13.5 10^3/ul (4.8-10.8)
[2016-03-06 10:47] LABS: POTASSIUM 3.8 mmol/L (3.5-5.1)
[2016-03-06 10:49] LABS: CREATININE 2.15 mg/dl (0.44-1.00)
[2016-03-06 10:50] LABS: CALCIUM 7.6 mg/dl (8.4-10.2); CONDITION 1; LH ANALYZER COMMENTS 1
--- NOTE | 2016-03-06 11:02 | PN ---
DATE: 03/06/2016 SUBJECTIVE: The patient is stable, no acute events overnight. The patient had hemodialysis yesterd ay, tolerated well. OBJECTIVE: VITAL SIGNS: Blood pressure 142/60, respiration 19, pulse 60, temperature 98.1. HEENT: Head is normocephalic. NECK: Supple. HEART: Regular rate. LUNGS: Show diminished breath sounds at base. ABDOMEN: Soft, nontender to palpation without rebound or guarding. EXTREMITIES: Negative for clubbing, cyanosis, or edema. DERMATOLOGIC: No rashes. MUSCULOSKELETAL: No joint effusions. NEUROLOGIC: No change in exam. MEDICATIONS: The patient's medications have been reviewed. LABORATORY DATA: Laboratory data from February from 03/05/2016. The 03/06/2016 laboratory data is c urrently pending. ASSESSMENT AND PLAN: 1. End-stage renal disease. The patient is on dialysis Sunday, , Sunday with access of a PermCath. The patient's last hemodialysis was yesterday. Will plan for dialysis tomorrow. 2. Anemia of end-stage renal disease. Will continue to monitor H and H levels. Will give Epogen w ith hemodialysis. 3. Mineral bone disorder, will monitor calcium and phosphorus levels. We will give phosphate binde rs as needed. 4. Hypertension. Continue current blood pressure regimen. 5. Hyperkalemia. The patient was dialyzed on a low potassium bath, will continue. Continue low-po tassium diet. 6. Non-ST elevation myocardial infarction. Continue current medical management. 7. Healthcare-associated pneumonia. Continue current antibiotic regimen. 8. Acute respiratory failure secondary to pneumonia and chronic obstructive pulmonary disease. Con tinue medical treatment plan. Continue bronchodilators, oxygen. Continue BiPAP as needed, antibiot ic therapy. Dictated By: TOM CUNNINGHAM/DUTCH Conf#: [id number] DID#: [id number]
[2016-03-06] MEDS: LEVOFLOXACIN 250MG/D5W (PMX) 50 ML IVPB SCH (12:42)
--- NOTE | 2016-03-06 13:06 | PN ---
Date/Time of Note Date/Time of Note DATE: 03/06/16 TIME: 13:05 Assessment/Plan VTE Prophylaxis VTE Prophylaxis Intervention: SCD's Lines/Catheters IV Catheter Type (from [facility] Saline Lock Urinary Cath still in place: No Assessment/Plan Chief Complaint/Hosp Course Assessment and plan 1. Non-ST elevated myocardial infarction. The patient is status post percutaneous coronary intervention with stent placement. Continue on antiplatelet therapy. Continue on beta-angelica. 2. History of coronary artery disease with coronary artery bypass graft. continue antiplatelet therapy 3. Healthcare-acquired pneumonia. We will continue the patient on antibiotics. Will provide with bronchodilators as needed for shortness of breath. 4. Acute respiratory failure secondary to #3. Improved at present. Will put on bronchodilators, titrate down O2 as tolerated. Off BiPAP at this time. 5. Sepsis secondary to pneumonia. Appears to be improving at present. We will follow up on CBC. Continue current antibiotics. h. 6. End-stage renal disease on dialysis. Tempering Kiln Tender is following. Continue on dialysis. Monitor for hyperkalemia. 7. Accelerated hypertension. We will continue on antihypertensives and adjust as needed. Disposition and plan: Does appear to be overall stable. d/c planning. will need life vest prior to d/c. will follow up with case management Discussed plan of care with Dr. Kingsley Problems: Subjective 24 Hr Interval Summary Free Text/Dictation comfortable. no s/s of distress Exam/Review of Systems Vital Signs Vitals Vital Signs Date Time Temp Pulse Resp B/P Pulse Ox O2 Delivery O2 Flow Rate FiO2 03/06/16 12:04 60 03/06/16 11:59 98.5 18 100/53 95 03/06/16 08:15 Nasal Cannula 2.0 03/04/16 12:05 50 Intake and Output 03/05/16 03/05/16 03/06/16 15:00 23:00 07:00 Intake Total 860 ml 600 ml Output Total 2800 ml Balance -1940 ml 600 ml Exam General: No acute signs or symptoms of distress Eyes: pupils equal round, Anicteric sclera Neck: Supple nontender, no JVD Cardiac: S1, S2 auscultated, regular rhythm and rate Pulmonary: No coarse rhonchi or breathing auscultated GI: Abdomen soft nontender nondistended, bowel sounds active Extremities: No edema bilateral lower extremities Skin: dialysis access right upper chest Neurologic: Alert to person place and time and situation Results Result Diagram: 03/06/16 1010 03/06/16 1010 Results 24 hrs Laboratory Tests Test 03/06/16 10:10 Anion Gap 13 Basophils # 0.0 Basophils % 0.2 Blood Morphology Comment Blood Urea Nitrogen 36 H Calcium Level 7.6 L Carbon Dioxide Level 30 Chloride Level 93 L Creatinine 2.15 H Eosinophils # 0.4 Eosinophils % 2.9 Glucose Level 97 Hematocrit 26.7 L Hemoglobin 8.8 L Lymphocytes # 0.9 Lymphocytes % 6.4 L Mean Corpuscular Hemoglobin 33.7 H Mean Corpuscular Hemoglobin Concent 32.8 Mean Corpuscular Volume 102.8 H Mean Platelet Volume 8.2 Monocytes # 0.7 Monocytes % 5.0 Neutrophils # 11.5 H Neutrophils % 85.5 H Nucleated Red Blood Cells # 0.0 Nucleated Red Blood Cells % 0.0 Platelet Count 196 Potassium Level 3.8 # Red Blood Count 2.59 L Red Cell Distribution Width 15.0 H Sodium Level 132 L White Blood Count 13.5 H Medications Medications Current Medications Ondansetron HCl (Zofran Inj) 4 mg Q6H PRN IV NAUSEA AND/OR VOMITING; Start 03/04 at 11:30 Nitroglycerin (Nitroglycerin (Sl Tab) 0.4 Mg) 1 tab Q5M PRN SL CHEST PAIN; Start 03/04/16 at 11:30 Acetaminophen (Tylenol Supp) 650 mg Q4H PRN [place] PAIN LEVEL 1-3 OR FEVER; Start 03/04/16 at 11:30 Morphine Sulfate (morphine) 2 mg Q4H PRN IV PAIN LEVEL 7-10; Start 03/04/16 at 11:30 Lorazepam (Ativan) 1 mg Q2H PRN IV ANXIETY; Start 03/04/16 at 11:30 Pantoprazole (Protonix Iv) 40 mg DAILY@06 IV Last administered on 03/06/16 05: 19; Admin Dose 40 MG; Start 03/05/16 at 06:00 Mometasone Furoate 1 puff 1 puff BID INH Last administered on 03/06/16 08:56; Admin Dose 1 PUFF; Start 03/04/16 at 21:00 Levofloxacin/ Dextrose (Levaquin 250 Mg/ D5W 50 ml (Pmx)) 50 ml @ 50 mls/hr Q48H IVPB Last administered on 03/06/16 12:42; Admin Dose 50 MLS/HR; Start 03/06 at 12:00 Miscellaneous Information (* Miscellaneous Pharmacy Order) Hold all Metformin ... ONCE XX Last administered on 03/04/16 14:00; Admin Dose 1 EA; Start at 14:00; Stop 03/06/16 at 13:59 Aspirin (Halfprin) 81 mg DAILY PO Last administered on 03/06/16 08:54; Admin Dose 81 MG; Start 03/05/16 at 09:00 Furosemide (Lasix) 20 mg DAILY@06 PO Last administered on 03/06/16 05:20; Admin Dose 20 MG; Start 03/05/16 at 06:00 Montelukast Sodium (Singulair) 10 mg QHS PO Last administered on 03/05/16 20:47 ; Admin Dose 10 MG; Start 03/04/16 at 21:00 Atorvastatin Calcium (Lipitor) 80 mg DAILY@21 PO Last administered on 03/05/16 20:47; Admin Dose 80 MG; Start 03/04/16 at 21:00 Carvedilol (Coreg) 6.25 mg BID PO Last administered on 03/06/16 08:56; Admin Dose 6.25 MG; Start 03/04/16 at 21:00 Hydralazine HCl (Apresoline) 25 mg TID PO Last administered on 03/06/16 08:55; Admin Dose 25 MG; Start 03/04/16 at 21:00 Isosorbide Dinitrate (Isordil) 5 mg TID PO Last administered on 03/06/16 12:44 ; Admin Dose 5 MG; Start 03/04/16 at 21:00 Lisinopril (Zestril) 2.5 mg DAILY PO Last administered on 03/06/16 08:57; Admin Dose 2.5 MG; Start 03/05/16 at 09:00 Clopidogrel Bisulfate (plaVIX) 75 mg DAILY PO Last administered on 03/06/16 08: 56; Admin Dose 75 MG; Start 03/05/16 at 09:00 Acetaminophen (Tylenol Tab) 650 mg Q4H PRN PO PAIN AND OR ELEVATED TEMP Last administered on 03/06/16 08:54; Admin Dose 650 MG; Start 03/05/16 at 11:30 Loperamide HCl (Imodium Cap) 2 mg QID PRN PO loose stool Last administered on 05:58; Admin Dose 2 MG; Start 03/06/16 at 06:00 SUSANNE DIAZ Mar 06, 2016 13:06
[2016-03-06] MEDS ORDERED: HEPARIN 1000 UNITS/ML 10 ML INJ CATHETER ONE (15:00)
[2016-03-06] MEDS ORDERED: [UNRECOGNIZED DRUG - OTHER] XX SCH (17:00)
[2016-03-06] MEDS: EPOETIN 10000 UNITS/1 ML INJ (ESRD) SC SCH (17:51)
[2016-03-06] MEDS: ATORVASTATIN 80 MG TAB PO SCH (20:52)
[2016-03-06] MEDS: MONTELUKAST 10 MG TAB PO SCH (20:52)
[2016-03-07] VITALS (15 sets, daily range): BP systolic 123–152; BP diastolic 53–69; PULSE 55–75; RESP 16–19
[2016-03-07] MEDS: ALBUTEROL 0.5% (NEB) 2.5 MG/0.5 ML AMP NEB SCH ×4 (02:00→19:50)
[2016-03-07] MEDS: IPRATROPIUM (NEB) 0.5 MG/2.5 ML AMP NEB SCH ×4 (02:00→19:49)
[2016-03-07] MEDS: PANTOPRAZOLE 40 MG INJ IV SCH (06:25)
[2016-03-07] MEDS: FUROSEMIDE 20 MG TAB PO SCH (06:28)
[2016-03-07] MEDS: ASPIRIN (EC) 81 MG TAB PO SCH (09:37)
[2016-03-07] MEDS: LISINOPRIL 5 MG TAB PO SCH (09:37)
[2016-03-07] MEDS: CLOPIDOGREL 75 MG TAB PO SCH (09:37)
[2016-03-07] MEDS: ISOSORBIDE DINITRATE 10 MG TAB PO SCH ×3 (09:38→21:23)
[2016-03-07] MEDS: MOMETASONE 0.24 GM INHALER INH SCH ×2 (09:39→21:24)
[2016-03-07] MEDS: LOPERAMIDE 2 MG CAP PO PRN ×2 (10:11→18:17)
--- NOTE | 2016-03-07 10:40 | PN ---
DATE: 03/07/2016 SUBJECTIVE: The patient is stable, no acute events overnight. No fevers, chills, nausea, vomiting. Also the patient had hemodialysis yesterday, tolerated well. OBJECTIVE: VITAL SIGNS: Blood pressure is 145/54, respirations 17, pulse 68, temperature 99.0. HEENT: Head is normocephalic. NECK: Supple. HEART: Regular rate. LUNGS: Show diminished breath sounds at base. ABDOMEN: Soft, nontender to palpation. No rebound or guarding. EXTREMITIES: Negative for clubbing, cyanosis, no edema. DERMATOLOGIC: No rashes. MUSCULOSKELETAL: No joint effusions. NEUROLOGIC: No change in exam. MEDICATIONS: The patient's medications reviewed. LABORATORY DATA: Has been reviewed. No new labs today. ASSESSMENT AND PLAN: 1. End-stage renal disease. The patient had hemodialysis yesterday, tolerated well, currently off schedule. She is on a Sunday, , Sunday schedule. Plan will be for dialysis again tomorr ow, and the patient will be dialyzed for 3 hours on 3 K bath, calcium 2.5, will ultrafiltrate as graciela erated. 2. Anemia of end-stage renal disease. Hemoglobin level stable. Continue Epogen. 3. Mineral bone disorder. Will monitor calcium and phosphorus levels. Continue phos binders. 4. Hypertension. Continue current blood pressure regimen. 5. Hypokalemia, improved. 6. Hyponatremia secondary to end-stage renal disease. Continue patient on a low sodium bath. 7. Non-ST elevation myocardial infarction. Continue medical management. 8. Healthcare-associated pneumonia. Continue current antibiotic regimen. 9. Acute respiratory failure secondary to pneumonia, COPD. Continue medical management. Dictated By: TOM CUNNINGHAM/DUTCH Conf#: [id number] DID#: [id number]
[2016-03-07 11:12] LABS: BASOPHILS % 0.1 % (0.0-2.0); EOSINOPHILS # 0.3 10^3/ul (0.0-0.5); EOSINOPHILS % 2.2 % (0.0-7.0); HEMATOCRIT 26.4 % (37.0-47.0); HEMOGLOBIN 8.8 g/dl (12.0-16.0); LYMPHOCYTES # 0.9 10^3/ul (0.8-2.9); LYMPHOCYTES % 7.6 % (15.0-51.0); MEAN CORPUSCULAR HEMOGLOBIN 34.4 pg (29.0-33.0); MEAN CORPUSCULAR HGB CONC 33.5 g/dl (32.0-37.0); MEAN CORPUSCULAR VOLUME 102.6 fl (82.0-101.0); MEAN PLATELET VOLUME 8.6 fl (7.4-10.4); MONOCYTE # 0.5 10^3/ul (0.3-0.9); MONOCYTES % 4.7 % (0.0-11.0); NEUTROPHIL # 9.9 10^3/ul (1.6-7.5); NEUTROPHILS % 85.4 % (39.0-77.0); PLATELET COUNT 182 10^3/UL (140-440); RED BLOOD COUNT 2.57 10^6/ul (4.20-5.40); RED CELL DISTRIBUTION WIDTH 15.3 % (11.5-14.5); UNCORRECTED WBC 11.6 10^3/ul (4.8-10.8); WHITE BLOOD COUNT 11.6 10^3/ul (4.8-10.8)
[2016-03-07 11:15] LABS: CONDITION 1; LH ANALYZER COMMENTS 1
[2016-03-07 11:18] LABS: POTASSIUM 3.9 mmol/L (3.5-5.1)
[2016-03-07 11:21] LABS: CREATININE 2.1 mg/dl (0.44-1.00)
--- NOTE | 2016-03-07 14:23 | PN ---
DATE: 03/07/2016 PULMONARY FOLLOWUP SUBJECTIVE: Chart reviewed. No significant events noted. The patient is on 4 liters O2 nasal cannu la, saturating 98% and does not appear in acute distress. PHYSICAL EXAMINATION: VITAL SIGNS: Blood pressure 134/60, pulse 65, respirations 17, temperature 98.4. HEENT: Pupils are equal and reactive to light. NECK: Supple, no JVD noted, no cervical lymphadenopathy noted, no carotid bruits heard. LUNGS: Fair breath sounds bilaterally. CARDIOVASCULAR: S1, S2 normal. ABDOMEN: Soft, nontender. No organomegaly or masses noted. EXTREMITIES: No clubbing or cyanosis noted. NEUROLOGIC: No changes. LABORATORY DATA: WBC 11.6, hemoglobin 8.8, hematocrit 26.4, platelets 182. Sodium 134, potassium 3 .9, chloride 95, CO2 30, BUN 32, creatinine 2.10, glucose 96. IMPRESSION: 1. Status post non-ST elevation myocardial infarction, status post percutaneous coronary interventi on with stent placement. 2. History of coronary artery disease with coronary artery bypass graft in the past. 3. End-stage renal disease on hemodialysis. 4. Status post acute hypoxemic renal failure. 5. Hypertension. 6. Urinary tract infection. RECOMMENDATIONS: 1. Continue oxygen and taper as tolerated. 2. Hemodialysis and ultrafiltration as per nephrology. Dictated By: TANESHA DUNCAN MD, MA/DUTCH Conf#: [id number] DID#: [id number]
--- NOTE | 2016-03-07 15:01 | DS ---
Date/Time of Note Date/Time of Note DATE: 03/07/16 TIME: 14:56 Discharge Summary Admission/Discharge Info Admit Date/Time Mar 04, 2016 at 14:42 Discharge Date/Time Final Diagnosis 1. Non-ST elevated myocardial infarction. 2. History of coronary artery disease with coronary artery bypass graft. 3. Healthcare-acquired pneumonia. 4. Acute respiratory failure secondary to 5. Sepsis secondary to pneumonia. 6. End-stage renal disease on dialysis. 7. Accelerated hypertension. 8. MRSA UTI. Patient Condition: Stable Consults 1. Dr. Laith Rosa 2. Dr. Herberth Hameed 3. Dr. Alex Woods [facility] Course This is a 75-year-old female with history of essential hypertension, CAD, previous CABG, COPD, does edema, healthcare associated pneumonia, who came to [facility] due to reports of shortness of breath. According to the patient she had been having some shortness of breath for 2 weeks duration. She was previously had [facility] and received antibiotics for possible pneumonia. She was discharged from there on 2016. When she went on she progressively worse and then came to [facility] for further evaluation. Upon examination she did have chest x-ray that did show her to have some pulmonary edema with a suspected superimposed pneumonia. She was continue antibiotics. She also did have an elevated troponin as high as 2.7. She was seen by surveyor geodetic and she did undergo PCI. With stent placement. She was optimized on antiplatelet regimen. Should we also did get customer service agent to follow her for her history of end-stage renal disease and she was resumed on her dialysis. She was also noted with UTI for which she was placed on appropriate antibiotics. During the course of stay she did improve. She was otherwise optimized medically. As previous mentioned she was continued on antiplatelet therapy for her CAD and recent stent. Her respiratory status did improve with the help of bronchodilators and oxygen. She did respond well to antibiotic therapy for her pneumonia. She was continued on antihypertensives for her hypertension. After discussion with her surveyor geodetic we also did provide the patient with a LifeVest The plan of care was discussed with the patient patient did verbalize her understanding. On the day of discharge patient was in stable condition Discussed plan of care with Disposition: home Home Meds Active Scripts Sacubitril/Valsartan (Entresto 24 mg-26 mg Tablet) 1 Each Tablet, 1 EACH PO BID for 30 Days, TAB Prov:SUSANNE DIAZ 03/06/16 Nitrofurantoin Monohyd Macrocr* (Macrobid*) 100 Mg Capsr, 100 MG PO BID for 5 Days, CAP Prov:SUSANNE DIAZ 03/06/16 Mometasone Furoate (Asmanex) 220 Mcg Aer.pow.ba, 1 PUFF INH BID for 30 Days Prov:SUSANNE DIAZ 03/05/16 Montelukast Sodium* (Montelukast Sodium*) 10 Mg Tablet, 10 MG PO QHS for 30 Days , TAB Prov:SUSANNE DIAZ 03/05/16 Isosorbide Dinitrate* (Isordil*) 10 Mg Tablet, 5 MG PO TID for 30 Days, TAB Prov:SUSANNE DIAZ 03/05/16 Hydralazine Hcl* (Hydralazine Hcl*) 25 Mg Tab, 25 MG PO TID for 30 Days, TAB Prov:SUSANNE DIAZ 03/05/16 Furosemide (Lasix) 20 Mg Tab, 20 MG PO DAILY@06 for 30 Days, TAB Prov:SUSANNE DIAZ 03/05/16 Clopidogrel Bisulfate (Clopidogrel) 75 Mg Tablet, 75 MG PO DAILY for 30 Days, TAB Prov:SUSANNE DIAZ 03/05/16 Carvedilol* (Carvedilol*) 6.25 Mg Tablet, 6.25 MG PO BID for 30 Days, TAB Prov:SUSANNE DIAZ 03/05/16 Atorvastatin* (Atorvastatin*) 80 Mg Tablet, 80 MG PO DAILY@21 for 30 Days, TAB Prov:SUSANNE DIAZ 03/05/16 Aspirin* (Aspirin* EC) 81 Mg Tablet.dr, 81 MG PO DAILY for 30 Days Prov:SUSANNE DIAZ 03/05/16 Reported Medications Tiotropium [place] (Spiriva Respimat) 4 Gm Mist.inhal, 2 PUFF INHALATION DAILY for 90 Days, #12 INHALER 03/04/16 Pantoprazole* (Pantoprazole*) 40 Mg Tablet.dr, 40 MG PO DAILY for 90 Days, #90 TAB 03/04/16 Follow-up Plan CONDITION Patient Condition: Stable HOME CARE INSTRUCTIONS: Special Diet: low fat low cholesterol FOLLOW UP/APPOINTMENTS Appointments 1. Follow up with Dr. Alex Woods within one week 2. Follow up with your primary care provider in 1-2 weeks 3. Follow up with your dialysis center for your regularly scheduled dialysis OTHER ORDERS: Other Orders: 1. Call 911 if you have worsening chest pain/shortness of breath Pending Labs Laboratory Tests Test 03/07/16 10:35 Anion Gap 13 (8-16) Basophils # 0.010^3/ul (0.0-0.1) Basophils % 0.1% (0.0-2.0) Blood Morphology Comment Blood Urea Nitrogen 32mg/dl (7-20) Calcium Level 8.0mg/dl (8.4-10.2) Carbon Dioxide Level 30mmol/L (21-31) Chloride Level 95mmol/L (97-110) Creatinine 2.10mg/dl (0.44-1.00) Eosinophils # 0.310^3/ul (0.0-0.5) Eosinophils % 2.2% (0.0-7.0) Glucose Level 96mg/dl (70-220) Hematocrit 26.4% (37.0-47.0) Hemoglobin 8.8g/dl (12.0-16.0) Lymphocytes # 0.910^3/ul (0.8-2.9) Lymphocytes % 7.6% (15.0-51.0) Mean Corpuscular Hemoglobin 34.4pg (29.0-33.0) Mean Corpuscular Hemoglobin Concent 33.5g/dl (32.0-37.0) Mean Corpuscular Volume 102.6fl (82.0-101.0) Mean Platelet Volume 8.6fl (7.4-10.4) Monocytes # 0.510^3/ul (0.3-0.9) Monocytes % 4.7% (0.0-11.0) Neutrophils # 9.910^3/ul (1.6-7.5) Neutrophils % 85.4% (39.0-77.0) Nucleated Red Blood Cells # 0.010^3/ul (0.0-0.0) Nucleated Red Blood Cells % 0.0/100WBC (0.0-0.0) Platelet Count 33024^3/UL (140-440) Potassium Level 3.9mmol/L (3.5-5.1) Red Blood Count 2.5710^6/ul (4.20-5.40) Red Cell Distribution Width 15.3% (11.5-14.5) Sodium Level 134mmol/L (135-144) White Blood Count 11.610^3/ul (4.8-10.8) SUSANNE DIAZ Mar 07, 2016 15:00 Neutrophils # 9.910^3/ul (1.6-7.5) Neutrophils % 85.4% (39.0-77.0) Nucleated Red Blood Cells # 0.010^3/ul (0.0-0.0) Nucleated Red Blood Cells % 0.0/100WBC (0.0-0.0) Platelet Count 31840^3/UL (140-440) Potassium Level 3.9mmol/L (3.5-5.1) Red Blood Count 2.5710^6/ul (4.20-5.40) Red Cell Distribution Width 15.3% (11.5-14.5) Sodium Level 134mmol/L (135-144) White Blood Count 11.610^3/ul (4.8-10.8) SUSANNE DIAZ Mar 07, 2016 15:00
--- NOTE | 2016-03-07 15:48 | CONS ---
Date/Time of Note Date/Time of Note DATE: 03/07/16 TIME: 15:47 Consult Date/Type/Reason Admit Date/Time Mar 04, 2016 at 14:42 Initial Consult Date 03/04/16 Type of Consultation: card Objective Vital Signs Date Time Temp Pulse Resp B/P Pulse Ox O2 Delivery O2 Flow Rate FiO2 03/07/16 14:45 4.0 03/07/16 14:45 77 18 94 Nasal Cannula 03/07/16 12:14 98.4 134/60 03/04/16 12:05 50 Intake and Output 03/06/16 03/06/16 03/07/16 15:00 23:00 07:00 Intake Total 500 ml 740 ml 850 ml Output Total 2000 ml 900 ml 850 ml Balance -1500 ml -160 ml 0 ml Results/Medications Result Diagram: 03/07/16 1035 03/07/16 1035 Results 24 hrs Laboratory Tests Test 03/07/16 10:35 Anion Gap 13 Basophils # 0.0 Basophils % 0.1 Blood Morphology Comment Blood Urea Nitrogen 32 H Calcium Level 8.0 L Carbon Dioxide Level 30 Chloride Level 95 L Creatinine 2.10 H Eosinophils # 0.3 Eosinophils % 2.2 Glucose Level 96 Hematocrit 26.4 L Hemoglobin 8.8 L Lymphocytes # 0.9 Lymphocytes % 7.6 L Mean Corpuscular Hemoglobin 34.4 H Mean Corpuscular Hemoglobin Concent 33.5 Mean Corpuscular Volume 102.6 H Mean Platelet Volume 8.6 Monocytes # 0.5 Monocytes % 4.7 Neutrophils # 9.9 H Neutrophils % 85.4 H Nucleated Red Blood Cells # 0.0 Nucleated Red Blood Cells % 0.0 Platelet Count 182 Potassium Level 3.9 Red Blood Count 2.57 L Red Cell Distribution Width 15.3 H Sodium Level 134 L White Blood Count 11.6 H Medications Current Medications Ondansetron HCl (Zofran Inj) 4 mg Q6H PRN IV NAUSEA AND/OR VOMITING; Start 03/04 at 11:30 Nitroglycerin (Nitroglycerin (Sl Tab) 0.4 Mg) 1 tab Q5M PRN SL CHEST PAIN; Start 03/04/16 at 11:30 Acetaminophen (Tylenol Supp) 650 mg Q4H PRN [place] PAIN LEVEL 1-3 OR FEVER; Start 03/04/16 at 11:30 Morphine Sulfate (morphine) 2 mg Q4H PRN IV PAIN LEVEL 7-10; Start 03/04/16 at 11:30 Lorazepam (Ativan) 1 mg Q2H PRN IV ANXIETY; Start 03/04/16 at 11:30 Pantoprazole (Protonix Iv) 40 mg DAILY@06 IV Last administered on 03/07/16 06: 25; Admin Dose 40 MG; Start 03/05/16 at 06:00 Mometasone Furoate 1 puff 1 puff BID INH Last administered on 03/07/16 09:39; Admin Dose 1 PUFF; Start 03/04/16 at 21:00 Levofloxacin/ Dextrose (Levaquin 250 Mg/ D5W 50 ml (Pmx)) 50 ml @ 50 mls/hr Q48H IVPB Last administered on 03/06/16 12:42; Admin Dose 50 MLS/HR; Start 03/06 at 12:00 Aspirin (Halfprin) 81 mg DAILY PO Last administered on 03/07/16 09:37; Admin Dose 81 MG; Start 03/05/16 at 09:00 Furosemide (Lasix) 20 mg DAILY@06 PO Last administered on 03/07/16 06:28; Admin Dose 20 MG; Start 03/05/16 at 06:00 Montelukast Sodium (Singulair) 10 mg QHS PO Last administered on 03/06/16 20:52 ; Admin Dose 10 MG; Start 03/04/16 at 21:00 Atorvastatin Calcium (Lipitor) 80 mg DAILY@21 PO Last administered on 03/06/16 20:52; Admin Dose 80 MG; Start 03/04/16 at 21:00 Carvedilol (Coreg) 6.25 mg BID PO Last administered on 03/07/16 09:38; Admin Dose 6.25 MG; Start 03/04/16 at 21:00 Hydralazine HCl (Apresoline) 25 mg TID PO Last administered on 03/07/16 09:38 ; Admin Dose 25 MG; Start 03/04/16 at 21:00 Isosorbide Dinitrate (Isordil) 5 mg TID PO Last administered on 03/07/16 09:38 ; Admin Dose 5 MG; Start 03/04/16 at 21:00 Lisinopril (Zestril) 2.5 mg DAILY PO Last administered on 03/07/16 09:37; Admin Dose 2.5 MG; Start 03/05/16 at 09:00 Clopidogrel Bisulfate (plaVIX) 75 mg DAILY PO Last administered on 03/07/16 09 :37; Admin Dose 75 MG; Start 03/05/16 at 09:00 Acetaminophen (Tylenol Tab) 650 mg Q4H PRN PO PAIN AND OR ELEVATED TEMP Last administered on 03/06/16 08:54; Admin Dose 650 MG; Start 03/05/16 at 11:30 Loperamide HCl (Imodium Cap) 2 mg QID PRN PO loose stool Last administered on 10:11; Admin Dose 2 MG; Start 03/06/16 at 06:00 Assessment/Plan Chief Complaint/Hosp Course Patient is 75-year-old female with past medical history of coronary artery disease status post bypass surgery, severe peripheral vascular disease status post aortofemoral bypass, ESRD on hemodialysis, hypertension, dyslipidemia who presented to ER with a complaining of shortness of breath and pulmonary edema found to have elevated troponin with EKG changes was initially meetings [place] criteria on left bundle-branch block but patient was at that time tachycardic source STEMI was not called but H and was high risk non-ST elevation myocardial infarction with some EKG changes and troponin of 2.5 with significant coronary artery disease risk and history with the patient to urgently to cardiac Distributor Sales Consultant Problems: Additional Assessment/Plan Pt received her Lifevest On good meds HD today plan to d/c today or tomorrow. f/u out pt with me in a week. ARTURO REINOSO MD Mar 07, 2016 15:48
[2016-03-07] MEDS: EPOETIN 10000 UNITS/1 ML INJ (ESRD) SC SCH (21:23)
[2016-03-07] MEDS: ATORVASTATIN 80 MG TAB PO SCH (21:23)
[2016-03-07] MEDS: MONTELUKAST 10 MG TAB PO SCH (21:23)
[2016-03-08] VITALS (18 sets, daily range): BP systolic 105–143; BP diastolic 54–78; PULSE 51–77; RESP 18–22
[2016-03-08] MEDS: IPRATROPIUM (NEB) 0.5 MG/2.5 ML AMP NEB SCH ×4 (01:46→20:02)
[2016-03-08] MEDS: ALBUTEROL 0.5% (NEB) 2.5 MG/0.5 ML AMP NEB SCH ×3 (01:46→13:36)
[2016-03-08] MEDS: PANTOPRAZOLE (EC) 40 MG TAB PO SCH (06:03)
[2016-03-08] MEDS: FUROSEMIDE 20 MG TAB PO SCH (06:03)
[2016-03-08 08:30] LABS: BASOPHILS % 0.1 % (0.0-2.0); EOSINOPHILS # 0.4 10^3/ul (0.0-0.5); EOSINOPHILS % 3.6 % (0.0-7.0); HEMATOCRIT 27.5 % (37.0-47.0); HEMOGLOBIN 9.2 g/dl (12.0-16.0); LYMPHOCYTES # 0.9 10^3/ul (0.8-2.9); MEAN CORPUSCULAR HEMOGLOBIN 34.2 pg (29.0-33.0); MEAN CORPUSCULAR HGB CONC 33.4 g/dl (32.0-37.0); MEAN CORPUSCULAR VOLUME 102.2 fl (82.0-101.0); MEAN PLATELET VOLUME 7.9 fl (7.4-10.4); MONOCYTE # 0.6 10^3/ul (0.3-0.9); MONOCYTES % 4.8 % (0.0-11.0); NEUTROPHIL # 9.9 10^3/ul (1.6-7.5); NEUTROPHILS % 83.5 % (39.0-77.0); PLATELET COUNT 187 10^3/UL (140-440); RED BLOOD COUNT 2.69 10^6/ul (4.20-5.40); RED CELL DISTRIBUTION WIDTH 14.9 % (11.5-14.5); UNCORRECTED WBC 11.8 10^3/ul (4.8-10.8); WHITE BLOOD COUNT 11.8 10^3/ul (4.8-10.8)
[2016-03-08 08:38] LABS: POTASSIUM 4.1 mmol/L (3.5-5.1)
[2016-03-08 08:40] LABS: CREATININE 2.36 mg/dl (0.44-1.00)
[2016-03-08 08:41] LABS: CALCIUM 8.1 mg/dl (8.4-10.2)
[2016-03-08 08:42] LABS: CONDITION 1; LH ANALYZER COMMENTS 1
[2016-03-08] MEDS: CLOPIDOGREL 75 MG TAB PO SCH (09:51)
[2016-03-08] MEDS: ASPIRIN (EC) 81 MG TAB PO SCH (09:52)
--- NOTE | 2016-03-08 09:53 | PN ---
DATE: 03/08/2016 SUBJECTIVE: The patient is stable, no acute events overnight. The patient had hemodialysis yesterd ay, tolerated well with 1.5 L removed. OBJECTIVE: VITAL SIGNS: Blood pressure is 140/58, respirations 20, pulse 65, temperature 98.5. HEENT: Head is normocephalic. NECK: Supple. HEART: Regular rate. LUNGS: Show diminished breath sounds at the base. ABDOMEN: Soft, nontender to palpation. No rebound or guarding. EXTREMITIES: Negative for clubbing, cyanosis, no edema. DERMATOLOGIC: No rashes. MUSCULOSKELETAL: No joint effusions. NEUROLOGIC: No change in exam. MEDICATIONS: The patient's medications have been reviewed. LABORATORY DATA: Have been reviewed. No new labs. ASSESSMENT AND PLAN: 1. End-stage renal disease. The patient is on dialysis Sunday, , Sunday, last hemodialy sis was yesterday. Anticipate dialysis tomorrow. 2. Anemia of end-stage renal disease. Hemoglobin level stable. Continue Epogen. 3. Mineral bone disorder. Continue to monitor calcium and phosphorus levels. Continue phosphate b inders. 4. Hypertension, controlled. 5. Hyponatremia secondary to end-stage renal disease. Continue dialysis on a 140 sodium bath. 6. [id number] myocardial infarction. Continue medical management. 7. Healthcare-associated pneumonia. Continue current antibiotic regimen. 8. Acute respiratory failure secondary to pneumonia/chronic obstructive pulmonary disease, clinical ly improving. Continue current treatment plan. Dictated By: TOM CUNNINGHAM/DUTCH Conf#: [id number] DID#: [id number]
[2016-03-08] MEDS: ISOSORBIDE DINITRATE 10 MG TAB PO SCH ×3 (09:54→20:40)
[2016-03-08] MEDS: LISINOPRIL 5 MG TAB PO SCH (09:54)
[2016-03-08] MEDS: MOMETASONE 0.24 GM INHALER INH SCH ×2 (09:56→21:22)
--- NOTE | 2016-03-08 11:19 | PN ---
Date/Time of Note Date/Time of Note DATE: 03/08/16 TIME: 11:12 Assessment/Plan VTE Prophylaxis VTE Prophylaxis Intervention: heparin Lines/Catheters IV [facility]from [facility] [place] Urinary Cath still in place: No Assessment/Plan Chief Complaint/Hosp Course ASSESSMENT/PLAN: 1. Non-ST elevated myocardial infarction. The patient is status post percutaneous coronary intervention with stent placement. Continue on antiplatelet therapy. Continue on beta-angelica. 2. History of coronary artery disease with coronary artery bypass graft. continue antiplatelet therapy 3. Healthcare-acquired pneumonia. We will continue the patient on antibiotics. Will provide with bronchodilators as needed for shortness of breath. 4. Acute respiratory failure secondary to #3. Improved at present. Will put on bronchodilators, titrate down O2 as tolerated. Off BiPAP at this time. 5. Sepsis secondary to pneumonia. Appears to be improving at present. We will follow up on CBC. Continue current antibiotics. 6. End-stage renal disease on dialysis. Sap Bpc Developer is following. Continue on dialysis. Monitor for hyperkalemia. 7. Accelerated hypertension. We will continue on antihypertensives and adjust as needed. 8. MRSA UTI. will get ID consultation Disposition and plan: Will get ID consult for mrsa uti. will check cxr for dyspnea Discussed plan of care with Dr. Kingsley Problems: Subjective 24 Hr Interval Summary Free Text/Dictation reports having some shortness of breath. Exam/Review of Systems Vital Signs Vitals Vital Signs Date Time Temp Pulse Resp B/P Pulse Ox O2 Delivery O2 Flow Rate FiO2 03/08/16 08:45 82 22 92 Nasal Cannula 4.0 03/08/16 07:42 98.5 140/58 03/04/16 12:05 50 Intake and Output 03/07/16 03/07/16 03/08/16 15:00 23:00 07:00 Intake Total 1200 ml 850 ml Output Total 2000 ml 750 ml Balance -800 ml 100 ml Exam General: No acute signs or symptoms of distress Eyes: pupils equal round, Anicteric sclera Neck: Supple nontender, no JVD Cardiac: S1, S2 auscultated, regular rhythm and rate Pulmonary: wheezing auscultate upper lung airways GI: Abdomen soft nontender nondistended, bowel sounds active Extremities: No edema bilateral lower extremities Skin: dialysis access right upper chest Neurologic: Alert to person place and time and situation Results Result Diagram: 03/08/16 0812 03/08/16 0812 Results 24 hrs Laboratory Tests Test 03/08/16 08:12 Anion Gap 12 Basophils # 0.0 Basophils % 0.1 Blood Morphology Comment Blood Urea Nitrogen 32 H Calcium Level 8.1 L Carbon Dioxide Level 30 Chloride Level 96 L Creatinine 2.36 H Eosinophils # 0.4 Eosinophils % 3.6 Glucose Level 68 #L Hematocrit 27.5 L Hemoglobin 9.2 L Lymphocytes # 0.9 Lymphocytes % 8.0 L Mean Corpuscular Hemoglobin 34.2 H Mean Corpuscular Hemoglobin Concent 33.4 Mean Corpuscular Volume 102.2 H Mean Platelet Volume 7.9 Monocytes # 0.6 Monocytes % 4.8 Neutrophils # 9.9 H Neutrophils % 83.5 H Nucleated Red Blood Cells # 0.0 Nucleated Red Blood Cells % 0.0 Platelet Count 187 Potassium Level 4.1 Red Blood Count 2.69 L Red Cell Distribution Width 14.9 H Sodium Level 134 L White Blood Count 11.8 H Medications Medications Current Medications Ondansetron HCl (Zofran Inj) 4 mg Q6H PRN IV NAUSEA AND/OR VOMITING; Start 03/04 at 11:30 Nitroglycerin (Nitroglycerin (Sl Tab) 0.4 Mg) 1 tab Q5M PRN SL CHEST PAIN; Start 03/04/16 at 11:30 Acetaminophen (Tylenol Supp) 650 mg Q4H PRN [place] PAIN LEVEL 1-3 OR FEVER; Start 03/04/16 at 11:30 Morphine Sulfate (morphine) 2 mg Q4H PRN IV PAIN LEVEL 7-10; Start 03/04/16 at 11:30 Lorazepam (Ativan) 1 mg Q2H PRN IV ANXIETY; Start 03/04/16 at 11:30 Mometasone Furoate 1 puff 1 puff BID INH Last administered on 03/08/16 09:56; Admin Dose 1 PUFF; Start 03/04/16 at 21:00 Levofloxacin/ Dextrose (Levaquin 250 Mg/ D5W 50 ml (Pmx)) 50 ml @ 50 mls/hr Q48H IVPB Last administered on 03/06/16 12:42; Admin Dose 50 MLS/HR; Start 03/06 at 12:00 Aspirin (Halfprin) 81 mg DAILY PO Last administered on 03/08/16 09:52; Admin Dose 81 MG; Start 03/05/16 at 09:00 Furosemide (Lasix) 20 mg DAILY@06 PO Last administered on 03/08/16 06:03; Admin Dose 20 MG; Start 03/05/16 at 06:00 Montelukast Sodium (Singulair) 10 mg QHS PO Last administered on 03/07/16 21: 23; Admin Dose 10 MG; Start 03/04/16 at 21:00 Atorvastatin Calcium (Lipitor) 80 mg DAILY@21 PO Last administered on 21:23; Admin Dose 80 MG; Start 03/04/16 at 21:00 Carvedilol (Coreg) 6.25 mg BID PO Last administered on 03/08/16 09:52; Admin Dose 6.25 MG; Start 03/04/16 at 21:00 Hydralazine HCl (Apresoline) 25 mg TID PO Last administered on 03/08/16 09:51 ; Admin Dose 25 MG; Start 03/04/16 at 21:00 Isosorbide Dinitrate (Isordil) 5 mg TID PO Last administered on 03/08/16 09:54 ; Admin Dose 5 MG; Start 03/04/16 at 21:00 Lisinopril (Zestril) 2.5 mg DAILY PO Last administered on 03/08/16 09:54; Admin Dose 2.5 MG; Start 03/05/16 at 09:00 Clopidogrel Bisulfate (plaVIX) 75 mg DAILY PO Last administered on 03/08/16 09 :51; Admin Dose 75 MG; Start 03/05/16 at 09:00 Acetaminophen (Tylenol Tab) 650 mg Q4H PRN PO PAIN AND OR ELEVATED TEMP Last administered on 03/06/16 08:54; Admin Dose 650 MG; Start 03/05/16 at 11:30 Loperamide HCl (Imodium Cap) 2 mg QID PRN PO loose stool Last administered on 18:17; Admin Dose 2 MG; Start 03/06/16 at 06:00 Pantoprazole (Protonix Tab) 40 mg DAILY@06 PO Last administered on 03/08/16 06 :03; Admin Dose 40 MG; Start 03/08/16 at 06:00 SUSANNE DIAZ Mar 08, 2016 11:19
--- NOTE | 2016-03-08 12:14 | RADRPT ---
PROCEDURE: XR Chest. CLINICAL INDICATION: Dyspnea TECHNIQUE: Single portable view of the chest was obtained COMPARISON: Chest 03/04/2016. FINDINGS: No significant interval change. Again noticed a 90 sutures and a right central venous catheter unch anged. Negative for pneumothorax. Heart is borderline enlarged. Again noted is bilateral perihila r and lower lobe interstitial infiltrates. Patchy density at the lung bases. These findings may re present edema and/or inflammatory infiltrates. Minimal blunting of the costophrenic angles. IMPRESSION: 1. No significant change. 2. Findings suggestive of pulmonary edema and/or inflammatory infiltrates worse at the bases partic ularly left base. RPTAT:AAJJ Physician Anushka Date Time Electronically viewed and signed by Physician Anushka on 03/08/2016 12:13 /
[2016-03-08] MEDS: LEVOFLOXACIN 250MG/D5W (PMX) 50 ML IVPB SCH (12:35)
[2016-03-08] MEDS: LOPERAMIDE 2 MG CAP PO PRN ×2 (12:35→20:41)
--- NOTE | 2016-03-08 15:06 | CONS ---
Date/Time of Note Date/Time of Note DATE: 03/08/16 TIME: 15:04 Consult Date/Type/Reason Admit Date/Time Mar 04, 2016 at 14:42 Initial Consult Date 03/04/16 Type of Consultation: pulmonary Subjective Still has shortness of breath Patient states she is more short of breath and yesterday Dry nonproductive cough No fever no chills Objective Vital Signs Date Time Temp Pulse Resp B/P Pulse Ox O2 Delivery O2 Flow Rate FiO2 03/08/16 13:36 76 22 Nasal Cannula 4.0 36 03/08/16 11:21 98.4 124/58 94 Intake and Output 03/07/16 03/07/16 03/08/16 15:00 23:00 07:00 Intake Total 1200 ml 850 ml Output Total 2000 ml 750 ml Balance -800 ml 100 ml PHYSICAL EXAMINATION: VITAL SIGNS: As above HEENT: Pupils are equal and reactive to light. NECK: Supple, no JVD noted, no cervical lymphadenopathy noted, no carotid bruits heard. LUNGS: Fair breath sounds bilaterally. Bilateral rales CARDIOVASCULAR: S1, S2 normal. ABDOMEN: Soft, nontender. No organomegaly or masses noted. EXTREMITIES: No clubbing or cyanosis noted. NEUROLOGIC: No changes. Results/Medications Result Diagram: 03/08/16 0812 03/08/16 0812 Results 24 hrs Laboratory Tests Test 03/08/16 08:12 Anion Gap 12 Basophils # 0.0 Basophils % 0.1 Blood Morphology Comment Blood Urea Nitrogen 32 H Calcium Level 8.1 L Carbon Dioxide Level 30 Chloride Level 96 L Creatinine 2.36 H Eosinophils # 0.4 Eosinophils % 3.6 Glucose Level 68 #L Hematocrit 27.5 L Hemoglobin 9.2 L Lymphocytes # 0.9 Lymphocytes % 8.0 L Mean Corpuscular Hemoglobin 34.2 H Mean Corpuscular Hemoglobin Concent 33.4 Mean Corpuscular Volume 102.2 H Mean Platelet Volume 7.9 Monocytes # 0.6 Monocytes % 4.8 Neutrophils # 9.9 H Neutrophils % 83.5 H Nucleated Red Blood Cells # 0.0 Nucleated Red Blood Cells % 0.0 Platelet Count 187 Potassium Level 4.1 Red Blood Count 2.69 L Red Cell Distribution Width 14.9 H Sodium Level 134 L White Blood Count 11.8 H Medications Current Medications Ondansetron HCl (Zofran Inj) 4 mg Q6H PRN IV NAUSEA AND/OR VOMITING; Start 03/04 at 11:30 Nitroglycerin (Nitroglycerin (Sl Tab) 0.4 Mg) 1 tab Q5M PRN SL CHEST PAIN; Start 03/04/16 at 11:30 Acetaminophen (Tylenol Supp) 650 mg Q4H PRN [place] PAIN LEVEL 1-3 OR FEVER; Start 03/04/16 at 11:30 Morphine Sulfate (morphine) 2 mg Q4H PRN IV PAIN LEVEL 7-10; Start 03/04/16 at 11:30 Lorazepam (Ativan) 1 mg Q2H PRN IV ANXIETY; Start 03/04/16 at 11:30 Mometasone Furoate 1 puff 1 puff BID INH Last administered on 03/08/16 09:56; Admin Dose 1 PUFF; Start 03/04/16 at 21:00 Levofloxacin/ Dextrose (Levaquin 250 Mg/ D5W 50 ml (Pmx)) 50 ml @ 50 mls/hr Q48H IVPB Last administered on 03/08/16 12:35; Admin Dose 50 MLS/HR; Start 03/06/16 at 12:00 Aspirin (Halfprin) 81 mg DAILY PO Last administered on 03/08/16 09:52; Admin Dose 81 MG; Start 03/05/16 at 09:00 Furosemide (Lasix) 20 mg DAILY@06 PO Last administered on 03/08/16 06:03; Admin Dose 20 MG; Start 03/05/16 at 06:00 Montelukast Sodium (Singulair) 10 mg QHS PO Last administered on 03/07/16 21: 23; Admin Dose 10 MG; Start 03/04/16 at 21:00 Atorvastatin Calcium (Lipitor) 80 mg DAILY@21 PO Last administered on 21:23; Admin Dose 80 MG; Start 03/04/16 at 21:00 Carvedilol (Coreg) 6.25 mg BID PO Last administered on 03/08/16 09:52; Admin Dose 6.25 MG; Start 03/04/16 at 21:00 Hydralazine HCl (Apresoline) 25 mg TID PO Last administered on 03/08/16 14:56 ; Admin Dose 25 MG; Start 03/04/16 at 21:00 Isosorbide Dinitrate (Isordil) 5 mg TID PO Last administered on 03/08/16 14:55 ; Admin Dose 5 MG; Start 03/04/16 at 21:00 Lisinopril (Zestril) 2.5 mg DAILY PO Last administered on 03/08/16 09:54; Admin Dose 2.5 MG; Start 03/05/16 at 09:00 Clopidogrel Bisulfate (plaVIX) 75 mg DAILY PO Last administered on 03/08/16 09 :51; Admin Dose 75 MG; Start 03/05/16 at 09:00 Acetaminophen (Tylenol Tab) 650 mg Q4H PRN PO PAIN AND OR ELEVATED TEMP Last administered on 03/06/16 08:54; Admin Dose 650 MG; Start 03/05/16 at 11:30 Loperamide HCl (Imodium Cap) 2 mg QID PRN PO loose stool Last administered on 12:35; Admin Dose 2 MG; Start 03/06/16 at 06:00 Pantoprazole (Protonix Tab) 40 mg DAILY@06 PO Last administered on 03/08/16 06 :03; Admin Dose 40 MG; Start 03/08/16 at 06:00 Heparin Sodium (Porcine) (Heparin (5000 Units/0.5 ml)) 5,000 unit BID SC ; Start 03/08/16 at 21:00 Assessment/Plan Chief Complaint/Hosp Course IMPRESSION: 1. Status post non-ST elevation myocardial infarction, status post percutaneous coronary intervention with stent placement. 2. History of coronary artery disease with coronary artery bypass graft in the past. 3. End-stage renal disease on hemodialysis. 4. Status post acute hypoxemic renal failure. Pulmonary edema with volume overload 5. Hypertension. 6. Urinary tract infection. RECOMMENDATIONS: 1. Continue oxygen and taper as tolerated. 2. Hemodialysis and ultrafiltration as per nephrology. Needs more volume removal during hemodialysis Problems: RAFIA WRIGHT MD, [facility] Mar 08, 2016 15:06
[2016-03-08] MEDS ORDERED: VANCOMYCIN IV PER PHARMACY XX SCH (15:30)
[2016-03-08] MEDS ORDERED: GENTAMICIN IV PER PHARMACY XX SCH (15:30)
[2016-03-08] MEDS ORDERED: VANCOMYCIN 1 GM in NS 250 ML IVPB SCH (16:00)
[2016-03-08] MEDS ORDERED: GENTAMICIN 100 MG in SOD CHLORIDE 0.9% 50 ML IVPB SCH (17:30)
--- NOTE | 2016-03-08 17:41 | CONS ---
DATE OF ADMISSION: 03/04/2016 DATE OF CONSULTATION: 03/08/2016 TYPE OF CONSULTATION: Infectious Disease. REASON FOR CONSULTATION: Antibiotic management. HISTORY OF PRESENT ILLNESS: Judi Chadwick is a 75-year-old white female with a number of problems w ho is admitted with shortness of breath and is being seen for antibiotic management. Her past probl ems include: 1. Essential hypertension. 2. Coronary artery disease. 3. Status post coronary artery bypass grafting. 4. Chronic obstructive pulmonary disease. 5. Dyslipidemia. 6. End-stage renal disease on hemodialysis. 7. Recent healthcare-associated pneumonia. The patient was brought to the emergency room at [facility] with shortness of breath of 2 w eeks' duration. She was previously hospitalized at [facility] and received IV antibiotic s for this and was discharged on 02/28/2016. She developed progressive shortness of breath. In e emergency room on 03/04/2016, she has some pulmonary edema and suspected superimposed pneumonia in the mid and lower lung zones. She also had blood work done which showed leukocytosis and a tempera ture of 102.7. Her troponins were also elevated at 2.7. Cardiology was consulted and she underwent a PCI with stent placed to the left main artery. The patient tolerated the procedure well. On adm ission, her white count was 16.7, H and H of 11.9 and 36, platelet count 267,000. BUN and creatinin e 65/2.28. Troponin was 2.7 as noted. A chest x-ray showed pulmonary edema, superimposed pneumonia . The patient was placed on IV antibiotic therapy and she is currently on Levaquin. Chest x-ray to day shows pulmonary edema and/or inflammatory infiltrates, worse at the base, particularly the left base. Her white count has come down to 11.8, H and H 9.2 and 27.5, platelet count 187,000. BUN and creatinine is 32/2.36. Urine is positive for 2+ leukocyte esterase, greater than 200 white cells p er high powered field. MICROBIOLOGY: Her urine is growing Enterococcus and Evi albicans and methicillin-resistant Stap hylococcus aureus from the 7th. The patient was seen in consultation by Dr. Limon for her hemodia lysis and end-stage renal disease. IMPRESSION AND PLAN: Sepsis secondary to pneumonia, appears to be improving somewhat according to nurse practitionerNikita. Methicillin-resistant Staphylococcus aureus urinary tract infection. We will get infectious disease consult for methicillin-resistant Staphylococcus aureus. Will check a chest x-ray for dyspnea. PAST MEDICAL OPERATIONS: As outlined. FAMILY HISTORY: Noncontributory. SOCIAL HISTORY: She does not smoke. She has a [id number] history of smoking. She quit 20 years ago. She does not drink or abuse drugs. ALLERGIES: IODINE AND AMBIEN. MEDICATIONS: Per chart. REVIEW OF SYSTEMS: Noncontributory. PHYSICAL EXAMINATION: GENERAL: The patient is an elderly appearing female who was status post heart catheterization in no acute distress. VITAL SIGNS: Stable. She is afebrile. SKIN: Without generalized rash. HEENT: Within normal limits. NECK: Supple. LYMPH NODES: None palpable. CHEST: Decreased breath sounds at the bases. HEART: Without murmur or gallop. ABDOMEN: Soft, nontender without organosplenomegaly or masses. EXTREMITIES: Without cyanosis or clubbing. She has no edema. RECTAL AND GENITAL: Deferred. NEUROLOGIC: No focal neurological abnormalities. IMPRESSION AND PLAN: We should place the patient on vancomycin and gentamicin. We can give her kesha e Oral fluconazole for the Evi albicans this will take care of her methicillin-resistant Staphyl ococcus enterococcus and also her pneumonitis. I am not going to treat with vancomycin-resistant en terococcus in her stool. I will dictate my findings to the hospitalist and to Dr. Limon and to Dr Cesar Shen. Dictated By: PAGE TATE MD, JD/DUTCH Conf#: [id number] DID#: [id number]
[2016-03-08] MEDS: LEVALBUTEROL (NEB) 1.25 MG/0.5 ML AMP HHN SCH (20:01)
[2016-03-08] MEDS: ACETAMINOPHEN 325 MG TAB PO PRN (20:40)
[2016-03-08] MEDS: ATORVASTATIN 80 MG TAB PO SCH (20:40)
[2016-03-08] MEDS: MONTELUKAST 10 MG TAB PO SCH (20:40)
[2016-03-08] MEDS: HEPARIN 5,000 UNIT/0.5 ML SYG SC SCH (21:18)
[2016-03-09] VITALS (20 sets, daily range): BP systolic 100–141; BP diastolic 44–79; PULSE 57–82; RESP 18–22
[2016-03-09] MEDS: LEVALBUTEROL (NEB) 1.25 MG/0.5 ML AMP HHN SCH ×4 (02:16→20:14)
[2016-03-09] MEDS: IPRATROPIUM (NEB) 0.5 MG/2.5 ML AMP NEB SCH ×4 (02:16→20:14)
[2016-03-09] MEDS: PANTOPRAZOLE (EC) 40 MG TAB PO SCH (05:36)
[2016-03-09] MEDS: FUROSEMIDE 20 MG TAB PO SCH (05:36)
[2016-03-09] MEDS: MOMETASONE 0.24 GM INHALER INH SCH ×2 (08:14→21:16)
[2016-03-09] MEDS: ASPIRIN (EC) 81 MG TAB PO SCH (08:15)
[2016-03-09] MEDS: CLOPIDOGREL 75 MG TAB PO SCH (08:15)
[2016-03-09] MEDS: FLUCONAZOLE 100 MG TAB PO SCH (08:15)
[2016-03-09] MEDS: ISOSORBIDE DINITRATE 10 MG TAB PO SCH ×3 (08:15→21:19)
[2016-03-09] MEDS: LISINOPRIL 5 MG TAB PO SCH (08:16)
[2016-03-09] MEDS: HEPARIN 5,000 UNIT/0.5 ML SYG SC SCH ×2 (08:25→21:20)
[2016-03-09] MEDS ORDERED: GENTAMICIN 60 MG in SOD CHLORIDE 0.9% 50 ML IVPB SCH (09:00)
--- NOTE | 2016-03-09 09:36 | PN ---
Date/Time of Note Date/Time of Note DATE: 03/09/16 TIME: 09:32 Assessment/Plan VTE Prophylaxis VTE Prophylaxis Intervention: heparin Lines/Catheters IV Catheter Type (from [facility]): [place] Urinary Cath still in place: No Assessment/Plan Chief Complaint/Hosp Course ASSESSMENT/PLAN: 1. Non-ST elevated myocardial infarction. The patient is status post percutaneous coronary intervention with stent placement. - Continue on antiplatelet therapy. - - Continue on beta-angelica. 2. History of coronary artery disease with coronary artery bypass graft. -continue antiplatelet therapy 3. Healthcare-acquired pneumonia -. We will continue the patient on antibiotics. Will provide with bronchodilators as needed for shortness of breath. 4. Acute respiratory failure secondary to #3. Improved at present. - bronchodilators, titrate down O2 as tolerated. Off BiPAP at this time. 5. Sepsis secondary to UTI and possibly pneumonia. Appears to be improving at present. - We will follow up on CBC. - Continue current antibiotics. 6. End-stage renal disease on dialysis. Logistics Program Manager is following. - Continue on dialysis. - Monitor for hyperkalemia. 7. Accelerated hypertension. We will continue on antihypertensives and adjust as needed. 8. MRSA UTI - appreciate ID consultation, + for MRSA, Evi, enterococcus - now on Vanco + Gent and Fluconazole - f/u ID rec's a Problems: Subjective 24 Hr Interval Summary Free Text/Dictation Pt getting HD presently. Exam/Review of Systems Vital Signs Vitals Vital Signs Date Time Temp Pulse Resp B/P Pulse Ox O2 Delivery O2 Flow Rate FiO2 03/09/16 09:00 66 03/09/16 08:35 20 95 Nasal Cannula 4.0 03/09/16 07:32 98.0 140/59 03/08/16 18:09 36 Intake and Output 03/08/16 03/08/16 03/09/16 15:00 23:00 07:00 Intake Total 900 ml 300 ml Output Total 3750 ml Balance -2850 ml 300 ml Exam General: No acute signs or symptoms of distress Eyes: pupils equal round, Anicteric sclera Neck: Supple nontender, no JVD Cardiac: S1, S2 auscultated, regular rhythm and rate Pulmonary: wheezing auscultate upper lung airways GI: Abdomen soft nontender nondistended, bowel sounds active Extremities: No edema bilateral lower extremities Skin: dialysis access right upper chest Neurologic: Alert to person place and time and situation Results Result Diagram: 03/08/1681103/08/16811 Medications Medications Current Medications Ondansetron HCl (Zofran Inj) 4 mg Q6H PRN IV NAUSEA AND/OR VOMITING; Start 03/04 at 11:30 Nitroglycerin (Nitroglycerin (Sl Tab) 0.4 Mg) 1 tab Q5M PRN SL CHEST PAIN; Start 03/04/16 at 11:30 Acetaminophen (Tylenol Supp) 650 mg Q4H PRN AK PAIN LEVEL 1-3 OR FEVER; Start 03/04/16 at 11:30 Morphine Sulfate (morphine) 2 mg Q4H PRN IV PAIN LEVEL 7-10; Start 03/04/16 at 11:30 Lorazepam (Ativan) 1 mg Q2H PRN IV ANXIETY; Start 03/04/16 at 11:30 Mometasone Furoate (Asmanex) 1 puff BID INH Last administered on 03/09/16 08: 14; Admin Dose 1 PUFF; Start 03/04/16 at 21:00 Aspirin (Halfprin) 81 mg DAILY PO Last administered on 03/09/16 08:15; Admin Dose 81 MG; Start 03/05/16 at 09:00 Furosemide (Lasix) 20 mg DAILY@06 PO Last administered on 03/09/16 05:36; Admin Dose 20 MG; Start 03/05/16 at 06:00 Montelukast Sodium (Singulair) 10 mg QHS PO Last administered on 03/08/16 20: 40; Admin Dose 10 MG; Start 03/04/16 at 21:00 Atorvastatin Calcium (Lipitor) 80 mg DAILY@21 PO Last administered on 20:40; Admin Dose 80 MG; Start 03/04/16 at 21:00 Carvedilol (Coreg) 6.25 mg BID PO Last administered on 03/08/16 20:40; Admin Dose 6.25 MG; Start 03/04/16 at 21:00 Hydralazine HCl (Apresoline) 25 mg TID PO Last administered on 03/08/16 20:39 ; Admin Dose 25 MG; Start 03/04/16 at 21:00 Isosorbide Dinitrate (Isordil) 5 mg TID PO Last administered on 03/08/16 20:40 ; Admin Dose 5 MG; Start 03/04/16 at 21:00 Lisinopril (Zestril) 2.5 mg DAILY PO Last administered on 03/08/16 09:54; Admin Dose 2.5 MG; Start 03/05/16 at 09:00 Clopidogrel Bisulfate (plaVIX) 75 mg DAILY PO Last administered on 03/09/16 08 :15; Admin Dose 75 MG; Start 03/05/16 at 09:00 Acetaminophen (Tylenol Tab) 650 mg Q4H PRN PO PAIN AND OR ELEVATED TEMP Last administered on 03/08/16 20:40; Admin Dose 650 MG; Start 03/05/16 at 11:30 Loperamide HCl (Imodium Cap) 2 mg QID PRN PO loose stool Last administered on 20:41; Admin Dose 2 MG; Start 03/06/16 at 06:00 Pantoprazole (Protonix Tab) 40 mg DAILY@06 PO Last administered on 03/09/16 05 :36; Admin Dose 40 MG; Start 03/08/16 at 06:00 Heparin Sodium (Porcine) (Heparin (5000 Units/0.5 ml)) 5,000 unit BID SC Last administered on 03/09/16 08:25; Admin Dose 5,000 UNIT; Start 03/08/16 at 21:00 Gentamicin Sulfate (Gentamicin Iv Per Pharmacy) GENTAMICIN PER PHARMACY NOTE XX ; Start 03/08/16 at 15:30 Fluconazole (Diflucan) 100 mg DAILY PO Last administered on 03/09/16 08:15; Admin Dose 100 MG; Start 03/09/16 at 09:00 NILSON KURTZ Mar 09, 2016 09:36
[2016-03-09 09:51] LABS: BASOPHILS % 0.2 % (0.0-2.0); EOSINOPHILS # 0.3 10^3/ul (0.0-0.5); HEMATOCRIT 34.5 % (37.0-47.0); HEMOGLOBIN 11.4 g/dl (12.0-16.0); LYMPHOCYTES # 0.9 10^3/ul (0.8-2.9); LYMPHOCYTES % 6.4 % (15.0-51.0); MEAN CORPUSCULAR HEMOGLOBIN 34.1 pg (29.0-33.0); MEAN CORPUSCULAR HGB CONC 33.1 g/dl (32.0-37.0); MEAN PLATELET VOLUME 8.5 fl (7.4-10.4); MONOCYTE # 0.4 10^3/ul (0.3-0.9); MONOCYTES % 2.5 % (0.0-11.0); NEUTROPHIL # 12.9 10^3/ul (1.6-7.5); NEUTROPHILS % 88.9 % (39.0-77.0); PLATELET COUNT 236 10^3/UL (140-440); RED BLOOD COUNT 3.35 10^6/ul (4.20-5.40); RED CELL DISTRIBUTION WIDTH 15.1 % (11.5-14.5); UNCORRECTED WBC 14.6 10^3/ul (4.8-10.8); WHITE BLOOD COUNT 14.6 10^3/ul (4.8-10.8)
[2016-03-09 09:56] LABS: CONDITION 1; LH ANALYZER COMMENTS 1; SUSPECT 1
[2016-03-09 09:57] LABS: POTASSIUM 3.4 mmol/L (3.5-5.1)
[2016-03-09 10:00] LABS: CREATININE 1.14 mg/dl (0.44-1.00)
[2016-03-09 10:01] LABS: CALCIUM 9.2 mg/dl (8.4-10.2)
--- NOTE | 2016-03-09 10:38 | PN ---
DATE: 03/09/2016 SUBJECTIVE: The patient had hemodialysis yesterday for volume removal. She is currently receiving hemodialysis. The patient is complaining tachypnea. No other events noted. OBJECTIVE: VITAL SIGNS: Blood pressure is 140/59, respiration 18, pulse 60, temperature 98.0. HEENT: Head is normocephalic. NECK: Supple. HEART: Regular rate. LUNGS: Show diminished breath sounds at the base. ABDOMEN: Soft, nontender to palpation. No rebound or guarding. EXTREMITIES: Negative for clubbing, cyanosis, no edema. DERMATOLOGIC: No rashes. MUSCULOSKELETAL: No joint effusions. NEUROLOGIC: No change in exam. MEDICATIONS: The patient's medications have been reviewed. LABORATORY DATA: Shows sodium 134, potassium 4.1, chloride 96, BUN 32, creatinine 2.36. White coun t 11.8, hemoglobin 9.2, hematocrit 27.5, platelet count is 187. ASSESSMENT AND PLAN: 1. End-stage renal disease. The patient has been receiving daily dialysis for volume removal and s olute clearance. The patient is currently on hemodialysis. Anticipate 2 to 3 liters of volume remov al. 2. Volume overload. The patient's chest x-ray continues to show pulmonary congestion. Continue ult rafiltration dialysis. 3. Anemia. Continue to monitor hemoglobin and hematocrit levels. Continue Epogen. 4. Mineral bone disorder. Continue to monitor calcium and phosphorus levels. Continue phosphate bi nders. 5. Acute respiratory failure secondary to healthcare-associated pneumonia, chronic obstructive pulm onary disease, congestive heart failure. Continue current medical management. Continue ultrafiltrat ion dialysis. 6. Hyponatremia secondary to end-stage renal disease. Continue dialysis with 140 sodium bath. 7. Non-ST elevation myocardial infarction. Continue medical management. 8. Hypertension, controlled. Continue current blood pressure regimen. Dictated By: TOM CUNNINGHAM/DUTCH Conf#: [id number] DID#: [id number]
--- NOTE | 2016-03-09 11:33 | CONS ---
Date/Time of Note Date/Time of Note DATE: 03/09/16 TIME: 11:32 Consult Date/Type/Reason Admit Date/Time Mar 04, 2016 at 14:42 Initial Consult Date 03/04/16 Type of Consultation: pulmonary Subjective Still significant shortness of breath after hemodialysis Requiring facemask oxygen Objective Vital Signs Date Time Temp Pulse Resp B/P Pulse Ox O2 Delivery O2 Flow Rate FiO2 03/09/16 10:59 97.9 65 22 130/53 97 03/09/16 10:04 50 03/09/16 08:35 Nasal Cannula 4.0 Intake and Output 03/08/16 03/08/16 03/09/16 15:00 23:00 07:00 Intake Total 900 ml 300 ml Output Total 3750 ml Balance -2850 ml 300 ml PHYSICAL EXAMINATION: VITAL SIGNS: As above HEENT: Pupils are equal and reactive to light. NECK: Supple, no JVD noted, no cervical lymphadenopathy noted, no carotid bruits heard. LUNGS: Fair breath sounds bilaterally. Bilateral rales CARDIOVASCULAR: S1, S2 normal. ABDOMEN: Soft, nontender. No organomegaly or masses noted. EXTREMITIES: No clubbing or cyanosis noted. NEUROLOGIC: No changes. Results/Medications Result Diagram: 03/09/1615 03/09/1615 Results 24 hrs Laboratory Tests Test 03/09/16 09:15 Anion Gap 17 H Basophils # 0.0 Basophils % 0.2 Blood Morphology Comment Blood Urea Nitrogen 14 # Calcium Level 9.2 Carbon Dioxide Level 31 Chloride Level 96 L Creatinine 1.14 #H Eosinophils # 0.3 Eosinophils % 2.0 Glucose Level 127 # Hematocrit 34.5 #L Hemoglobin 11.4 #L Lymphocytes # 0.9 Lymphocytes % 6.4 L Mean Corpuscular Hemoglobin 34.1 H Mean Corpuscular Hemoglobin Concent 33.1 Mean Corpuscular Volume 103.0 H Mean Platelet Volume 8.5 Monocytes # 0.4 Monocytes % 2.5 Neutrophils # 12.9 H Neutrophils % 88.9 H Nucleated Red Blood Cells # 0.0 Nucleated Red Blood Cells % 0.0 Platelet Count 236 # Potassium Level 3.4 L Red Blood Count 3.35 #L Red Cell Distribution Width 15.1 H Sodium Level 141 White Blood Count 14.6 #H Medications Current Medications Ondansetron HCl (Zofran Inj) 4 mg Q6H PRN IV NAUSEA AND/OR VOMITING; Start 03/04 at 11:30 Nitroglycerin (Nitroglycerin (Sl Tab) 0.4 Mg) 1 tab Q5M PRN SL CHEST PAIN; Start 03/04/16 at 11:30 Acetaminophen (Tylenol Supp) 650 mg Q4H PRN [place] PAIN LEVEL 1-3 OR FEVER; Start 03/04/16 at 11:30 Morphine Sulfate (morphine) 2 mg Q4H PRN IV PAIN LEVEL 7-10; Start 03/04/16 at 11:30 Lorazepam (Ativan) 1 mg Q2H PRN IV ANXIETY; Start 03/04/16 at 11:30 Mometasone Furoate (Asmanex) 1 puff BID INH Last administered on 03/09/16 08: 14; Admin Dose 1 PUFF; Start 03/04/16 at 21:00 Aspirin (Halfprin) 81 mg DAILY PO Last administered on 03/09/16 08:15; Admin Dose 81 MG; Start 03/05/16 at 09:00 Furosemide (Lasix) 20 mg DAILY@06 PO Last administered on 03/09/16 05:36; Admin Dose 20 MG; Start 03/05/16 at 06:00 Montelukast Sodium (Singulair) 10 mg QHS PO Last administered on 03/08/16 20: 40; Admin Dose 10 MG; Start 03/04/16 at 21:00 Atorvastatin Calcium (Lipitor) 80 mg DAILY@21 PO Last administered on 20:40; Admin Dose 80 MG; Start 03/04/16 at 21:00 Carvedilol (Coreg) 6.25 mg BID PO Last administered on 03/08/16 20:40; Admin Dose 6.25 MG; Start 03/04/16 at 21:00 Hydralazine HCl (Apresoline) 25 mg TID PO Last administered on 03/08/16 20:39 ; Admin Dose 25 MG; Start 03/04/16 at 21:00 Isosorbide Dinitrate (Isordil) 5 mg TID PO Last administered on 03/08/16 20:40 ; Admin Dose 5 MG; Start 03/04/16 at 21:00 Lisinopril (Zestril) 2.5 mg DAILY PO Last administered on 1/11/17at 09:54; Admin Dose 2.5 MG; Start 03/05/16 at 09:00 Clopidogrel Bisulfate (plaVIX) 75 mg DAILY PO Last administered on 03/09/16 08 :15; Admin Dose 75 MG; Start 03/05/16 at 09:00 Acetaminophen (Tylenol Tab) 650 mg Q4H PRN PO PAIN AND OR ELEVATED TEMP Last administered on 03/08/16 20:40; Admin Dose 650 MG; Start 03/05/16 at 11:30 Loperamide HCl (Imodium Cap) 2 mg QID PRN PO loose stool Last administered on 20:41; Admin Dose 2 MG; Start 03/06/16 at 06:00 Pantoprazole (Protonix Tab) 40 mg DAILY@06 PO Last administered on 03/09/16 05 :36; Admin Dose 40 MG; Start 03/08/16 at 06:00 Heparin Sodium (Porcine) (Heparin (5000 Units/0.5 ml)) 5,000 unit BID SC Last administered on 03/09/16 08:25; Admin Dose 5,000 UNIT; Start 03/08/16 at 21:00 Gentamicin Sulfate (Gentamicin Iv Per Pharmacy) GENTAMICIN PER PHARMACY NOTE XX ; Start 03/08/16 at 15:30 Fluconazole (Diflucan) 100 mg DAILY PO Last administered on 03/09/16 08:15; Admin Dose 100 MG; Start 03/09/16 at 09:00 Assessment/Plan Chief Complaint/Hosp Course IMPRESSION: 1. Status post non-ST elevation myocardial infarction, status post percutaneous coronary intervention with stent placement. 2. History of coronary artery disease with coronary artery bypass graft in the past. 3. End-stage renal disease on hemodialysis. 4. Status post acute hypoxemic renal failure. Pulmonary edema with volume overload, possible component of acute COPD exacerbation 5. Hypertension. 6. Urinary tract infection. RECOMMENDATIONS: 1. Continue oxygen and taper as tolerated. 2. Hemodialysis and ultrafiltration as per nephrology. Needs more volume removal during hemodialysis 3. Empiric trial of steroids 4. Continue bronchodilators Problems: RAFIA WRIGHT MD, [facility] Mar 09, 2016 11:33
[2016-03-09] MEDS: METHYLPREDNISOLONE 125 MG INJ IV SCH ×2 (13:12→21:20)
[2016-03-09] MEDS: LOPERAMIDE 2 MG CAP PO PRN ×2 (18:27→23:31)
[2016-03-09] MEDS ORDERED: [UNRECOGNIZED DRUG - REMARK] XX SCH (21:00)
--- NOTE | 2016-03-09 21:11 | PN ---
DATE: SUBJECTIVE: No acute changes overnight per report. The patient is alert, denies pain, feels better . No fevers. LABORATORY DATA: WBC today 14.6 with H and H 11.4 and 34.5, platelets 236, neutrophils 88.9. MICROBIOLOGY: Urine culture grew MRSA, enterococcus species, and Evi albicans. On 03/04/2016, stool for C. difficile came back negative. INDWELLINGS: The patient has right chest Perm-A-Cath. DIAGNOSTICS: Chest x-ray revealed no significant change. The patient had a pulmonary edema and/or inflammatory infiltrate, worse at the bases, particularly at the left base. ANTIMICROBIALS: 1. Gentamicin. 2. Diflucan. 3. Vancomycin. PHYSICAL EXAMINATION: GENERAL: This is a well-nourished, well-developed elderly woman who is alert, in no distress. HEENT: Head atraumatic, normocephalic. Sclerae anicteric. Buccal mucosa pink, dry. NECK: Supple. Trachea midline. CHEST: Rise symmetrical. Breath sounds diminished to bases. HEART: S1, S2. ABDOMEN: Soft, bowel sounds present. EXTREMITIES: Without cyanosis. ASSESSMENT: 1. Systemic inflammatory response syndrome with leukocytosis secondary to polymicrobial urinary tra ct infection. 2. Polymicrobial urinary tract infection. 3. End-stage renal disease, hemodialysis dependent. 4. Pulmonary edema with fluid overload. 5. History of coronary artery disease, non-ST elevation myocardial infarction, and status post perc utaneous transluminal coronary angioplasty with stent placement. 6. History of coronary artery bypass graft. PLAN: The patient remains stable. She was started on steroids. She is on appropriate antimicrobia ls and clinically improving. Continue present care and follow recommendation of consultants. Dictated By: CAMRYN HERNANDEZ REINSURANCE CLERK for PAGE TATE MD NI/NTS Conf#: [id number] DID#: [id number]
[2016-03-09] MEDS: MONTELUKAST 10 MG TAB PO SCH (21:18)
[2016-03-09] MEDS: ATORVASTATIN 80 MG TAB PO SCH (21:19)
[2016-03-09] MEDS: GENTAMICIN 60 MG in SOD CHLORIDE 0.9% 50 ML IVPB SCH (23:29)
[2016-03-09] MEDS: ACETAMINOPHEN 325 MG TAB PO PRN (23:31)
[2016-03-09] MEDS: EPOETIN 10000 UNITS/1 ML INJ (ESRD) SC SCH (23:41)
[2016-03-10] VITALS (12 sets, daily range): BP systolic 125–162; BP diastolic 56–71; PULSE 60–72; RESP 16–24
[2016-03-10] MEDS: IPRATROPIUM (NEB) 0.5 MG/2.5 ML AMP NEB SCH ×4 (01:15→20:57)
[2016-03-10] MEDS: LEVALBUTEROL (NEB) 1.25 MG/0.5 ML AMP HHN SCH ×4 (01:16→20:57)
[2016-03-10] MEDS: FUROSEMIDE 20 MG TAB PO SCH (05:16)
[2016-03-10] MEDS: PANTOPRAZOLE (EC) 40 MG TAB PO SCH (05:16)
[2016-03-10] MEDS: METHYLPREDNISOLONE 125 MG INJ IV SCH ×3 (05:19→21:34)
[2016-03-10 07:36] LABS: EOSINOPHILS % 0.1 % (0.0-7.0); HEMATOCRIT 27.4 % (37.0-47.0); HEMOGLOBIN 9.2 g/dl (12.0-16.0); LYMPHOCYTES # 0.6 10^3/ul (0.8-2.9); LYMPHOCYTES % 8.1 % (15.0-51.0); MEAN CORPUSCULAR HEMOGLOBIN 34.2 pg (29.0-33.0); MEAN CORPUSCULAR HGB CONC 33.6 g/dl (32.0-37.0); MEAN CORPUSCULAR VOLUME 101.8 fl (82.0-101.0); MEAN PLATELET VOLUME 8.9 fl (7.4-10.4); MONOCYTE # 0.1 10^3/ul (0.3-0.9); NEUTROPHIL # 6.3 10^3/ul (1.6-7.5); NEUTROPHILS % 90.8 % (39.0-77.0); PLATELET COUNT 202 10^3/UL (140-440); RED BLOOD COUNT 2.69 10^6/ul (4.20-5.40); RED CELL DISTRIBUTION WIDTH 15.1 % (11.5-14.5)
[2016-03-10 07:46] LABS: POTASSIUM 4.4 mmol/L (3.5-5.1)
[2016-03-10 07:48] LABS: CREATININE 2.6 mg/dl (0.44-1.00)
[2016-03-10 07:49] LABS: CALCIUM 8.4 mg/dl (8.4-10.2)
[2016-03-10 08:02] LABS: CONDITION 1; LH ANALYZER COMMENTS 1
[2016-03-10] MEDS: ISOSORBIDE DINITRATE 10 MG TAB PO SCH ×3 (08:29→21:35)
[2016-03-10] MEDS: FLUCONAZOLE 100 MG TAB PO SCH (08:29)
[2016-03-10] MEDS: CLOPIDOGREL 75 MG TAB PO SCH (08:30)
[2016-03-10] MEDS: ASPIRIN (EC) 81 MG TAB PO SCH (08:30)
[2016-03-10] MEDS: LISINOPRIL 5 MG TAB PO SCH (08:30)
[2016-03-10] MEDS: HEPARIN 5,000 UNIT/0.5 ML SYG SC SCH ×2 (08:31→21:38)
[2016-03-10] MEDS: MOMETASONE 0.24 GM INHALER INH SCH ×2 (08:32→21:36)
[2016-03-10] MEDS: LOPERAMIDE 2 MG CAP PO PRN ×3 (10:16→21:36)
--- NOTE | 2016-03-10 11:52 | PN ---
DATE: 03/10/2016 SUBJECTIVE: The patient is stable. The patient had hemodialysis yesterday, with 3 liters removed, and tolerated it well. No other acute events noted. No hemoptysis, hematemesis or hematochezia. OBJECTIVE: VITAL SIGNS: Blood pressure 155/65, respirations 16, pulse 65, temperature 97.8. HEENT: Head is normocephalic. NECK: Supple. HEART: Regular rate. LUNGS: Showed diminished breath sounds at the base. ABDOMEN: Soft, nontender to palpation. No rebound or guarding. EXTREMITIES: Negative for clubbing or cyanosis. No edema. DERMATOLOGIC: No rashes. MUSCULOSKELETAL: Have no joint effusion. NEUROLOGIC: No change in exam. MEDICATIONS: The patient's medications have been reviewed. LABORATORY DATA: Shows a sodium 133, potassium 4.4, chloride 93, BUN 29, creatinine 2.60. White co unt 7.9, hemoglobin 9.2, hematocrit 27.4, platelet count is 202. ASSESSMENT AND PLAN: 1. End-stage renal disease. The patient is receiving daily dialysis for volume removal and solute clearance. Anticipate hemodialysis tomorrow. Will be dialyzed for 3 hours on a 3K bath, calcium 2. 5. Will ultrafiltrate as tolerated. 2. Volume overload. The patient is near euvolemic status. Continue ultrafiltration dialysis. 3. Anemia. Continue to monitor hemoglobin and hematocrit levels. Continue Epogen. 4. Mineral bone disorder. Continue to monitor calcium and phos levels. Continue phos binders. 5. Acute respiratory failure secondary to pneumonia, chronic obstructive pulmonary disease, and con gestive heart failure. Continue the current medical management and antibiotics. Continue ultrafilt ration dialysis. 6. Hyponatremia. Continue dialysis on a 140 sodium bath. 7. Non-ST elevation myocardial infarction. Continue medical management. 8. Hypertension. Controlled. Continue the current blood pressure regimen. Dictated By: TOM CUNNINGHAM/DUTCH Conf#: [id number] DID#: [id number]
--- NOTE | 2016-03-10 13:11 | PN ---
Date/Time of Note Date/Time of Note DATE: 03/10/16 TIME: 12:59 Assessment/Plan VTE Prophylaxis VTE Prophylaxis Intervention: heparin Lines/Catheters IV C[facility]ter Type [facility]from [facility] Urinary Cath still in place: No Assessment/Plan Assessment/Plan 1. Non-ST elevated myocardial infarction. The patient is status post percutaneous coronary intervention with stent placement for left main ostial lesion - Continue on antiplatelet therapy. - - Continue on beta-angelica. 2. History of coronary artery disease with coronary artery bypass graft. -continue antiplatelet therapy 3. Healthcare-acquired pneumonia -. We will continue the patient on antibiotics. Will provide with bronchodilators as needed for shortness of breath. 4. Acute respiratory failure secondary to #3. Improved at present. - bronchodilators, titrate down O2 as tolerated. Off BiPAP at this time. 5. Sepsis secondary to UTI and possibly pneumonia. Appears to be improving at present. - We will follow up on CBC. - Continue current antibiotics. 6. End-stage renal disease on dialysis. 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 - Continue on dialysis. - Monitor for hyperkalemia. 7. Accelerated hypertension. We will continue on antihypertensives and adjust as needed. 8. MRSA UTI - appreciate ID consultation, + for MRSA, Evi, enterococcus - now on Vanco + Gent and Fluconazole - f/u ID rec's 9. COPD from previous smoking, quitted 26 years ago, on neb, SoluMedrol, and singular Subjective 24 Hr Interval Summary Free Text/Dictation still has shortness of breath, no fever, no chest pain Exam/Review of Systems Vital Signs Vitals Vital Signs Date Time Temp Pulse Resp B/P Pulse Ox O2 Delivery O2 Flow Rate FiO2 03/10/16 12:22 63 03/10/16 11:03 98.2 22 156/71 90 03/10/16 09:13 Nasal Cannula 3.0 03/09/16 10:04 50 Intake and Output 03/09/16 03/09/16 03/10/16 15:00 23:00 07:00 Intake Total 500 ml 840 ml 240 ml Output Total 3500 ml Balance -3000 ml 840 ml 240 ml Exam Constitutional: alert, oriented, well developed Psych: nl mood/affect, no complaints Head: atraumatic, normocephalic Eyes: EOMI, PERRL, nl conjunctiva, nl lids, nl sclera ENMT: mucosa pink and moist, nl external ears & nose, nl lips & teeth, nl nasal mucosa & septum Neck: non-tender, supple Respiratory: clear to auscultation, diminished breath sounds Cardiovascular: nl pulses, regular rate and rhythm Gastrointestinal: nl liver, spleen, non-tender, soft Extremities: No calf tenderness, No clubbing, No cyanosis, No edema, No palpable cord, No pitting pedal edema, No tenderness 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, nl mental status, nl speech, nl strength Skin: nl turgor, rash or lesions Lymph: nl lymph nodes Results Result Diagram: 03/10/16 0530 03/10/16 0530 Results 24 hrs Laboratory Tests Test 03/10/16 05:30 Anion Gap 19 H Basophils # 0.0 Basophils % 0.0 Blood Morphology Comment Blood Urea Nitrogen 39 #H Calcium Level 8.4 Carbon Dioxide Level 25 Chloride Level 93 L Creatinine 2.60 #H Eosinophils # 0.0 Eosinophils % 0.1 Glucose Level 123 Hematocrit 27.4 #L Hemoglobin 9.2 L Lymphocytes # 0.6 L Lymphocytes % 8.1 L Mean Corpuscular Hemoglobin 34.2 H Mean Corpuscular Hemoglobin Concent 33.6 Mean Corpuscular Volume 101.8 H Mean Platelet Volume 8.9 Monocytes # 0.1 L Monocytes % 1.0 Neutrophils # 6.3 Neutrophils % 90.8 H Nucleated Red Blood Cells # 0.0 Nucleated Red Blood Cells % 0.0 Platelet Count 202 Potassium Level 4.4 Random Vancomycin Level 9.5 Red Blood Count 2.69 L Red Cell Distribution Width 15.1 H Sodium Level 133 L White Blood Count 7.0 # Medications Medications Current Medications Ondansetron HCl (Zofran Inj) 4 mg Q6H PRN IV NAUSEA AND/OR VOMITING; Start 03/04 at 11:30 Nitroglycerin (Nitroglycerin (Sl Tab) 0.4 Mg) 1 tab Q5M PRN SL CHEST PAIN; Start 03/04/16 at 11:30 Acetaminophen (Tylenol Supp) 650 mg Q4H PRN [place] PAIN LEVEL 1-3 OR FEVER; Start 03/04/16 at 11:30 Morphine Sulfate (morphine) 2 mg Q4H PRN IV PAIN LEVEL 7-10; Start 03/04/16 at 11:30 Lorazepam (Ativan) 1 mg Q2H PRN IV ANXIETY; Start 03/04/16 at 11:30 Mometasone Furoate (Asmanex) 1 puff BID INH Last administered on 03/10/16 08: 32; Admin Dose 1 PUFF; Start 03/04/16 at 21:00 Aspirin (Halfprin) 81 mg DAILY PO Last administered on 03/10/16 08:30; Admin Dose 81 MG; Start 03/05/16 at 09:00 Furosemide (Lasix) 20 mg DAILY@06 PO Last administered on 03/10/16 05:16; Admin Dose 20 MG; Start 03/05/16 at 06:00 Montelukast Sodium (Singulair) 10 mg QHS PO Last administered on 03/09/16 21: 18; Admin Dose 10 MG; Start 03/04/16 at 21:00 Atorvastatin Calcium (Lipitor) 80 mg DAILY@21 PO Last administered on 21:19; Admin Dose 80 MG; Start 03/04/16 at 21:00 Carvedilol (Coreg) 6.25 mg BID PO Last administered on 03/10/16 08:30; Admin Dose 6.25 MG; Start 03/04/16 at 21:00 Hydralazine HCl (Apresoline) 25 mg TID PO Last administered on 03/10/16 08:30 ; Admin Dose 25 MG; Start 03/04/16 at 21:00 Isosorbide Dinitrate (Isordil) 5 mg TID PO Last administered on 03/10/16 08:29 ; Admin Dose 5 MG; Start 03/04/16 at 21:00 Lisinopril (Zestril) 2.5 mg DAILY PO Last administered on 03/10/16 08:30; Admin Dose 2.5 MG; Start 03/05/16 at 09:00 Clopidogrel Bisulfate (plaVIX) 75 mg DAILY PO Last administered on 03/10/16 08 :30; Admin Dose 75 MG; Start 03/05/16 at 09:00 Acetaminophen (Tylenol Tab) 650 mg Q4H PRN PO PAIN AND OR ELEVATED TEMP Last administered on 03/09/16 23:31; Admin Dose 650 MG; Start 03/05/16 at 11:30 Loperamide HCl (Imodium Cap) 2 mg QID PRN PO loose stool Last administered on 10:16; Admin Dose 2 MG; Start 03/06/16 at 06:00 Pantoprazole (Protonix Tab) 40 mg DAILY@06 PO Last administered on 03/10/16 05 :16; Admin Dose 40 MG; Start 03/08/16 at 06:00 Heparin Sodium (Porcine) (Heparin (5000 Units/0.5 ml)) 5,000 unit BID SC Last administered on 03/10/16 08:31; Admin Dose 5,000 UNIT; Start 03/08/16 at 21:00 Gentamicin Sulfate (Gentamicin Iv Per Pharmacy) GENTAMICIN PER PHARMACY NOTE XX ; Start 03/08/16 at 15:30 Fluconazole (Diflucan) 100 mg DAILY PO Last administered on 03/10/16 08:29; Admin Dose 100 MG; Start 03/09/16 at 09:00 Methylprednisolone Sodium Succinate (Solu-Medrol) 60 mg Q8 IV Last administered on 03/10/16 05:19; Admin Dose 60 MG; Start 03/09/16 at 14:00 ELSY DOMINGO MD Mar 10, 2016 13:10
--- NOTE | 2016-03-10 14:29 | PN ---
DATE: 03/10/2016 PULMONARY FOLLOWUP SUBJECTIVE: Chart reviewed. Events noted. Patient currently on 3 L O2 nasal cannula, saturating 9 8%, and does not appear in acute distress. PHYSICAL EXAMINATION: VITAL SIGNS: Blood pressure 156/71, pulse 85, respirations 22, temperature 98.2. HEENT: Pupils are equal and reactive to light. NECK: Supple. Mild JVD noted, no cervical adenopathy noted, no carotid bruits heard. LUNGS: Diminished breath sounds at the bases. CARDIOVASCULAR: S1, S2 normal. ABDOMEN: Soft, nontender. No organomegaly or masses noted. EXTREMITIES: No clubbing or cyanosis noted. NEUROLOGIC: No changes. LABORATORIES: Sodium 133, potassium 4.4, chloride 93, CO2 of 25, BUN 39, creatinine 2.6, glucose 12 3. WBC 7, hemoglobin 9.2, hematocrit 27.4, platelets 202. IMPRESSION: 1. Status post acute hypoxemic respiratory failure. 2. Status post [id number] myocardial infarction. 3. End-stage renal disease, on hemodialysis. 4. Volume overload, status post hemodialysis yesterday. RECOMMENDATIONS: 1. Continue oxygen. 2. Continue hemodialysis and ultrafiltration as per nephrology. 3. Followup x-ray. 4. Above discussed with the staff. Dictated By: TANESHA DUNCAN MD, MA/DUTCH Conf#: [id number] DID#: [id number]
--- NOTE | 2016-03-10 14:44 | CONS ---
Date/Time of Note Date/Time of Note DATE: 03/10/16 TIME: 14:42 Consult Date/Type/Reason Admit Date/Time Mar 04, 2016 at 14:42 Initial Consult Date 03/04/16 Type of Consultation: card Objective Vital Signs Date Time Temp Pulse Resp B/P Pulse Ox O2 Delivery O2 Flow Rate FiO2 03/10/16 12:22 63 03/10/16 11:03 98.2 22 156/71 90 03/10/16 09:13 Nasal Cannula 3.0 03/09/16 10:04 50 Intake and Output 03/09/16 03/09/16 03/10/16 15:00 23:00 07:00 Intake Total 500 ml 840 ml 240 ml Output Total 3500 ml Balance -3000 ml 840 ml 240 ml Results/Medications Result Diagram: 03/10/16 0530 03/10/16 0530 Results 24 hrs Laboratory Tests Test 03/10/16 05:30 Anion Gap 19 H Basophils # 0.0 Basophils % 0.0 Blood Morphology Comment Blood Urea Nitrogen 39 #H Calcium Level 8.4 Carbon Dioxide Level 25 Chloride Level 93 L Creatinine 2.60 #H Eosinophils # 0.0 Eosinophils % 0.1 Glucose Level 123 Hematocrit 27.4 #L Hemoglobin 9.2 L Lymphocytes # 0.6 L Lymphocytes % 8.1 L Mean Corpuscular Hemoglobin 34.2 H Mean Corpuscular Hemoglobin Concent 33.6 Mean Corpuscular Volume 101.8 H Mean Platelet Volume 8.9 Monocytes # 0.1 L Monocytes % 1.0 Neutrophils # 6.3 Neutrophils % 90.8 H Nucleated Red Blood Cells # 0.0 Nucleated Red Blood Cells % 0.0 Platelet Count 202 Potassium Level 4.4 Random Vancomycin Level 9.5 Red Blood Count 2.69 L Red Cell Distribution Width 15.1 H Sodium Level 133 L White Blood Count 7.0 # Medications Current Medications Ondansetron HCl (Zofran Inj) 4 mg Q6H PRN IV NAUSEA AND/OR VOMITING; Start 03/04 at 11:30 Nitroglycerin (Nitroglycerin (Sl Tab) 0.4 Mg) 1 tab Q5M PRN SL CHEST PAIN; Start 03/04/16 at 11:30 Acetaminophen (Tylenol Supp) 650 mg Q4H PRN [place] PAIN LEVEL 1-3 OR FEVER; Start 03/04/16 at 11:30 Morphine Sulfate (morphine) 2 mg Q4H PRN IV PAIN LEVEL 7-10; Start 03/04/16 at 11:30 Lorazepam (Ativan) 1 mg Q2H PRN IV ANXIETY; Start 03/04/16 at 11:30 Mometasone Furoate (Asmanex) 1 puff BID INH Last administered on 03/10/16 08: 32; Admin Dose 1 PUFF; Start 03/04/16 at 21:00 Aspirin (Halfprin) 81 mg DAILY PO Last administered on 03/10/16 08:30; Admin Dose 81 MG; Start 03/05/16 at 09:00 Furosemide (Lasix) 20 mg DAILY@06 PO Last administered on 03/10/16 05:16; Admin Dose 20 MG; Start 03/05/16 at 06:00 Montelukast Sodium (Singulair) 10 mg QHS PO Last administered on 03/09/16 21: 18; Admin Dose 10 MG; Start 03/04/16 at 21:00 Atorvastatin Calcium (Lipitor) 80 mg DAILY@21 PO Last administered on 21:19; Admin Dose 80 MG; Start 03/04/16 at 21:00 Carvedilol (Coreg) 6.25 mg BID PO Last administered on 03/10/16 08:30; Admin Dose 6.25 MG; Start 03/04/16 at 21:00 Hydralazine HCl (Apresoline) 25 mg TID PO Last administered on 03/10/16 13:22 ; Admin Dose 25 MG; Start 03/04/16 at 21:00 Isosorbide Dinitrate (Isordil) 5 mg TID PO Last administered on 03/10/16 13:21 ; Admin Dose 5 MG; Start 03/04/16 at 21:00 Lisinopril (Zestril) 2.5 mg DAILY PO Last administered on 03/10/16 08:30; Admin Dose 2.5 MG; Start 03/05/16 at 09:00 Clopidogrel Bisulfate (plaVIX) 75 mg DAILY PO Last administered on 03/10/16 08 :30; Admin Dose 75 MG; Start 03/05/16 at 09:00 Acetaminophen (Tylenol Tab) 650 mg Q4H PRN PO PAIN AND OR ELEVATED TEMP Last administered on 03/09/16 23:31; Admin Dose 650 MG; Start 03/05/16 at 11:30 Loperamide HCl (Imodium Cap) 2 mg QID PRN PO loose stool Last administered on 10:16; Admin Dose 2 MG; Start 03/06/16 at 06:00 Pantoprazole (Protonix Tab) 40 mg DAILY@06 PO Last administered on 03/10/16 05 :16; Admin Dose 40 MG; Start 03/08/16 at 06:00 Heparin Sodium (Porcine) (Heparin (5000 Units/0.5 ml)) 5,000 unit BID SC Last administered on 03/10/16 08:31; Admin Dose 5,000 UNIT; Start 03/08/16 at 21:00 Gentamicin Sulfate (Gentamicin Iv Per Pharmacy) GENTAMICIN PER PHARMACY NOTE XX ; Start 03/08/16 at 15:30 Fluconazole (Diflucan) 100 mg DAILY PO Last administered on 03/10/16 08:29; Admin Dose 100 MG; Start 03/09/16 at 09:00 Methylprednisolone Sodium Succinate (Solu-Medrol) 60 mg Q8 IV Last administered on 03/10/16 14:31; Admin Dose 60 MG; Start 03/09/16 at 14:00 Assessment/Plan Chief Complaint/Hosp Course Patient is 75-year-old female with past medical history of coronary artery disease status post bypass surgery, severe peripheral vascular disease status post aortofemoral bypass, ESRD on hemodialysis, hypertension, dyslipidemia who presented to ER with a complaining of shortness of breath and pulmonary edema found to have elevated troponin with EKG changes was initially meetings Scar[place]oso criteria on left bundle-branch block but patient was at that time tachycardic source STEMI was not called but H and was high risk non-ST elevation myocardial infarction with some EKG changes and troponin of 2.5 with significant coronary artery disease risk and history with the patient to urgently to cardiac Location Manager Problems: Additional Assessment/Plan Patient status post coronary intervention of the left main She was feeling great until 2 days ago that he suddenly started feeling shortness of breath Underwent dialysis as well as now on steroids treatment She is still wheezing she has a hoarseness of voice likely a viral with decompensating heart failure secondary to ischemic cardiomyopathy Continue hemodialysis as well as pulmonary care. There is no new telemetry changes or arrhythmias suggestive of any acute coronary syndrome returning. Continue current medical management follow-up outpatient cardiac bautista patient is stable ARTURO REINOSO MD Mar 10, 2016 14:44
[2016-03-10] MEDS ORDERED: VANCOMYCIN 1 GM in NS 250 ML IVPB SCH (16:00)
--- NOTE | 2016-03-10 20:02 | CONS ---
Date/Time of Note Date/Time of Note DATE: 03/10/16 TIME: 20:00 Consult Date/Type/Reason Admit Date/Time Mar 04, 2016 at 14:42 Initial Consult Date 03/04/16 Type of Consultation: ID Subjective no events, awake, denies pain, looks comfortable, no fevers Objective Vital Signs Date Time Temp Pulse Resp B/P Pulse Ox O2 Delivery O2 Flow Rate FiO2 03/10/16 17:11 82 20 94 Nasal Cannula 3.0 03/10/16 17:00 153/66 03/10/16 15:30 98.2 03/09/16 10:04 50 Intake and Output 03/09/16 03/09/16 03/10/16 15:00 23:00 07:00 Intake Total 500 ml 840 ml 240 ml Output Total 3500 ml Balance -3000 ml 840 ml 240 ml Results/Medications Result Diagram: 03/10/16 0530 03/10/16 0530 Results 24 hrs Laboratory Tests Test 03/10/16 05:30 Anion Gap 19 H Basophils # 0.0 Basophils % 0.0 Blood Morphology Comment Blood Urea Nitrogen 39 #H Calcium Level 8.4 Carbon Dioxide Level 25 Chloride Level 93 L Creatinine 2.60 #H Eosinophils # 0.0 Eosinophils % 0.1 Glucose Level 123 Hematocrit 27.4 #L Hemoglobin 9.2 L Lymphocytes # 0.6 L Lymphocytes % 8.1 L Mean Corpuscular Hemoglobin 34.2 H Mean Corpuscular Hemoglobin Concent 33.6 Mean Corpuscular Volume 101.8 H Mean Platelet Volume 8.9 Monocytes # 0.1 L Monocytes % 1.0 Neutrophils # 6.3 Neutrophils % 90.8 H Nucleated Red Blood Cells # 0.0 Nucleated Red Blood Cells % 0.0 Platelet Count 202 Potassium Level 4.4 Random Vancomycin Level 9.5 Red Blood Count 2.69 L Red Cell Distribution Width 15.1 H Sodium Level 133 L White Blood Count 7.0 # Medications Current Medications Ondansetron HCl (Zofran Inj) 4 mg Q6H PRN IV NAUSEA AND/OR VOMITING; Start 03/04 at 11:30 Nitroglycerin (Nitroglycerin (Sl Tab) 0.4 Mg) 1 tab Q5M PRN SL CHEST PAIN; Start 03/04/16 at 11:30 Acetaminophen (Tylenol Supp) 650 mg Q4H PRN [place] PAIN LEVEL 1-3 OR FEVER; Start 03/04/16 at 11:30 Morphine Sulfate (morphine) 2 mg Q4H PRN IV PAIN LEVEL 7-10; Start 03/04/16 at 11:30 Lorazepam (Ativan) 1 mg Q2H PRN IV ANXIETY; Start 03/04/16 at 11:30 Mometasone Furoate (Asmanex) 1 puff BID INH Last administered on 03/10/16 08: 32; Admin Dose 1 PUFF; Start 03/04/16 at 21:00 Aspirin (Halfprin) 81 mg DAILY PO Last administered on 03/10/16 08:30; Admin Dose 81 MG; Start 03/05/16 at 09:00 Furosemide (Lasix) 20 mg DAILY@06 PO Last administered on 03/10/16 05:16; Admin Dose 20 MG; Start 03/05/16 at 06:00 Montelukast Sodium (Singulair) 10 mg QHS PO Last administered on 03/09/16 21: 18; Admin Dose 10 MG; Start 03/04/16 at 21:00 Atorvastatin Calcium (Lipitor) 80 mg DAILY@21 PO Last administered on 21:19; Admin Dose 80 MG; Start 03/04/16 at 21:00 Carvedilol (Coreg) 6.25 mg BID PO Last administered on 03/10/16 08:30; Admin Dose 6.25 MG; Start 03/04/16 at 21:00 Hydralazine HCl (Apresoline) 25 mg TID PO Last administered on 03/10/16 13:22 ; Admin Dose 25 MG; Start 03/04/16 at 21:00 Isosorbide Dinitrate (Isordil) 5 mg TID PO Last administered on 03/10/16 13:21 ; Admin Dose 5 MG; Start 03/04/16 at 21:00 Lisinopril (Zestril) 2.5 mg DAILY PO Last administered on 03/10/16 08:30; Admin Dose 2.5 MG; Start 03/05/16 at 09:00 Clopidogrel Bisulfate (plaVIX) 75 mg DAILY PO Last administered on 03/10/16 08 :30; Admin Dose 75 MG; Start 03/05/16 at 09:00 Acetaminophen (Tylenol Tab) 650 mg Q4H PRN PO PAIN AND OR ELEVATED TEMP Last administered on 03/09/16 23:31; Admin Dose 650 MG; Start 03/05/16 at 11:30 Loperamide HCl (Imodium Cap) 2 mg QID PRN PO loose stool Last administered on 16:30; Admin Dose 2 MG; Start 03/06/16 at 06:00 Pantoprazole (Protonix Tab) 40 mg DAILY@06 PO Last administered on 03/10/16 05 :16; Admin Dose 40 MG; Start 03/08/16 at 06:00 Heparin Sodium (Porcine) (Heparin (5000 Units/0.5 ml)) 5,000 unit BID SC Last administered on 03/10/16 08:31; Admin Dose 5,000 UNIT; Start 03/08/16 at 21:00 Gentamicin Sulfate (Gentamicin Iv Per Pharmacy) GENTAMICIN PER PHARMACY NOTE XX ; Start 03/08/16 at 15:30 Fluconazole (Diflucan) 100 mg DAILY PO Last administered on 03/10/16 08:29; Admin Dose 100 MG; Start 03/09/16 at 09:00 Methylprednisolone Sodium Succinate (Solu-Medrol) 60 mg Q8 IV Last administered on 03/10/16 14:31; Admin Dose 60 MG; Start 03/09/16 at 14:00 Assessment/Plan Chief Complaint/Hosp Course INDWELLINGS: The patient has right chest Perm-A-Cath. DIAGNOSTICS: Chest x-ray revealed no significant change. The patient had a pulmonary edema and/or inflammatory infiltrate, worse at the bases, particularly at the left base. ANTIMICROBIALS: 1. Gentamicin. 2. Diflucan. 3. Vancomycin. PHYSICAL EXAMINATION: GENERAL: This is a well-nourished, well-developed elderly woman who is alert, in no distress. HEENT: Head atraumatic, normocephalic. Sclerae anicteric. Buccal mucosa pink , dry. NECK: Supple. Trachea midline. CHEST: Rise symmetrical. Breath sounds diminished to bases. HEART: S1, S2. ABDOMEN: Soft, bowel sounds present. EXTREMITIES: Without cyanosis. ASSESSMENT: 1. Systemic inflammatory response syndrome with leukocytosis secondary to #2. 2. Polymicrobial urinary tract infection. 3. End-stage renal disease, hemodialysis dependent. 4. Pulmonary edema with fluid overload. 5. History of coronary artery disease, non-ST elevation myocardial infarction, and status post percutaneous transluminal coronary angioplasty with stent placement. 6. History of coronary artery bypass graft. 7. MRSA + nares PLAN: The patient remains stable. She is on appropriate antimicrobials and clinically improving. She is also on steroids Will add Bactroban to nares and Hibiclens baths daily, follow recommendation of consultants. DW staff Problems: CAMRYN HERNANDEZ NP Mar 10, 2016 20:02
[2016-03-10] MEDS: ATORVASTATIN 80 MG TAB PO SCH (21:34)
[2016-03-10] MEDS: ACETAMINOPHEN 325 MG TAB PO PRN (21:35)
[2016-03-10] MEDS: MUPIROCIN 2% 22 GM OINT TOP SCH (21:38)
[2016-03-10] MEDS: MONTELUKAST 10 MG TAB PO SCH (22:34)
[2016-03-11] VITALS (19 sets, daily range): BP systolic 102–163; BP diastolic 46–74; PULSE 53–65; RESP 18–19
[2016-03-11] MEDS: IPRATROPIUM (NEB) 0.5 MG/2.5 ML AMP NEB SCH ×4 (01:56→20:10)
[2016-03-11] MEDS: LEVALBUTEROL (NEB) 1.25 MG/0.5 ML AMP HHN SCH ×4 (01:57→20:10)
[2016-03-11] MEDS: METHYLPREDNISOLONE 125 MG INJ IV SCH ×3 (06:00→21:13)
[2016-03-11] MEDS: PANTOPRAZOLE (EC) 40 MG TAB PO SCH (06:00)
[2016-03-11] MEDS: LOPERAMIDE 2 MG CAP PO PRN ×3 (06:00→18:52)
[2016-03-11] MEDS: FUROSEMIDE 20 MG TAB PO SCH (06:01)
[2016-03-11 06:49] LABS: POTASSIUM 4.4 mmol/L (3.5-5.1)
[2016-03-11 06:52] LABS: CREATININE 3.28 mg/dl (0.44-1.00); EOSINOPHILS % 0.1 % (0.0-7.0); HEMATOCRIT 27.2 % (37.0-47.0); HEMOGLOBIN 9.1 g/dl (12.0-16.0); LYMPHOCYTES # 0.6 10^3/ul (0.8-2.9); MEAN CORPUSCULAR HEMOGLOBIN 34.2 pg (29.0-33.0); MEAN CORPUSCULAR HGB CONC 33.4 g/dl (32.0-37.0); MEAN CORPUSCULAR VOLUME 102.2 fl (82.0-101.0); MEAN PLATELET VOLUME 8.6 fl (7.4-10.4); MONOCYTE # 0.2 10^3/ul (0.3-0.9); MONOCYTES % 1.7 % (0.0-11.0); NEUTROPHIL # 8.4 10^3/ul (1.6-7.5); NEUTROPHILS % 91.2 % (39.0-77.0); PLATELET COUNT 184 10^3/UL (140-440); RED BLOOD COUNT 2.66 10^6/ul (4.20-5.40); UNCORRECTED WBC 9.2 10^3/ul (4.8-10.8); WHITE BLOOD COUNT 9.2 10^3/ul (4.8-10.8)
[2016-03-11 06:53] LABS: CALCIUM 8.4 mg/dl (8.4-10.2)
[2016-03-11 07:26] LABS: CONDITION 1; LH ANALYZER COMMENTS 1
[2016-03-11] MEDS: LISINOPRIL 5 MG TAB PO SCH (09:00)
--- NOTE | 2016-03-11 09:09 | PN ---
DATE: 03/11/2016 SUBJECTIVE: The patient is stable. She continues to have some mild shortness of breath, but improv ing. No other acute events noted. No hemoptysis, hematemesis or hematochezia. OBJECTIVE: VITAL SIGNS: Blood pressure is 139/62, respirations 18, pulse 83, temperature 98.2. HEENT: Head is normocephalic. NECK: Supple. HEART: Regular rate. LUNGS: Showed diminished breath sounds at the base. ABDOMEN: Soft, nontender to palpation. No rebound or guarding. EXTREMITIES: Negative for clubbing or cyanosis. Trace edema. DERMATOLOGIC: No rashes. MUSCULOSKELETAL: Have no joint effusion. NEUROLOGIC: No change in exam. MEDICATIONS: The patient's medications have been reviewed. LABORATORY DATA: Shows sodium 128, potassium 4.4, chloride 92, BUN 61, creatinine 3.28. White coun t 9.2, hemoglobin 9.1, hematocrit 27.2, platelet count is 184. ASSESSMENT AND PLAN: 1. End-stage renal disease. The patient is scheduled for dialysis today for 3 hours on a 3K bath, calcium 2.5. Will ultrafiltrate as tolerated. 2. Volume overload. Continue ultrafiltration dialysis. 3. Anemia. Continue to monitor hemoglobin and hematocrit levels. Continue Epogen. 4. Mineral bone disorder. Continue to monitor calcium and phosphorus levels. Continue phos binders . 5. Acute respiratory failure secondary to pneumonia, chronic obstructive pulmonary disease, and con gestive heart failure. Continue the current medical management, as stated above. Continue antibiot ic therapy. Continue ultrafiltration. 6. Hyponatremia secondary to end-stage renal disease. The patient is encouraged to limit free wate r intake. Continue dialysis on a 140 sodium bath. 7. Non-ST elevation myocardial infarction. Continue medical management. 8. Hypertension. Continue the current blood pressure regimen. Dictated By: TOM CUNNINGHAM/DUTCH Conf#: [id number] DID#: [id number]
[2016-03-11 10:37] LABS: ANISOCYTOSIS 1+; POIKILOCYTOSIS 1+
[2016-03-11 10:38] LABS: BURR CELLS OCCASIONAL; OVALOCYTES FEW
--- NOTE | 2016-03-11 10:48 | CONS ---
Date/Time of Note Date/Time of Note DATE: 03/11/16 TIME: 10:48 Assessment/Plan Assessment/Plan Chief Complaint/Hosp Course ID PROGRESS NOTE TOTAL ABX DAY # => Vanco IV, Gent, Diflucan 24H INTERVAL SUMMARY * Awake, alert, sitting up in chair eating lunch, VSS, NAD * No fevers,. WBC normal range * Chest x-ray revealed no significant change. The patient had a pulmonary edema and/or inflammatory infiltrate, worse at the bases, particularly at the left base. Specimen: [id number] Status: Resulted Delon: 03/10/16 Rcvd: 03/10 Source: [facility] Sp Descrip: Procedure Result Microbiology URINE CULTURE Preliminary Culture too young to evaluate PHYSICAL EXAMINATION: GENERAL: 75 yo F, VSS, NAD, A/A/O HEENT: Unremarkable NECK: Supple, trachea midline. CHEST: Rise symmetrical without dyspnea HEART: RRR ABDOMEN: Soft EXTREMITIES: Warm ID ASSESSMENT: 75 yo F admit with: 1. Systemic inflammatory response syndrome with leukocytosis secondary to #2. 2. Polymicrobial urinary tract infection. 3. End-stage renal disease, hemodialysis dependent. 4. Pulmonary edema with fluid overload. 5. History of coronary artery disease, non-ST elevation myocardial infarction, and status post percutaneous transluminal coronary angioplasty with stent placement. 6. History of coronary artery bypass graft. (+)MRSA Nares INVASIVES: *R-chest PermCath. CURRENT ABX: # => Vanco IV, Gent, Diflucan s/p ID RECOMMENDATIONS: CONTINUE Current ABX => Repeat urine culture pending Initiated on Bactroban->Nares and Hibiclens bath Follow recommendation of consultants . Problems: Consultation Date/Type/Reason Admit Date/Time Mar 04, 2016 at 14:42 Initial Consult Date 03/04/16 Type of Consultation: ID Exam/Review of Systems Vital Signs Vitals Vital Signs Date Time Temp Pulse Resp B/P Pulse Ox O2 Delivery O2 Flow Rate FiO2 03/11/16 10:00 53 19 03/11/16 09:03 94 Nasal Cannula 3.0 03/11/16 08:14 98.0 133/67 03/09/16 10:04 50 Intake and Output 03/10/16 03/10/16 03/11/16 15:00 23:00 07:00 Intake Total 840 ml 200 ml Output Total 350 ml Balance 490 ml 200 ml Results Result Diagram: 03/11/16 0610 03/11/16 0610 Results 24 hrs Laboratory Tests Test 03/11/16 06:10 Anion Gap 17 H Anisocytosis 1+ Basophils # 0.0 Basophils % 0.0 Blood Morphology Comment Blood Urea Nitrogen 61 H Calcium Level 8.4 Carbon Dioxide Level 23 Chloride Level 92 L Creatinine 3.28 H Eosinophils # 0.0 Eosinophils % 0.1 Glucose Level 125 Hematocrit 27.2 L Hemoglobin 9.1 L Lymphocytes # 0.6 L Lymphocytes % 7.0 L Mean Corpuscular Hemoglobin 34.2 H Mean Corpuscular Hemoglobin Concent 33.4 Mean Corpuscular Volume 102.2 H Mean Platelet Volume 8.6 Monocytes # 0.2 L Monocytes % 1.7 Neutrophils # 8.4 H Neutrophils % 91.2 H Nucleated Red Blood Cells # 0.0 Nucleated Red Blood Cells % 0.0 Ovalocytes FEW Platelet Count 184 Potassium Level 4.4 Red Blood Count 2.66 L Red Cell Distribution Width 15.0 H Sodium Level 128 L White Blood Count 9.2 # Medications Medications Current Medications Ondansetron HCl (Zofran Inj) 4 mg Q6H PRN IV NAUSEA AND/OR VOMITING; Start 03/04 at 11:30 Nitroglycerin (Nitroglycerin (Sl Tab) 0.4 Mg) 1 tab Q5M PRN SL CHEST PAIN; Start 03/04/16 at 11:30 Acetaminophen (Tylenol Supp) 650 mg Q4H PRN [place] PAIN LEVEL 1-3 OR FEVER; Start 03/04/16 at 11:30 Morphine Sulfate (morphine) 2 mg Q4H PRN [place] PAIN LEVEL 7-10; Start 03/04/16 at 11:30 Lorazepam (Ativan) 1 mg Q2H PRN IV ANXIETY; Start 03/04/16 at 11:30 Mometasone Furoate (Asmanex) 1 puff BID INH Last administered on 03/10/16 21: 36; Admin Dose 1 PUFF; Start 03/04/16 at 21:00 Aspirin (Halfprin) 81 mg DAILY PO Last administered on 03/10/16 08:30; Admin Dose 81 MG; Start 03/05/16 at 09:00 Furosemide (Lasix) 20 mg DAILY@06 PO Last administered on 03/11/16 06:01; Admin Dose 20 MG; Start 03/05/16 at 06:00 Montelukast Sodium (Singulair) 10 mg QHS PO Last administered on 03/10/16 22: 34; Admin Dose 10 MG; Start 03/04/16 at 21:00 Atorvastatin Calcium (Lipitor) 80 mg DAILY@21 PO Last administered on 21:34; Admin Dose 80 MG; Start 03/04/16 at 21:00 Carvedilol (Coreg) 6.25 mg BID PO Last administered on 03/10/16 21:36; Admin Dose 6.25 MG; Start 03/04/16 at 21:00 Hydralazine HCl (Apresoline) 25 mg TID PO Last administered on 03/10/16 21:35 ; Admin Dose 25 MG; Start 03/04/16 at 21:00 Isosorbide Dinitrate (Isordil) 5 mg TID PO Last administered on 03/10/16 21:35 ; Admin Dose 5 MG; Start 03/04/16 at 21:00 Lisinopril (Zestril) 2.5 mg DAILY PO Last administered on 03/10/16 08:30; Admin Dose 2.5 MG; Start 03/05/16 at 09:00 Clopidogrel Bisulfate (plaVIX) 75 mg DAILY PO Last administered on 03/10/16 08 :30; Admin Dose 75 MG; Start 03/05/16 at 09:00 Acetaminophen (Tylenol Tab) 650 mg Q4H PRN PO PAIN AND OR ELEVATED TEMP Last administered on 03/10/16 21:35; Admin Dose 650 MG; Start 03/05/16 at 11:30 Loperamide HCl (Imodium Cap) 2 mg QID PRN PO loose stool Last administered on 06:00; Admin Dose 2 MG; Start 03/06/16 at 06:00 Pantoprazole (Protonix Tab) 40 mg DAILY@06 PO Last administered on 03/11/16 06 :00; Admin Dose 40 MG; Start 03/08/16 at 06:00 Heparin Sodium (Porcine) (Heparin (5000 Units/0.5 ml)) 5,000 unit BID SC Last administered on 03/10/16 21:38; Admin Dose 5,000 UNIT; Start 03/08/16 at 21:00 Gentamicin Sulfate (Gentamicin Iv Per Pharmacy) GENTAMICIN PER PHARMACY NOTE XX ; Start 03/08/16 at 15:30 Fluconazole (Diflucan) 100 mg DAILY PO Last administered on 03/10/16 08:29; Admin Dose 100 MG; Start 03/09/16 at 09:00 Methylprednisolone Sodium Succinate (Solu-Medrol) 60 mg Q8 IV Last administered on 03/11/16 06:00; Admin Dose 60 MG; Start 03/09/16 at 14:00 Mupirocin (Bactroban) 1 applic BID TOP Last administered on 03/10/16 21:38; Admin Dose 1 APPLIC; Start 03/10/16 at 21:00 SUNSHINE RAVI NP Mar 11, 2016 10:48
--- NOTE | 2016-03-11 11:10 | CONS ---
Date/Time of Note Date/Time of Note DATE: 03/11/16 TIME: 11:09 Consult Date/Type/Reason Admit Date/Time Mar 04, 2016 at 14:42 Initial Consult Date 03/04/16 Objective Vital Signs Date Time Temp Pulse Resp B/P Pulse Ox O2 Delivery O2 Flow Rate FiO2 03/11/16 10:00 53 19 03/11/16 10:00 Nasal Cannula 3.0 03/11/16 09:03 94 03/11/16 08:14 98.0 133/67 03/09/16 10:04 50 Intake and Output 03/10/16 03/10/16 03/11/16 15:00 23:00 07:00 Intake Total 840 ml 200 ml Output Total 350 ml Balance 490 ml 200 ml Results/Medications Result Diagram: 03/11/16 0610 03/11/16 0610 Results 24 hrs Laboratory Tests Test 03/11/16 06:10 Anion Gap 17 H Anisocytosis 1+ Basophils # 0.0 Basophils % 0.0 Blood Morphology Comment Blood Urea Nitrogen 61 H Calcium Level 8.4 Carbon Dioxide Level 23 Chloride Level 92 L Creatinine 3.28 H Eosinophils # 0.0 Eosinophils % 0.1 Glucose Level 125 Hematocrit 27.2 L Hemoglobin 9.1 L Lymphocytes # 0.6 L Lymphocytes % 7.0 L Mean Corpuscular Hemoglobin 34.2 H Mean Corpuscular Hemoglobin Concent 33.4 Mean Corpuscular Volume 102.2 H Mean Platelet Volume 8.6 Monocytes # 0.2 L Monocytes % 1.7 Neutrophils # 8.4 H Neutrophils % 91.2 H Nucleated Red Blood Cells # 0.0 Nucleated Red Blood Cells % 0.0 Ovalocytes FEW Platelet Count 184 Potassium Level 4.4 Red Blood Count 2.66 L Red Cell Distribution Width 15.0 H Sodium Level 128 L White Blood Count 9.2 # Medications Current Medications Ondansetron HCl (Zofran Inj) 4 mg Q6H PRN IV NAUSEA AND/OR VOMITING; Start 03/04 at 11:30 Nitroglycerin (Nitroglycerin (Sl Tab) 0.4 Mg) 1 tab Q5M PRN SL CHEST PAIN; Start 03/04/16 at 11:30 Acetaminophen (Tylenol Supp) 650 mg Q4H PRN [place] PAIN LEVEL 1-3 OR FEVER; Start 03/04/16 at 11:30 Morphine Sulfate (morphine) 2 mg Q4H PRN IV PAIN LEVEL 7-10; Start 03/04/16 at 11:30 Lorazepam (Ativan) 1 mg Q2H PRN IV ANXIETY; Start 03/04/16 at 11:30 Mometasone Furoate (Asmanex) 1 puff BID INH Last administered on 03/10/16 21: 36; Admin Dose 1 PUFF; Start 03/04/16 at 21:00 Aspirin (Halfprin) 81 mg DAILY PO Last administered on 03/10/16 08:30; Admin Dose 81 MG; Start 03/05/16 at 09:00 Furosemide (Lasix) 20 mg DAILY@06 PO Last administered on 03/11/16 06:01; Admin Dose 20 MG; Start 03/05/16 at 06:00 Montelukast Sodium (Singulair) 10 mg QHS PO Last administered on 03/10/16 22: 34; Admin Dose 10 MG; Start 03/04/16 at 21:00 Atorvastatin Calcium (Lipitor) 80 mg DAILY@21 PO Last administered on 21:34; Admin Dose 80 MG; Start 03/04/16 at 21:00 Carvedilol (Coreg) 6.25 mg BID PO Last administered on 03/10/16 21:36; Admin Dose 6.25 MG; Start 03/04/16 at 21:00 Hydralazine HCl (Apresoline) 25 mg TID PO Last administered on 03/10/16 21:35 ; Admin Dose 25 MG; Start 03/04/16 at 21:00 Isosorbide Dinitrate (Isordil) 5 mg TID PO Last administered on 03/10/16 21:35 ; Admin Dose 5 MG; Start 03/04/16 at 21:00 Lisinopril (Zestril) 2.5 mg DAILY PO Last administered on 03/10/16 08:30; Admin Dose 2.5 MG; Start 03/05/16 at 09:00 Clopidogrel Bisulfate (plaVIX) 75 mg DAILY PO Last administered on 03/10/16 08 :30; Admin Dose 75 MG; Start 03/05/16 at 09:00 Acetaminophen (Tylenol Tab) 650 mg Q4H PRN PO PAIN AND OR ELEVATED TEMP Last administered on 03/10/16 21:35; Admin Dose 650 MG; Start 03/05/16 at 11:30 Loperamide HCl (Imodium Cap) 2 mg QID PRN PO loose stool Last administered on 06:00; Admin Dose 2 MG; Start 03/06/16 at 06:00 Pantoprazole (Protonix Tab) 40 mg DAILY@06 PO Last administered on 03/11/16 06 :00; Admin Dose 40 MG; Start 03/08/16 at 06:00 Heparin Sodium (Porcine) (Heparin (5000 Units/0.5 ml)) 5,000 unit BID SC Last administered on 03/10/16 21:38; Admin Dose 5,000 UNIT; Start 03/08/16 at 21:00 Gentamicin Sulfate (Gentamicin Iv Per Pharmacy) GENTAMICIN PER PHARMACY NOTE XX ; Start 03/08/16 at 15:30 Fluconazole (Diflucan) 100 mg DAILY PO Last administered on 03/10/16 08:29; Admin Dose 100 MG; Start 03/09/16 at 09:00 Methylprednisolone Sodium Succinate (Solu-Medrol) 60 mg Q8 IV Last administered on 03/11/16 06:00; Admin Dose 60 MG; Start 03/09/16 at 14:00 Mupirocin (Bactroban) 1 applic BID TOP Last administered on 03/10/16 21:38; Admin Dose 1 APPLIC; Start 03/10/16 at 21:00 Assessment/Plan Chief Complaint/Hosp Course Patient is 75-year-old female with past medical history of coronary artery disease status post bypass surgery, severe peripheral vascular disease status post aortofemoral bypass, ESRD on hemodialysis, hypertension, dyslipidemia who presented to ER with a complaining of shortness of breath and pulmonary edema found to have elevated troponin with EKG changes was initially meetings [place] criteria on left bundle-branch block but patient was at that time tachycardic source STEMI was not called but H and was high risk non-ST elevation myocardial infarction with some EKG changes and troponin of 2.5 with significant coronary artery disease risk and history with 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
[2016-03-11] MEDS: MOMETASONE 0.24 GM INHALER INH SCH ×2 (11:17→21:15)
[2016-03-11] MEDS: ASPIRIN (EC) 81 MG TAB PO SCH (11:19)
[2016-03-11] MEDS: FLUCONAZOLE 100 MG TAB PO SCH (11:19)
[2016-03-11] MEDS: ISOSORBIDE DINITRATE 10 MG TAB PO SCH ×3 (11:19→21:14)
[2016-03-11] MEDS: CLOPIDOGREL 75 MG TAB PO SCH (11:20)
[2016-03-11] MEDS: MUPIROCIN 2% 22 GM OINT TOP SCH ×2 (11:21→21:15)
[2016-03-11] MEDS: HEPARIN 5,000 UNIT/0.5 ML SYG SC SCH ×2 (11:24→21:33)
--- NOTE | 2016-03-11 11:52 | CONS ---
Date/Time of Note Date/Time of Note DATE: 03/11/16 TIME: 11:50 Consult Date/Type/Reason Admit Date/Time Mar 04, 2016 at 14:42 Initial Consult Date 03/04/16 Type of Consultation: Pulm Subjective Comfortable, less short of breath Objective Vital Signs Date Time Temp Pulse Resp B/P Pulse Ox O2 Delivery O2 Flow Rate FiO2 03/11/16 11:14 109/46 03/11/16 10:00 53 19 03/11/16 10:00 Nasal Cannula 3.0 03/11/16 09:03 94 03/11/16 08:14 98.0 03/09/16 10:04 50 Intake and Output 03/10/16 03/10/16 03/11/16 15:00 23:00 07:00 Intake Total 840 ml 200 ml Output Total 350 ml Balance 490 ml 200 ml PHYSICAL EXAMINATION: VITAL SIGNS: As above HEENT: Pupils are equal and reactive to light. NECK: Supple, no JVD noted, no cervical lymphadenopathy noted, no carotid bruits heard. LUNGS: Fair breath sounds bilaterally. Bilateral rales CARDIOVASCULAR: S1, S2 normal. ABDOMEN: Soft, nontender. No organomegaly or masses noted. EXTREMITIES: No clubbing or cyanosis noted. NEUROLOGIC: No changes. Results/Medications Result Diagram: 03/11/16 0610 03/11/16 0610 Results 24 hrs Laboratory Tests Test 03/11/16 06:10 Anion Gap 17 H Anisocytosis 1+ Basophils # 0.0 Basophils % 0.0 Blood Morphology Comment Blood Urea Nitrogen 61 H Calcium Level 8.4 Carbon Dioxide Level 23 Chloride Level 92 L Creatinine 3.28 H Eosinophils # 0.0 Eosinophils % 0.1 Glucose Level 125 Hematocrit 27.2 L Hemoglobin 9.1 L Lymphocytes # 0.6 L Lymphocytes % 7.0 L Mean Corpuscular Hemoglobin 34.2 H Mean Corpuscular Hemoglobin Concent 33.4 Mean Corpuscular Volume 102.2 H Mean Platelet Volume 8.6 Monocytes # 0.2 L Monocytes % 1.7 Neutrophils # 8.4 H Neutrophils % 91.2 H Nucleated Red Blood Cells # 0.0 Nucleated Red Blood Cells % 0.0 Ovalocytes FEW Platelet Count 184 Potassium Level 4.4 Red Blood Count 2.66 L Red Cell Distribution Width 15.0 H Sodium Level 128 L White Blood Count 9.2 # Medications Current Medications Ondansetron HCl (Zofran Inj) 4 mg Q6H PRN IV NAUSEA AND/OR VOMITING; Start 03/04 at 11:30 Nitroglycerin (Nitroglycerin (Sl Tab) 0.4 Mg) 1 tab Q5M PRN SL CHEST PAIN; Start 03/04/16 at 11:30 Acetaminophen (Tylenol Supp) 650 mg Q4H PRN [place] PAIN LEVEL 1-3 OR FEVER; Start 03/04/16 at 11:30 Morphine Sulfate (morphine) 2 mg Q4H PRN IV PAIN LEVEL 7-10; Start 03/04/16 at 11:30 Lorazepam (Ativan) 1 mg Q2H PRN IV ANXIETY; Start 03/04/16 at 11:30 Mometasone Furoate (Asmanex) 1 puff BID INH Last administered on 03/11/16 11: 17; Admin Dose 1 PUFF; Start 03/04/16 at 21:00 Aspirin (Halfprin) 81 mg DAILY PO Last administered on 03/11/16 11:19; Admin Dose 81 MG; Start 03/05/16 at 09:00 Furosemide (Lasix) 20 mg DAILY@06 PO Last administered on 03/11/16 06:01; Admin Dose 20 MG; Start 03/05/16 at 06:00 Montelukast Sodium (Singulair) 10 mg QHS PO Last administered on 03/10/16 22: 34; Admin Dose 10 MG; Start 03/04/16 at 21:00 Atorvastatin Calcium (Lipitor) 80 mg DAILY@21 PO Last administered on 21:34; Admin Dose 80 MG; Start 03/04/16 at 21:00 Carvedilol (Coreg) 6.25 mg BID PO Last administered on 03/10/16 21:36; Admin Dose 6.25 MG; Start 03/04/16 at 21:00 Hydralazine HCl (Apresoline) 25 mg TID PO Last administered on 03/10/16 21:35 ; Admin Dose 25 MG; Start 03/04/16 at 21:00 Isosorbide Dinitrate (Isordil) 5 mg TID PO Last administered on 03/11/16 11:19 ; Admin Dose 5 MG; Start 03/04/16 at 21:00 Lisinopril (Zestril) 2.5 mg DAILY PO Last administered on 03/10/16 08:30; Admin Dose 2.5 MG; Start 03/05/16 at 09:00 Clopidogrel Bisulfate (plaVIX) 75 mg DAILY PO Last administered on 03/11/16 11 :20; Admin Dose 75 MG; Start 03/05/16 at 09:00 Acetaminophen (Tylenol Tab) 650 mg Q4H PRN PO PAIN AND OR ELEVATED TEMP Last administered on 03/10/16 21:35; Admin Dose 650 MG; Start 03/05/16 at 11:30 Loperamide HCl (Imodium Cap) 2 mg QID PRN PO loose stool Last administered on 06:00; Admin Dose 2 MG; Start 03/06/16 at 06:00 Pantoprazole (Protonix Tab) 40 mg DAILY@06 PO Last administered on 03/11/16 06 :00; Admin Dose 40 MG; Start 03/08/16 at 06:00 Heparin Sodium (Porcine) (Heparin (5000 Units/0.5 ml)) 5,000 unit BID SC Last administered on 03/11/16 11:24; Admin Dose 5,000 UNIT; Start 03/08/16 at 21:00 Gentamicin Sulfate (Gentamicin Iv Per Pharmacy) GENTAMICIN PER PHARMACY NOTE XX ; Start 03/08/16 at 15:30 Fluconazole (Diflucan) 100 mg DAILY PO Last administered on 03/11/16 11:19; Admin Dose 100 MG; Start 03/09/16 at 09:00 Methylprednisolone Sodium Succinate (Solu-Medrol) 60 mg Q8 IV Last administered on 03/11/16 06:00; Admin Dose 60 MG; Start 03/09/16 at 14:00 Mupirocin (Bactroban) 1 applic BID TOP Last administered on 03/11/16 11:21; Admin Dose 1 APPLIC; Start 03/10/16 at 21:00 Assessment/Plan Chief Complaint/Hosp Course IMPRESSION: 1. Status post non-ST elevation myocardial infarction, status post percutaneous coronary intervention with stent placement. 2. History of coronary artery disease with coronary artery bypass graft in the past. 3. End-stage renal disease on hemodialysis. 4. Status post acute hypoxemic renal failure. Pulmonary edema with volume overload, possible component of acute COPD exacerbation 5. Hypertension. 6. Urinary tract infection. RECOMMENDATIONS: 1. Continue oxygen and taper as tolerated. 2. Hemodialysis and ultrafiltration as per nephrology. 3. Empiric trial of steroids 4. Continue bronchodilators Dc planning ok from pulmonary standpoint. will likely need snf placement. Problems: RAFIA WRIGHT MD, [facility] Mar 11, 2016 11:52
[2016-03-11] MEDS: ACETAMINOPHEN 325 MG TAB PO PRN ×2 (12:05→18:52)
--- NOTE | 2016-03-11 17:47 | DS ---
DATE OF ADMISSION: 03/04/2016 DATE OF DISCHARGE: 03/11/2016 CONSULTANTS: 1. Dr. Alex Woods. 2. Dr. Ras Barajas. 3. Dr. Herberth Hameed. 4. Dr. Douglas Limon. 5. Dr. George Shen. 6. Dr. Laith Rosa. 7. Dr. Jamel Hess. DIAGNOSES: 1. Non-ST elevation myocardial infarction. The patient is status post percutaneous coronary interv ention with stent placement in the left main and ostial lesion. Continue antiplatelet medication, b eta blockers, statin. 2. History of coronary artery disease with coronary artery bypass graft as above. 3. Healthcare-acquired pneumonia. Continue antibiotics. Continue bronchodilator. 4. Acute respiratory failure, likely secondary to pneumonia versus fluid overload, status post hemo dialysis. Continue oxygen, off BiPAP at this time. 5. Sepsis, secondary to urinary tract infection and possible pneumonia, improving. Infectious dise ase doctor was consulted. Continue current antibiotics. 6. End-stage renal disease on hemodialysis. Nephrology following. 7. Essential hypertension, well controlled on medical management. 8. Methicillin resistant Staphylococcus aureus urinary tract infection plus Evi and Enterococcu s on vancomycin, gentamicin and fluconazole. 9. Chronic obstructive pulmonary disease with history of smoking. Continue prednisone, Singulair, breathing treatment. 10. Anemia of chronic disease. Continue Epogen. 11. Hyponatremia secondary to end-stage renal disease on hemodialysis. LABORATORY: WBC 9.2, hemoglobin 9.1, hematocrit 27.2, platelets 184, MCV 102.2. Sodium 128, potass ium 4.4, chloride 92, bicarbonate 23, BUN 61, creatinine 3.28, glucose 125. Hemoglobin A1c 5.6. Tr iglycerides 70, total cholesterol 105, LDL 48, HDL 43. Urine culture positive for enterococcus spec ies, Evi albicans, methicillin-resistant Staphylococcus aureus, multidrug resistant organism. S tool culture, methicillin-resistant Staphylococcus aureus, vancomycin-resistant Enterococcus colifor m. MEDICATIONS: 1. Tylenol. 2. Aspirin 81 mg. 3. Lipitor 80 mg. 4. Coreg 6.25 mg 5. Plavix 75 mg 6. Epogen with hemodialysis. 7. Fluconazole 100 mg. 8. Lasix 20 mg. 9. Gentamicin as per pharmacy. 10. Heparin 5000 units. 11. Hydralazine 25 mg. 12. Atrovent. 13. Spiriva. 14. Isordil. 15. Xopenex. 16. Zestril 2.5 mg. 17. Prednisone 20 mg. 18. Asmanex. 19. Singulair. 20. Mupirocin. 21. Nitroglycerin 0.4 mg. 22. Protonix 40 mg. 23. Vancomycin as per pharmacy. 24. Zofran 4 mg. 25. [place] 5/325. DIET: Cardiac, Renal. FOLLOWUP: 1. Follow up with cardiology in 2 to 3 weeks. 2. Follow with nephrology for hemodialysis. 3. Oxygen via nasal cannula to keep oxygen greater than 94%. 4. PT, OT evaluate and treat. PROCEDURES: 1. On 03/04/2016. Selective right and left coronary angiography, bypass coronary angiography with GARCIA angiography, selective right femoral angiography, successful Angio-Seal placement of the right femoral, selective left iliac angiography, complex intervention with PCI of the left main with 2.5 x 12 mm drug-eluting stent. 2. A 2D echocardiogram which showed normal left size. Mild concentric left ventricular hypertrophy . Ejection fraction visually estimated at 30%. Stage II diastolic dysfunction. Multiple segmental wall motion abnormalities. HOSPITAL COURSE: This is a 75-year-old female with past medical history of essential hypertension, CAD, previous CABG, COPD, dyslipidemia, healthcare-associated pneumonia, congestive heart failure, m ixed diastolic and systolic congestive heart failure, who presented to [facility] on 03/04/2016 secondary to having shortness of breath. The patient has been complaining of shortnes s of breath x2 weeks' duration, and was previously hospitalized at [facility] and receive d IV antibiotics. She discharged from the [facility] on 02/28/2016. She arrived home, s he states she had progressive shortness of breath. She came to [facility] for fur ther evaluation. Upon arrival evaluation in the ER 03/04/2016, patient showed to have pulmonary tito ma, suspected superimposed pneumonia with mid and lower lung zones. She also had blood CBC, which showed leukocytosis, temperature 102.7. Troponin 7. Cardiology was c onsulted. The patient undergo PCI and stent placement in complex left main artery. She did tolerat e the procedure well and was taken to recovery room and then was admitted to the ICU. Clothes Presser were consulted secondary to respiratory distress. The patient was on BiPAP. She was essentially w eaned off BiPAP continued on hemodialysis, has been off BiPAP. Nephrology was consulted secondary t o end-stage renal disease on hemodialysis. The patient continued to be monitored and was transferre d to telemetry floor which she was found to have MRSA in her urine, VRE in her stool. [facility]. The patient, despite being on hemodialysis, had to be on broad spectrum IV antibiotics since patient was found to have multidrug resistant organism, was placed on vancomyc in and gentamicin as per pharmacy and the patient continued to obtain her hemodialysis. The patient had an episode of respiratory distress on 03/09/2016, which she was placed on BiPAP agai n. At this time, the patient is off BiPAP and tolerating oxygen via nasal cannula. Today the patie nt's vitals are stable with temperature of 98, pulse of 53, respiration 19, blood pressure 133/67, o xygen saturation of 94% on 3 liter. I have spoken to her sister regarding the disposition and after speaking to Ms. Natasha Titus at [phone] and discussing the disposition, we have decided the patient should be transferred to [facility] facility and I agree with that decision. At this time, I will ask the case management manager to set up [facility] facility of her choice so she can contin ue her IV antibiotic, breathing treatment and have her followup with her doctors. CONDITION AT TIME OF DISCHARGE: Stable. Dictated By: XIANG YING/DUTCH Conf#: [id number] DID#: [id number]
[2016-03-11] MEDS ORDERED: [UNRECOGNIZED DRUG - REMARK] XX SCH (18:30)
[2016-03-11] MEDS: GENTAMICIN 60 MG in SOD CHLORIDE 0.9% 50 ML IVPB SCH (18:50)
[2016-03-11] MEDS: ATORVASTATIN 80 MG TAB PO SCH (21:13)
[2016-03-11] MEDS: MONTELUKAST 10 MG TAB PO SCH (21:13)
[2016-03-12] VITALS (23 sets, daily range): BP systolic 96–158; BP diastolic 46–68; PULSE 44–75; RESP 17–20
[2016-03-12] MEDS: IPRATROPIUM (NEB) 0.5 MG/2.5 ML AMP NEB SCH ×4 (01:23→19:06)
[2016-03-12] MEDS: LEVALBUTEROL (NEB) 1.25 MG/0.5 ML AMP HHN SCH ×4 (01:23→19:06)
[2016-03-12] MEDS: EPOETIN 10000 UNITS/1 ML INJ (ESRD) SC SCH ×2 (01:30→16:26)
[2016-03-12] MEDS: PANTOPRAZOLE (EC) 40 MG TAB PO SCH (06:29)
[2016-03-12] MEDS: FUROSEMIDE 20 MG TAB PO SCH (06:30)
[2016-03-12] MEDS: METHYLPREDNISOLONE 125 MG INJ IV SCH ×3 (06:30→20:58)
[2016-03-12] MEDS: LOPERAMIDE 2 MG CAP PO PRN ×4 (06:50→20:58)
[2016-03-12] MEDS: MOMETASONE 0.24 GM INHALER INH SCH ×2 (08:42→20:56)
[2016-03-12] MEDS: MUPIROCIN 2% 22 GM OINT TOP SCH ×2 (08:42→20:58)
[2016-03-12] MEDS: HEPARIN 5,000 UNIT/0.5 ML SYG SC SCH ×2 (08:48→21:08)
[2016-03-12] MEDS: FLUCONAZOLE 100 MG TAB PO SCH (08:51)
[2016-03-12] MEDS: CLOPIDOGREL 75 MG TAB PO SCH (08:51)
[2016-03-12] MEDS: ASPIRIN (EC) 81 MG TAB PO SCH (08:51)
[2016-03-12] MEDS: LISINOPRIL 5 MG TAB PO SCH (08:52)
[2016-03-12] MEDS: ISOSORBIDE DINITRATE 10 MG TAB PO SCH ×3 (08:52→20:57)
--- NOTE | 2016-03-12 09:14 | PN ---
Date/Time of Note Date/Time of Note DATE: 03/12/16 TIME: 09:07 Assessment/Plan VTE Prophylaxis VTE Prophylaxis Intervention: SCD's Lines/Catheters IV [facility]ter Type [facility]from [facility] Urinary Cath still in place: No Assessment/Plan Chief Complaint/Hosp Course DIAGNOSES: 1. Non-ST elevation myocardial infarction. The patient is status post percutaneous coronary intervention with stent placement in the left main and ostial lesion. Continue antiplatelet medication, beta blockers, statin. 2. History of coronary artery disease with coronary artery bypass graft as above. 3. Healthcare-acquired pneumonia. Continue antibiotics. Continue bronchodilator. 4. Acute respiratory failure, likely secondary to pneumonia versus fluid overload, status post hemodialysis. Continue oxygen, off BiPAP at this time. 5. Sepsis, secondary to urinary tract infection and possible pneumonia, improving. Infectious disease doctor was consulted. Continue current antibiotics. 6. End-stage renal disease on hemodialysis. Nephrology following. 7. Essential hypertension, well controlled on medical management. 8. Methicillin resistant Staphylococcus aureus urinary tract infection plus Evi and Enterococcus on vancomycin, gentamicin and fluconazole. 9. Chronic obstructive pulmonary disease with history of smoking. Continue prednisone, Singulair, breathing treatment. 10. Anemia of chronic disease. Continue Epogen. 11. Hyponatremia secondary to end-stage renal disease on hemodialysis. Plan to [facility] bed is available Please see my discharge summary which was done on 03/01/2016 Problems: Subjective 24 Hr Interval Summary Free Text/Dictation Patient denies any chest pain or shortness of breath Tolerating oral intake Waiting for placement Exam/Review of Systems Vital Signs Vitals Vital Signs Date Time Temp Pulse Resp B/P Pulse Ox O2 Delivery O2 Flow Rate FiO2 03/12/16 08:34 58 03/12/16 08:09 18 98 Nasal Cannula 3.0 03/12/16 08:08 98.3 141/56 03/09/16 10:04 50 Intake and Output 03/11/16 03/11/16 03/12/16 15:00 23:00 07:00 Intake Total 500 ml 103 ml Output Total 3500 ml Balance -3000 ml 103 ml Exam General: The patient is well-developed, Not in acute distress. HEENT: Atraumatic, normocephalic. The pupils are equal and round . Neck: Supple with full range of motion. Chest: Normal expansion of the thorax during inspiration Lungs: Clear to auscultation bilaterally Heart: Normal S1-S2, Regular rhythm and rate. Abdomen: Soft , nontender, nondistended , bowel sounds are present. Extremities: Normal to inspection, no edema no cyanosis Neurologic: Normal mental status,The patient is awake, alert and oriented . Results Result Diagram: 03/11/16 0610 03/11/16 0610 Medications Medications Current Medications Ondansetron HCl (Zofran Inj) 4 mg Q6H PRN IV NAUSEA AND/OR VOMITING; Start 03/04 at 11:30 Nitroglycerin (Nitroglycerin (Sl Tab) 0.4 Mg) 1 tab Q5M PRN SL CHEST PAIN; Start 03/04/16 at 11:30 Acetaminophen (Tylenol Supp) 650 mg Q4H PRN IN PAIN LEVEL 1-3 OR FEVER; Start 03/04/16 at 11:30 Morphine Sulfate (morphine) 2 mg Q4H PRN IV PAIN LEVEL 7-10; Start 03/04/16 at 11:30 Lorazepam (Ativan) 1 mg Q2H PRN IV ANXIETY; Start 03/04/16 at 11:30 Mometasone Furoate (Asmanex) 1 puff BID INH Last administered on 03/12/16 08: 42; Admin Dose 1 PUFF; Start 03/04/16 at 21:00 Aspirin (Halfprin) 81 mg DAILY PO Last administered on 03/12/16 08:51; Admin Dose 81 MG; Start 03/05/16 at 09:00 Furosemide (Lasix) 20 mg DAILY@06 PO Last administered on 03/12/16 06:30; Admin Dose 20 MG; Start 03/05/16 at 06:00 Montelukast Sodium (Singulair) 10 mg QHS PO Last administered on 03/11/16 21: 13; Admin Dose 10 MG; Start 03/04/16 at 21:00 Atorvastatin Calcium (Lipitor) 80 mg DAILY@21 PO Last administered on 21:13; Admin Dose 80 MG; Start 03/04/16 at 21:00 Carvedilol (Coreg) 6.25 mg BID PO Last administered on 03/12/16 08:50; Admin Dose 6.25 MG; Start 03/04/16 at 21:00 Hydralazine HCl (Apresoline) 25 mg TID PO Last administered on 03/12/16 08:51 ; Admin Dose 25 MG; Start 03/04/16 at 21:00 Isosorbide Dinitrate (Isordil) 5 mg TID PO Last administered on 03/12/16 08:52 ; Admin Dose 5 MG; Start 03/04/16 at 21:00 Lisinopril (Zestril) 2.5 mg DAILY PO Last administered on 03/10/16 08:30; Admin Dose 2.5 MG; Start 03/05/16 at 09:00 Clopidogrel Bisulfate (plaVIX) 75 mg DAILY PO Last administered on 03/12/16 08 :51; Admin Dose 75 MG; Start 03/05/16 at 09:00 Acetaminophen (Tylenol Tab) 650 mg Q4H PRN PO PAIN AND OR ELEVATED TEMP Last administered on 03/11/16 18:52; Admin Dose 650 MG; Start 03/05/16 at 11:30 Loperamide HCl (Imodium Cap) 2 mg QID PRN PO loose stool Last administered on 06:50; Admin Dose 2 MG; Start 03/06/16 at 06:00 Pantoprazole (Protonix Tab) 40 mg DAILY@06 PO Last administered on 03/12/16 06 :29; Admin Dose 40 MG; Start 03/08/16 at 06:00 Heparin Sodium (Porcine) (Heparin (5000 Units/0.5 ml)) 5,000 unit BID SC Last administered on 03/12/16 08:48; Admin Dose 5,000 UNIT; Start 03/08/16 at 21:00 Gentamicin Sulfate (Gentamicin Iv Per Pharmacy) GENTAMICIN PER PHARMACY NOTE XX ; Start 03/08/16 at 15:30 Fluconazole (Diflucan) 100 mg DAILY PO Last administered on 03/12/16 08:51; Admin Dose 100 MG; Start 03/09/16 at 09:00 Methylprednisolone Sodium Succinate (Solu-Medrol) 60 mg Q8 IV Last administered on 03/12/16 06:30; Admin Dose 60 MG; Start 03/09/16 at 14:00 Mupirocin (Bactroban) 1 applic BID TOP Last administered on 03/12/16 08:42; Admin Dose 1 APPLIC; Start 03/10/16 at 21:00 XIANG ALLEN MD Mar 12, 2016 09:13
--- NOTE | 2016-03-12 12:49 | CONS ---
Date/Time of Note Date/Time of Note DATE: 03/12/16 TIME: 12:48 Consult Date/Type/Reason Admit Date/Time Mar 04, 2016 at 14:42 Initial Consult Date 03/04/16 Type of Consultation: card Objective Vital Signs Date Time Temp Pulse Resp B/P Pulse Ox O2 Delivery O2 Flow Rate FiO2 03/12/16 12:31 75 20 03/12/16 11:51 98.1 132/59 98 03/12/16 08:09 Nasal Cannula 3.0 03/09/16 10:04 50 Intake and Output 03/11/16 03/11/16 03/12/16 15:00 23:00 07:00 Intake Total 500 ml 103 ml Output Total 3500 ml Balance -3000 ml 103 ml Results/Medications Result Diagram: 03/11/1610 03/11/16 0610 Medications Current Medications Ondansetron HCl (Zofran Inj) 4 mg Q6H PRN IV NAUSEA AND/OR VOMITING; Start 03/04 at 11:30 Nitroglycerin (Nitroglycerin (Sl Tab) 0.4 Mg) 1 tab Q5M PRN SL CHEST PAIN; Start 03/04/16 at 11:30 Acetaminophen (Tylenol Supp) 650 mg Q4H PRN [place] PAIN LEVEL 1-3 OR FEVER; Start 03/04/16 at 11:30 Morphine Sulfate (morphine) 2 mg Q4H PRN IV PAIN LEVEL 7-10; Start 03/04/16 at 11:30 Lorazepam (Ativan) 1 mg Q2H PRN IV ANXIETY; Start 03/04/16 at 11:30 Mometasone Furoate (Asmanex) 1 puff BID INH Last administered on 03/12/16 08: 42; Admin Dose 1 PUFF; Start 03/04/16 at 21:00 Aspirin (Halfprin) 81 mg DAILY PO Last administered on 03/12/16 08:51; Admin Dose 81 MG; Start 03/05/16 at 09:00 Furosemide (Lasix) 20 mg DAILY@06 PO Last administered on 03/12/16 06:30; Admin Dose 20 MG; Start 03/05/16 at 06:00 Montelukast Sodium (Singulair) 10 mg QHS PO Last administered on 03/11/16 21: 13; Admin Dose 10 MG; Start 03/04/16 at 21:00 Atorvastatin Calcium (Lipitor) 80 mg DAILY@21 PO Last administered on 21:13; Admin Dose 80 MG; Start 03/04/16 at 21:00 Carvedilol (Coreg) 6.25 mg BID PO Last administered on 03/12/16 08:50; Admin Dose 6.25 MG; Start 03/04/16 at 21:00 Hydralazine HCl (Apresoline) 25 mg TID PO Last administered on 03/12/16 08:51 ; Admin Dose 25 MG; Start 03/04/16 at 21:00 Isosorbide Dinitrate (Isordil) 5 mg TID PO Last administered on 03/12/16 08:52 ; Admin Dose 5 MG; Start 03/04/16 at 21:00 Lisinopril (Zestril) 2.5 mg DAILY PO Last administered on 03/10/16 08:30; Admin Dose 2.5 MG; Start 03/05/16 at 09:00 Clopidogrel Bisulfate (plaVIX) 75 mg DAILY PO Last administered on 03/12/16 08 :51; Admin Dose 75 MG; Start 03/05/16 at 09:00 Acetaminophen (Tylenol Tab) 650 mg Q4H PRN PO PAIN AND OR ELEVATED TEMP Last administered on 03/11/16 18:52; Admin Dose 650 MG; Start 03/05/16 at 11:30 Loperamide HCl (Imodium Cap) 2 mg QID PRN PO loose stool Last administered on 06:50; Admin Dose 2 MG; Start 03/06/16 at 06:00 Pantoprazole (Protonix Tab) 40 mg DAILY@06 PO Last administered on 03/12/16 06 :29; Admin Dose 40 MG; Start 03/08/16 at 06:00 Heparin Sodium (Porcine) (Heparin (5000 Units/0.5 ml)) 5,000 unit BID SC Last administered on 03/12/16 08:48; Admin Dose 5,000 UNIT; Start 03/08/16 at 21:00 Gentamicin Sulfate (Gentamicin Iv Per Pharmacy) GENTAMICIN PER PHARMACY NOTE XX ; Start 03/08/16 at 15:30 Fluconazole (Diflucan) 100 mg DAILY PO Last administered on 03/12/16 08:51; Admin Dose 100 MG; Start 03/09/16 at 09:00 Methylprednisolone Sodium Succinate (Solu-Medrol) 60 mg Q8 IV Last administered on 03/12/16 06:30; Admin Dose 60 MG; Start 03/09/16 at 14:00 Mupirocin (Bactroban) 1 applic BID TOP Last administered on 03/12/16 08:42; Admin Dose 1 APPLIC; Start 03/10/16 at 21:00 Assessment/Plan Chief Complaint/Hosp Course Patient is 75-year-old female with past medical history of coronary artery disease status post bypass surgery, severe peripheral vascular disease status post aortofemoral bypass, ESRD on hemodialysis, hypertension, dyslipidemia who presented to ER with a complaining of shortness of breath and pulmonary edema found to have elevated troponin with EKG changes was initially meetings Scarboso criteria on left bundle-branch block but patient was at that time tachycardic source STEMI was not called but H and was high risk non-ST elevation myocardial infarction with some EKG changes and troponin of 2.5 with significant coronary artery disease risk and history with the patient to urgently to cardiac Fire Protection Designer Problems: Additional Assessment/Plan Stable cardiac bautista d/c planning for NSF d/w patient. ARTURO REINOSO MD Mar 12, 2016 12:49
[2016-03-12] MEDS: ACETAMINOPHEN 325 MG TAB PO PRN (13:18)
--- NOTE | 2016-03-12 13:34 | CONS ---
Date/Time of Note Date/Time of Note DATE: 03/12/16 TIME: 13:27 Assessment/Plan Assessment/Plan Chief Complaint/Hosp Course ID PROGRESS NOTE TOTAL ABX DAY # => Vanco IV, Gent, Diflucan 24H INTERVAL SUMMARY * Stable - s/p HD this am, no new issues * No fevers,. WBC normal range * Chest x-ray revealed no significant change. The patient had a pulmonary edema and/or inflammatory infiltrate, worse at the bases, particularly at the left base. * Repeat Urine w/low colony counts yeast + mixed pathogens ?contaminants vs asymptomatic bacteriuria Specimen: [id number] Status: Resulted Delon: 03/10/16-1529 Rcvd: 03/10 Source: CLEAN CATC Sp Descrip: s Microbiology URINE CULTURE Final Organism 1 RUY ALBICANS COLONY COUNT 50,000 - 60,000 CFU/ml Organism 2 MIXED GRAM POSITIVE ORGANISMS COLONY COUNT 50,000 - 60,000 CFU/ml PHYSICAL EXAMINATION: GENERAL: 75 yo F, VSS, NAD, A/A/O HEENT: Unremarkable NECK: Supple, trachea midline. CHEST: Rise symmetrical without dyspnea HEART: RRR ABDOMEN: Soft EXTREMITIES: Warm ID ASSESSMENT: 75 yo F admit with: 1. Systemic inflammatory response syndrome with leukocytosis secondary to #2. 2. Polymicrobial urinary tract infection w/(+)MRSA,(+)Enterococcus,(+)C> Albicans * 03/09/16 repeat Urine: Repeat Urine w/low colony counts yeast + mixed pathogens ?contaminants vs asymptomatic bacteriuria 3. End-stage renal disease, hemodialysis dependent. 4. Pulmonary edema with fluid overload. 5. History of coronary artery disease, non-ST elevation myocardial infarction, and status post percutaneous transluminal coronary angioplasty with stent placement. 6. History of coronary artery bypass graft. (+)MRSA Nares Colonization (+)VRE Stool Colonization INVASIVES: *R-chest PermCath. CURRENT ABX: # => Vanco IV #8, Gent 5, Diflucan s/p ID RECOMMENDATIONS: CONTINUE Current ABX => anticipate 14 days total Vanco IV for MRSA/Enterococcal complicated UTI Initiated on Bactroban->Nares and Hibiclens bath DC to SNF on ABX until 03/18/16 . . Problems: Consultation Date/Type/Reason Admit Date/Time Mar 04, 2016 at 14:42 Initial Consult Date 03/04/16 Type of Consultation: ID Exam/Review of Systems Vital Signs Vitals Vital Signs Date Time Temp Pulse Resp B/P Pulse Ox O2 Delivery O2 Flow Rate FiO2 03/12/16 12:31 75 20 03/12/16 11:51 98.1 132/59 98 03/12/16 08:09 Nasal Cannula 3.0 03/09/16 10:04 50 Intake and Output 03/11/16 03/11/16 03/12/16 15:00 23:00 07:00 Intake Total 500 ml 103 ml Output Total 3500 ml Balance -3000 ml 103 ml Results Result Diagram: 03/11/16 0610 03/11/16 0610 Medications Medications Current Medications Ondansetron HCl (Zofran Inj) 4 mg Q6H PRN IV NAUSEA AND/OR VOMITING; Start 03/04 at 11:30 Nitroglycerin (Nitroglycerin (Sl Tab) 0.4 Mg) 1 tab Q5M PRN SL CHEST PAIN; Start 03/04/16 at 11:30 Acetaminophen (Tylenol Supp) 650 mg Q4H PRN [place] PAIN LEVEL 1-3 OR FEVER; Start 03/04/16 at 11:30 Morphine Sulfate (morphine) 2 mg Q4H PRN IV PAIN LEVEL 7-10; Start 03/04/16 at 11:30 Lorazepam (Ativan) 1 mg Q2H PRN IV ANXIETY; Start 03/04/16 at 11:30 Mometasone Furoate (Asmanex) 1 puff BID INH Last administered on 03/12/16 08: 42; Admin Dose 1 PUFF; Start 03/04/16 at 21:00 Aspirin (Halfprin) 81 mg DAILY PO Last administered on 03/12/16 08:51; Admin Dose 81 MG; Start 03/05/16 at 09:00 Furosemide (Lasix) 20 mg DAILY@06 PO Last administered on 03/12/16 06:30; Admin Dose 20 MG; Start 03/05/16 at 06:00 Montelukast Sodium (Singulair) 10 mg QHS PO Last administered on 03/11/16 21: 13; Admin Dose 10 MG; Start 03/04/16 at 21:00 Atorvastatin Calcium (Lipitor) 80 mg DAILY@21 PO Last administered on 21:13; Admin Dose 80 MG; Start 03/04/16 at 21:00 Carvedilol (Coreg) 6.25 mg BID PO Last administered on 03/12/16 08:50; Admin Dose 6.25 MG; Start 03/04/16 at 21:00 Hydralazine HCl (Apresoline) 25 mg TID PO Last administered on 03/12/16 13:19 ; Admin Dose 25 MG; Start 03/04/16 at 21:00 Isosorbide Dinitrate (Isordil) 5 mg TID PO Last administered on 03/12/16 13:19 ; Admin Dose 5 MG; Start 03/04/16 at 21:00 Lisinopril (Zestril) 2.5 mg DAILY PO Last administered on 03/10/16 08:30; Admin Dose 2.5 MG; Start 03/05/16 at 09:00 Clopidogrel Bisulfate (plaVIX) 75 mg DAILY PO Last administered on 03/12/16 08 :51; Admin Dose 75 MG; Start 03/05/16 at 09:00 Acetaminophen (Tylenol Tab) 650 mg Q4H PRN PO PAIN AND OR ELEVATED TEMP Last administered on 03/12/16 13:18; Admin Dose 650 MG; Start 03/05/16 at 11:30 Loperamide HCl (Imodium Cap) 2 mg QID PRN PO loose stool Last administered on 13:19; Admin Dose 2 MG; Start 03/06/16 at 06:00 Pantoprazole (Protonix Tab) 40 mg DAILY@06 PO Last administered on 03/12/16 06 :29; Admin Dose 40 MG; Start 03/08/16 at 06:00 Heparin Sodium (Porcine) (Heparin (5000 Units/0.5 ml)) 5,000 unit BID SC Last administered on 03/12/16 08:48; Admin Dose 5,000 UNIT; Start 03/08/16 at 21:00 Gentamicin Sulfate (Gentamicin Iv Per Pharmacy) GENTAMICIN PER PHARMACY NOTE XX ; Start 03/08/16 at 15:30 Fluconazole (Diflucan) 100 mg DAILY PO Last administered on 03/12/16 08:51; Admin Dose 100 MG; Start 03/09/16 at 09:00 Methylprednisolone Sodium Succinate (Solu-Medrol) 60 mg Q8 IV Last administered on 03/12/16 13:18; Admin Dose 60 MG; Start 03/09/16 at 14:00 Mupirocin (Bactroban) 1 applic BID TOP Last administered on 03/12/16 08:42; Admin Dose 1 APPLIC; Start 03/10/16 at 21:00 SUNSHINE RAVI NP Mar 12, 2016 13:34
--- NOTE | 2016-03-12 15:34 | PN ---
DATE: 03/12/2016 SUBJECTIVE: The patient is stable, no acute events overnight. No fevers, chills, nausea, vomiting. No shortness of breath. OBJECTIVE: VITAL SIGNS: Blood pressure is 141/56, respiration 18, pulse 71, temperature 98.3. HEENT: Head is normocephalic. NECK: Supple. HEART: Regular rate. LUNGS: Show diminished breath sounds at base. ABDOMEN: Soft, nontender to palpation without rebound or guarding. EXTREMITIES: Negative for clubbing, cyanosis. No edema. DERMATOLOGIC: No rashes. MUSCULOSKELETAL: No joint effusions. NEUROLOGIC: No change in exam. MEDICATIONS: Reviewed. LABORATORY DATA: Showed sodium 128, potassium 4.4, chloride 92, BUN 61, creatinine 3.28. CBC was r eviewed. ASSESSMENT AND PLAN: 1. End-stage renal disease. The patient will be scheduled for hemodialysis tomorrow, was dialyzed yesterday, tolerated well. 2. Volume overload. Continue ultrafiltration dialysis. 3. Anemia. Continue to monitor hemoglobin and hematocrit levels. Continue Epogen. 4. Mineral bone disorder. Continue to monitor calcium and phosphorus levels. Continue phosphate b inders. 5. Acute respiratory failure secondary to pneumonia, chronic obstructive pulmonary disease. Contin ue current medical management. 6. Hyponatremia secondary to end-stage renal disease. Continue to limit free water intake. Contin ue dialysis on a 140 sodium bath. 7. Non-ST segment elevation myocardial infarction, continue medical management. 8. Hypertension. Continue current blood pressure regimen. Dictated By: TOM CUNNINGHAM/DUTCH Conf#: [id number] DID#: [id number]
[2016-03-12] MEDS ORDERED: [UNRECOGNIZED DRUG - REMARK] XX SCH (16:00)
[2016-03-12] MEDS: GENTAMICIN 60 MG in SOD CHLORIDE 0.9% 50 ML IVPB SCH (16:26)
--- NOTE | 2016-03-12 18:00 | PN ---
DATE: 03/12/2016 SUBJECTIVE: The patient remains relatively stable. No new events, status post hemodialysis this mo rning with 3 liters of fluid removed. PHYSICAL EXAMINATION: VITAL SIGNS: Temperature 98, pulse is 75, blood pressure 132/59, O2 saturation 96% on 3 L nasal can nula. NECK: Supple. No JVD or lymphadenopathy. CARDIAC: S1, S2. No added sounds or murmurs. CHEST: Diminished air entry bilaterally. No rales or wheezes. ABDOMEN: Soft, nontender. No guarding or rebound. EXTREMITIES: No cyanosis, clubbing, edema. NEUROLOGIC: Grossly intact. No focal deficits. LABORATORY DATA: CBC and Chem-7 are pending at time of this dictation. IMPRESSION: 1. Improving hypoxemic respiratory failure. 2. Pulmonary edema with volume overload. 3. Possible underlying coronary artery disease. PLAN: 1. Continue hemodialysis with volume removal. 2. Continue supplemental O2. 3. Continue cardiac recommendations with cardiac catheterization scheduled. Dictated By: RAFIA WRIGHT MD SV/DUTCH Conf#: [id number] DID#: [id number] CC: BERENICE MELENDEZ MD;*EndCC*
[2016-03-12] MEDS: MONTELUKAST 10 MG TAB PO SCH (20:57)
[2016-03-12] MEDS: ATORVASTATIN 80 MG TAB PO SCH (20:58)
[2016-03-13] VITALS (13 sets, daily range): BP systolic 141–193; BP diastolic 69–78; PULSE 54–63; RESP 18–20
[2016-03-13] MEDS: LEVALBUTEROL (NEB) 1.25 MG/0.5 ML AMP HHN SCH ×3 (01:30→13:38)
[2016-03-13] MEDS: IPRATROPIUM (NEB) 0.5 MG/2.5 ML AMP NEB SCH ×3 (01:31→13:38)
[2016-03-13] MEDS: PANTOPRAZOLE (EC) 40 MG TAB PO SCH (05:50)
[2016-03-13] MEDS: METHYLPREDNISOLONE 125 MG INJ IV SCH ×2 (05:50→13:27)
[2016-03-13] MEDS: FUROSEMIDE 20 MG TAB PO SCH (05:50)
[2016-03-13 06:02] LABS: HEMATOCRIT 29.3 % (37.0-47.0); HEMOGLOBIN 9.7 g/dl (12.0-16.0); MEAN CORPUSCULAR HEMOGLOBIN 33.9 pg (29.0-33.0); MEAN CORPUSCULAR HGB CONC 33.1 g/dl (32.0-37.0); MEAN CORPUSCULAR VOLUME 102.6 fl (82.0-101.0); MEAN PLATELET VOLUME 8.5 fl (7.4-10.4); PLATELET COUNT 251 10^3/UL (140-440); RED BLOOD COUNT 2.86 10^6/ul (4.20-5.40); UNCORRECTED WBC 8.8 10^3/ul (4.8-10.8); WHITE BLOOD COUNT 8.8 10^3/ul (4.8-10.8)
[2016-03-13 06:11] LABS: SUSPECT 1
[2016-03-13 06:12] LABS: CONDITION 1; LH ANALYZER COMMENTS 1
[2016-03-13 06:13] LABS: POTASSIUM 4.6 mmol/L (3.5-5.1)
[2016-03-13 06:15] LABS: CREATININE 2.72 mg/dl (0.44-1.00)
[2016-03-13 06:16] LABS: CALCIUM 8.5 mg/dl (8.4-10.2); MAGNESIUM 1.9 mg/dl (1.7-2.5); PHOSPHORUS 5.5 mg/dl (2.5-4.9)
--- NOTE | 2016-03-13 09:07 | CONS ---
Date/Time of Note Date/Time of Note DATE: 03/13/16 TIME: 09:07 Consult Date/Type/Reason Admit Date/Time Mar 04, 2016 at 14:42 Initial Consult Date 03/04/16 Type of Consultation: card Objective Vital Signs Date Time Temp Pulse Resp B/P Pulse Ox O2 Delivery O2 Flow Rate FiO2 03/13/16 08:34 60 16 98 Nasal Cannula 3.0 03/13/16 08:03 98.1 145/72 03/09/16 10:04 50 Intake and Output 03/12/16 03/12/16 03/13/16 15:00 23:00 07:00 Intake Total 200 ml 1083 ml 400 ml Output Total 7800 ml Balance -7600 ml 1083 ml 400 ml Results/Medications Result Diagram: 03/13/16 0511 03/13/16 0511 Results 24 hrs Laboratory Tests Test 03/13/16 05:11 Anion Gap 15 Basophils # Pending Basophils % Pending Blood Morphology Comment Blood Urea Nitrogen 45 #H Calcium Level 8.5 Carbon Dioxide Level 28 Chloride Level 97 Creatinine 2.72 H Eosinophils # Pending Eosinophils % Pending Glucose Level 111 Hematocrit 29.3 L Hemoglobin 9.7 L Lymphocytes # Pending Lymphocytes % Pending Magnesium Level 1.9 Mean Corpuscular Hemoglobin 33.9 H Mean Corpuscular Hemoglobin Concent 33.1 Mean Corpuscular Volume 102.6 H Mean Platelet Volume 8.5 Monocytes # Pending Monocytes % Pending Neutrophils # Pending Neutrophils % Pending Nucleated Red Blood Cells # Pending Nucleated Red Blood Cells % Pending Phosphorus Level 5.5 H Platelet Count 251 # Potassium Level 4.6 Random Vancomycin Level 11.1 Red Blood Count 2.86 L Red Cell Distribution Width 15.0 H Sodium Level 135 White Blood Count 8.8 Medications Current Medications Ondansetron HCl (Zofran Inj) 4 mg Q6H PRN IV NAUSEA AND/OR VOMITING; Start 03/04 at 11:30 Nitroglycerin (Nitroglycerin (Sl Tab) 0.4 Mg) 1 tab Q5M PRN SL CHEST PAIN; Start 03/04/16 at 11:30 Acetaminophen (Tylenol Supp) 650 mg Q4H PRN IL PAIN LEVEL 1-3 OR FEVER; Start 03/04/16 at 11:30 Morphine Sulfate (morphine) 2 mg Q4H PRN IV PAIN LEVEL 7-10; Start 03/04/16 at 11:30 Lorazepam (Ativan) 1 mg Q2H PRN IV ANXIETY; Start 03/04/16 at 11:30 Mometasone Furoate (Asmanex) 1 puff BID INH Last administered on 03/12/16 20: 56; Admin Dose 1 PUFF; Start 03/04/16 at 21:00 Aspirin (Halfprin) 81 mg DAILY PO Last administered on 03/12/16 08:51; Admin Dose 81 MG; Start 03/05/16 at 09:00 Furosemide (Lasix) 20 mg DAILY@06 PO Last administered on 03/13/16 05:50; Admin Dose 20 MG; Start 03/05/16 at 06:00 Montelukast Sodium (Singulair) 10 mg QHS PO Last administered on 03/12/16 20: 57; Admin Dose 10 MG; Start 03/04/16 at 21:00 Atorvastatin Calcium (Lipitor) 80 mg DAILY@21 PO Last administered on 20:58; Admin Dose 80 MG; Start 03/04/16 at 21:00 Carvedilol (Coreg) 6.25 mg BID PO Last administered on 03/12/16 20:57; Admin Dose 6.25 MG; Start 03/04/16 at 21:00 Hydralazine HCl (Apresoline) 25 mg TID PO Last administered on 03/12/16 20:57 ; Admin Dose 25 MG; Start 03/04/16 at 21:00 Isosorbide Dinitrate (Isordil) 5 mg TID PO Last administered on 03/12/16 20:57 ; Admin Dose 5 MG; Start 03/04/16 at 21:00 Lisinopril (Zestril) 2.5 mg DAILY PO Last administered on 03/10/16 08:30; Admin Dose 2.5 MG; Start 03/05/16 at 09:00 Clopidogrel Bisulfate (plaVIX) 75 mg DAILY PO Last administered on 03/12/16 08 :51; Admin Dose 75 MG; Start 03/05/16 at 09:00 Acetaminophen (Tylenol Tab) 650 mg Q4H PRN PO PAIN AND OR ELEVATED TEMP Last administered on 03/12/16 13:18; Admin Dose 650 MG; Start 03/05/16 at 11:30 Loperamide HCl (Imodium Cap) 2 mg QID PRN PO loose stool Last administered on 20:58; Admin Dose 2 MG; Start 03/06/16 at 06:00 Pantoprazole (Protonix Tab) 40 mg DAILY@06 PO Last administered on 03/13/16 05 :50; Admin Dose 40 MG; Start 03/08/16 at 06:00 Heparin Sodium (Porcine) (Heparin (5000 Units/0.5 ml)) 5,000 unit BID SC Last administered on 03/12/16 21:08; Admin Dose 5,000 UNIT; Start 03/08/16 at 21:00 Gentamicin Sulfate (Gentamicin Iv Per Pharmacy) GENTAMICIN PER PHARMACY NOTE XX ; Start 03/08/16 at 15:30 Fluconazole (Diflucan) 100 mg DAILY PO Last administered on 03/12/16 08:51; Admin Dose 100 MG; Start 03/09/16 at 09:00 Methylprednisolone Sodium Succinate (Solu-Medrol) 60 mg Q8 IV Last administered on 03/13/16 05:50; Admin Dose 60 MG; Start 03/09/16 at 14:00 Mupirocin (Bactroban) 1 applic BID TOP Last administered on 03/12/16 20:58; Admin Dose 1 APPLIC; Start 03/10/16 at 21:00 Assessment/Plan Chief Complaint/Hosp Course Patient is 75-year-old female with past medical history of coronary artery disease status post bypass surgery, severe peripheral vascular disease status post aortofemoral bypass, ESRD on hemodialysis, hypertension, dyslipidemia who presented to ER with a complaining of shortness of breath and pulmonary edema found to have elevated troponin with EKG changes was initially meetings Scarboso criteria on left bundle-branch block but patient was at that time tachycardic source STEMI was not called but H and was high risk non-ST elevation myocardial infarction with some EKG changes and troponin of 2.5 with significant coronary artery disease risk and history with the patient to urgently to cardiac Certified Orthoptist Problems: Additional Assessment/Plan ID on case plan for 14days abx total SNF d/c f/u out pt ARTURO REINOSO MD Mar 13, 2016 09:07
[2016-03-13 09:15] LABS: LYMPHOCYTES # 0.6 10^3/ul (0.8-2.9); MONOCYTE # 0.3 10^3/ul (0.3-0.9); NEUTROPHIL # 7.5 10^3/ul (1.6-7.5)
[2016-03-13] MEDS: MOMETASONE 0.24 GM INHALER INH SCH (09:41)
[2016-03-13] MEDS: ISOSORBIDE DINITRATE 10 MG TAB PO SCH ×2 (09:44→13:26)
[2016-03-13] MEDS: FLUCONAZOLE 100 MG TAB PO SCH (09:44)
[2016-03-13] MEDS: ASPIRIN (EC) 81 MG TAB PO SCH (09:44)
[2016-03-13] MEDS: CLOPIDOGREL 75 MG TAB PO SCH (09:45)
[2016-03-13] MEDS: LISINOPRIL 5 MG TAB PO SCH (09:45)
[2016-03-13] MEDS: MUPIROCIN 2% 22 GM OINT TOP SCH (09:46)
[2016-03-13] MEDS: LOPERAMIDE 2 MG CAP PO PRN ×2 (09:46→15:50)
[2016-03-13] MEDS: HEPARIN 5,000 UNIT/0.5 ML SYG SC SCH (09:56)
[2016-03-13] MEDS ORDERED: VANCOMYCIN 1 GM in NS 250 ML IVPB SCH (10:00)
--- NOTE | 2016-03-13 13:04 | PN ---
DATE: SUBJECTIVE: The patient is stable, no acute events overnight. No fever, chills, nausea, vomiting. The patient had hemodialysis yesterday, tolerated it well. OBJECTIVE: VITAL SIGNS: Blood pressure 145/72, respirations 18, pulse 65, temperature 98.1. I'S AND O'S: The patient had 3.8 L removed with dialysis. HEENT: Head is normocephalic. NECK: Supple. HEART: Regular rate. LUNGS: Show diminished breath sounds at the base. ABDOMEN: Soft, nontender to palpation. No rebound or guarding. EXTREMITIES: Negative for clubbing, cyanosis. No edema. DERMATOLOGIC: No rashes. MUSCULOSKELETAL: No joint effusions. NEUROLOGIC: No change in exam. MEDICATIONS: The patient's medications have been reviewed. LABORATORY DATA: Shows sodium 135, potassium 4.6, chloride 96, BUN 45, creatinine 2.72. White coun t 8.8, hemoglobin 9.7, hematocrit 29.3, platelet count is 251. ASSESSMENT AND PLAN: 1. End-stage renal disease. The patient has been receiving near daily dialysis for volume removal. Will anticipate dialysis again tomorrow for 3 hours, 3K bath, calcium 2.5, ultrafiltrate as tolera yaa. 2. Volume overload. Continue ultrafiltration dialysis. 3. Anemia. Continue to monitor hemoglobin and hematocrit levels. Continue Epogen. 4. Mineral bone disorder. Continue to monitor calcium and phosphorus levels. Continue phosphate b inders. 5. Acute respiratory failure secondary to pneumonia and congestive heart failure. Continue current medical management. Continue volume removal with dialysis. 6. Hyponatremia, improved. 7. [id number] myocardial infarction. Continue medical management. 8. Hypertension. Continue current blood pressure regimen. Dictated By: TOM CUNNINGHAM/DUTCH Conf#: [id number] DID#: [id number]
--- NOTE | 2016-03-13 15:27 | CONS ---
Date/Time of Note Date/Time of Note DATE: 03/13/16 TIME: 15:25 Assessment/Plan Assessment/Plan Chief Complaint/Hosp Course ID PROGRESS NOTE TOTAL ABX DAY # => Vanco IV #9, Gent #6, Diflucan 24H INTERVAL SUMMARY * Much improved => DC PENDING TODAY FOR [facility] Step-down care w/OP HD * s/p HD yesterday- resting comfortably, no new issues * No fevers,. WBC normal range PHYSICAL EXAMINATION: GENERAL: 75 yo F, VSS, NAD, A/A/O HEENT: Unremarkable NECK: Supple, trachea midline. CHEST: Rise symmetrical without dyspnea HEART: RRR ABDOMEN: Soft EXTREMITIES: Warm ID ASSESSMENT: 75 yo F admit with: 1. Systemic inflammatory response syndrome with leukocytosis secondary to #2. 2. Polymicrobial urinary tract infection w/(+)MRSA,(+)Enterococcus,(+)C> Albicans * 03/09/16 repeat Urine: Repeat Urine w/low colony counts yeast + mixed pathogens ?contaminants vs asymptomatic bacteriuria 3. End-stage renal disease, hemodialysis dependent. 4. Pulmonary edema with fluid overload. 5. History of coronary artery disease, non-ST elevation myocardial infarction, and status post percutaneous transluminal coronary angioplasty with stent placement. 6. History of coronary artery bypass graft. (+)MRSA Nares Colonization (+)VRE Stool Colonization INVASIVES: *R-chest PermCath. CURRENT ABX: # => Vanco IV #9, Gent 6, Diflucan s/p ID RECOMMENDATIONS: CONTINUE Current ABX => anticipate 14 days total Vanco IV for MRSA/Enterococcal complicated UTI Initiated on Bactroban->Nares and Hibiclens bath DC to SNF on ABX until 03/18/16 . . Problems: Consultation Date/Type/Reason Admit Date/Time Mar 04, 2016 at 14:42 Initial Consult Date 03/04/16 Type of Consultation: id Exam/Review of Systems Vital Signs Vitals Vital Signs Date Time Temp Pulse Resp B/P Pulse Ox O2 Delivery O2 Flow Rate FiO2 03/13/16 13:46 156/69 03/13/16 13:41 64 16 97 Nasal Cannula 3.0 03/13/16 11:46 98.5 03/09/16 10:04 50 Intake and Output 03/12/16 03/12/16 03/13/16 15:00 23:00 07:00 Intake Total 200 ml 1083 ml 400 ml Output Total 7800 ml Balance -7600 ml 1083 ml 400 ml Results Result Diagram: 03/13/16 0511 03/13/16 0511 Results 24 hrs Laboratory Tests Test 03/13/16 05:11 Anion Gap 15 Band Neutrophils % 4.0 Basophils # Basophils % Blood Morphology Comment Blood Urea Nitrogen 45 #H Calcium Level 8.5 Carbon Dioxide Level 28 Chloride Level 97 Creatinine 2.72 H Differential Comment MANUAL DIFF Eosinophils # Eosinophils % Glucose Level 111 Hematocrit 29.3 L Hemoglobin 9.7 L Lymphocytes # 0.6 L Lymphocytes % 7.0 L Magnesium Level 1.9 Mean Corpuscular Hemoglobin 33.9 H Mean Corpuscular Hemoglobin Concent 33.1 Mean Corpuscular Volume 102.6 H Mean Platelet Volume 8.5 Monocytes # 0.3 Monocytes % 3.0 Neutrophils # 7.5 Neutrophils % 85.0 H Nucleated Red Blood Cells # Nucleated Red Blood Cells % Phosphorus Level 5.5 H Platelet Count 251 # Potassium Level 4.6 Promyelocytes # 0.1 Promyelocytes % 1.0 H Random Vancomycin Level 11.1 Red Blood Count 2.86 L Red Cell Distribution Width 15.0 H Sodium Level 135 White Blood Count 8.8 Medications Medications Current Medications Ondansetron HCl (Zofran Inj) 4 mg Q6H PRN IV NAUSEA AND/OR VOMITING; Start 03/04 at 11:30 Nitroglycerin (Nitroglycerin (Sl Tab) 0.4 Mg) 1 tab Q5M PRN SL CHEST PAIN; Start 03/04/16 at 11:30 Acetaminophen (Tylenol Supp) 650 mg Q4H PRN ND PAIN LEVEL 1-3 OR FEVER; Start 03/04/16 at 11:30 Morphine Sulfate (morphine) 2 mg Q4H PRN IV PAIN LEVEL 7-10; Start 03/04/16 at 11:30 Lorazepam (Ativan) 1 mg Q2H PRN IV ANXIETY; Start 03/04/16 at 11:30 Mometasone Furoate (Asmanex) 1 puff BID INH Last administered on 03/13/16 09: 41; Admin Dose 1 PUFF; Start 03/04/16 at 21:00 Aspirin (Halfprin) 81 mg DAILY PO Last administered on 03/13/16 09:44; Admin Dose 81 MG; Start 03/05/16 at 09:00 Furosemide (Lasix) 20 mg DAILY@06 PO Last administered on 03/13/16 05:50; Admin Dose 20 MG; Start 03/05/16 at 06:00 Montelukast Sodium (Singulair) 10 mg QHS PO Last administered on 03/12/16 20: 57; Admin Dose 10 MG; Start 03/04/16 at 21:00 Atorvastatin Calcium (Lipitor) 80 mg DAILY@21 PO Last administered on 20:58; Admin Dose 80 MG; Start 03/04/16 at 21:00 Carvedilol (Coreg) 6.25 mg BID PO Last administered on 03/13/16 09:44; Admin Dose 6.25 MG; Start 03/04/16 at 21:00 Hydralazine HCl (Apresoline) 25 mg TID PO Last administered on 03/13/16 13:26 ; Admin Dose 25 MG; Start 03/04/16 at 21:00 Isosorbide Dinitrate (Isordil) 5 mg TID PO Last administered on 03/13/16 13:26 ; Admin Dose 5 MG; Start 03/04/16 at 21:00 Lisinopril (Zestril) 2.5 mg DAILY PO Last administered on 03/13/16 09:45; Admin Dose 2.5 MG; Start 03/05/16 at 09:00 Clopidogrel Bisulfate (plaVIX) 75 mg DAILY PO Last administered on 03/13/16 09 :45; Admin Dose 75 MG; Start 03/05/16 at 09:00 Acetaminophen (Tylenol Tab) 650 mg Q4H PRN PO PAIN AND OR ELEVATED TEMP Last administered on 03/12/16 13:18; Admin Dose 650 MG; Start 03/05/16 at 11:30 Loperamide HCl (Imodium Cap) 2 mg QID PRN PO loose stool Last administered on 09:46; Admin Dose 2 MG; Start 03/06/16 at 06:00 Pantoprazole (Protonix Tab) 40 mg DAILY@06 PO Last administered on 03/13/16 05 :50; Admin Dose 40 MG; Start 03/08/16 at 06:00 Heparin Sodium (Porcine) (Heparin (5000 Units/0.5 ml)) 5,000 unit BID SC Last administered on 03/13/16 09:56; Admin Dose 5,000 UNIT; Start 03/08/16 at 21:00 Gentamicin Sulfate (Gentamicin Iv Per Pharmacy) GENTAMICIN PER PHARMACY NOTE XX ; Start 03/08/16 at 15:30 Fluconazole (Diflucan) 100 mg DAILY PO Last administered on 03/13/16 09:44; Admin Dose 100 MG; Start 03/09/16 at 09:00 Methylprednisolone Sodium Succinate (Solu-Medrol) 60 mg Q8 IV Last administered on 03/13/16 13:27; Admin Dose 60 MG; Start 03/09/16 at 14:00 Mupirocin 1 applic 1 applic BID TOP Last administered on 03/13/16 09:46; Admin Dose 1 APPLIC; Start 03/10/16 at 21:00 Vancomycin HCl (Vancocin) 250 ml @ 125 mls/hr ONCE IVPB Last administered on 10:23; Admin Dose 125 MLS/HR; Start 03/13/16 at 10:00; Stop 03/13/16 at 16:00 SUNSHINE RAVI NP Mar 13, 2016 15:27
--- NOTE | 2016-03-13 18:39 | PN ---
DATE: 03/13/2016 SUBJECTIVE: The patient is stable this morning, less shortness of breath compared to yesterday. OBJECTIVE: VITAL SIGNS: Temperature 98, pulse 64, blood pressure 190/70, O2 sat 96% on 3 liters. NECK: Supple. No JVD or lymphadenopathy. CARDIAC: S1, S2. No added sounds or murmurs. CHEST: Diminished air entry bilaterally. ABDOMEN: Soft, nontender. No guarding or rebound. EXTREMITIES: No cyanosis, clubbing, edema. NEUROLOGIC: Grossly intact. No focal deficits. LABORATORY DATA: White count 8.8, hemoglobin 9.7, platelets 251. BUN 45, creatinine 2.72. IMPRESSION: 1. Congestive cardiac failure. 2. Pulmonary edema. 3. Hypoxemic respiratory failure. 4. End-stage renal failure on hemodialysis. 5. Likely underlying coronary artery disease. PLAN: 1. Continue hemodialysis. 2. Volume removal. 3. Correction of electrolyte abnormalities. 4. Encourage ambulation. 5. Consider discharge planning. Dictated By: RAFIA DOBBS/DUTCH Conf#: [id number] DID#: [id number]
--- NOTE | 2016-03-14 09:08 | DS ---
DATE OF ADMISSION: 03/04/2016 DATE OF DISCHARGE: 03/13/2016 Please see my detailed discharge summary which was done on 03/11/2016. CONSULTANTS: 1. Alex Woods MD 2. Ras Barajas M.D. 3. Herberth Hameed MD 4. Douglas Limon DO 5. George Shen MD 6. Laith Rosa MD 7. Jamel Hess MD DIAGNOSES: 1. Non-ST elevation myocardial infarction, status post percutaneous coronary intervention with sten t placement in the left main ostial lesion. Continue antiplatelet medication, beta angelica and stat in. 2. History of coronary artery disease with coronary artery bypass graft as above. 3. Healthcare-acquired pneumonia. Continue antibiotics and bronchodilator. 4. Acute respiratory failure, resolved is likely secondary to pneumonia versus fluid overload, stat us post hemodialysis on oxygen, off BiPAP. 5. Sepsis, resolved. 6. End-stage renal disease on hemodialysis. 7. Essential hypertension, well controlled on medical management. 8. Methicillin-resistant Staphylococcus aureus urinary tract infection plus Evi and Enterococcu s on vancomycin and gentamicin, fluconazole. 9. Chronic obstructive pulmonary disease, history of smoking. Continue prednisone Singulair and br eathing treatment. 10. Anemia of chronic disease. Continue Epogen. 11. Hyponatremia secondary to end-stage renal disease on hemodialysis. MEDICATIONS 1. Tylenol. 2. Aspirin. 3. Lipitor. 4. Coreg. 5. Plavix. 6. Epogen. 7. Fluconazole. 8. Lasix. 9. Gentamicin as per pharmacy. 10. Heparin. 11. Hydralazine. 12. Atrovent. 13. Spiriva. 14. Isordil. 15. Xopenex. 16. Zestril. 17. Prednisone. 18. Asmanex. 19. Singulair. 16. 17. Nitroglycerin. 18. Protonix. 19. Vancomycin per pharmacy. 20. Zofran. 21. [place]. DIET: Cardiac, renal. FOLLOWUP: Follow up with cardiology in 2 to 3 weeks and is to follow with nephrology for hemodialysis. Oxygen via nasal cannula to keep oxygen saturation greater than 94%. PT, OT evaluate and treat. Please see my discharge dictation on 03/11/2016. HOSPITAL COURSE: This is a 75-year-old female with past medical history of essential hypertension, CAD, previous CABG, COPD, dyslipidemia, healthcare-associated pneumonia, congestive heart failure, m ixed, diastolic and systolic congestive heart failure and end-stage renal disease who presented to [facility] 03/04/2016 secondary to having shortness of breath which has been going on x2 weeks. The patient was recently hospitalized at [facility] to receive IV antibioti cs and was discharged and on 02/27/2016 and 03/04/2016 patient presented to [facility]. She was found to have pulmonary edema. Suspect superimposed pneumonia with mid to lower jessica g zone. The patient had a temperature of 102.7, was placed on BiPAP and was admitted to the ICU, es sentially she was weaned off from BiPAP. Her troponin was found to be elevated. Cardiology was con sulted. Patient will undergo PCI and stent placement of the complex left main artery. She tolerate d the procedure well and was placed on aspirin, Plavix, beta angelica. She was also seen and evaluat ed by the infectious disease physician secondary to having methicillin-resistant Staphylococcus angélica us, vancomycin-resistant Enterococcus on stool culture. Enterococcus species, methicillin-resistant Staphylococcus aureus on urine culture, blood culture was found to be negative. Stool culture appa rently was coliform. The patient was placed on proper antibiotics as per infectious disease doctor. On Sunday03/11/2016 patient was cleared as medical standpoint, infectious disease, pulmonologis t and telephone advice nurse to be discharged to halfway facility. Order was placed, although seconda ry to bed not being available at the facility the patient's discharge was delayed. Today the patien t will be reevaluated by the halfway facility and the patient will be discharged to [facility] for further evaluation and treatment. Labs today WBC 8.8, hemoglobin 9.7, hematocrit 29.3, MCV 102.6, platelets 251. Sodium 135, potassiu m 4.6, chloride 97, bicarbonate 28, BUN 45, creatinine 2.72, glucose 111, calcium 8.5. Phosphorus 5. 5, magnesium 1.9. VITALS: Temperature 98.5, pulse 70, respiration 20, blood pressure 106/70, oxygen 91% to 96% on 2 l iters. CONDITION AT TIME OF DISCHARGE: Stable. Dictated By: XIANG YING/DUTCH Conf#: [id number] [facility]#: [id number]
== END 2016-03-13 16:00 | DRG 853 ==
LOC: E/R 08:51 → ICU 14:42 → TEL 03-05 20:06
PROVIDERS: ADMIT Internal Medicine; ATTEND Internal Medicine
PROC: 027034Z Dilation of Coronary Artery, One Artery with Drug-eluting Intraluminal Device, Percutaneous Approach (ICD-10-PCS; principal; 2016-03-04)
PROC: B245ZZ3 Ultrasonography of Left Heart, Intravascular (ICD-10-PCS; 2016-03-04)
PROC: 4A023N7 Measurement of Cardiac Sampling and Pressure, Left Heart, Percutaneous Approach (ICD-10-PCS; 2016-03-04)
PROC: B2121ZZ Fluoroscopy of Single Coronary Artery Bypass Graft using Low Osmolar Contrast (ICD-10-PCS; 2016-03-04)
PROC: B2181ZZ Fluoroscopy of Left Internal Mammary Bypass Graft using Low Osmolar Contrast (ICD-10-PCS; 2016-03-04)
PROC: B2111ZZ Fluoroscopy of Multiple Coronary Arteries using Low Osmolar Contrast (ICD-10-PCS; 2016-03-04)
PROC: B3101ZZ Fluoroscopy of Thoracic Aorta using Low Osmolar Contrast (ICD-10-PCS; 2016-03-04)
PROC: 5A09557 Assistance with Respiratory Ventilation, Greater than 96 Consecutive Hours, Continuous Positive Airway Pressure (ICD-10-PCS; 2016-03-04)
PROC: 5A1D60Z (ICD-10-PCS; 2016-03-04)
DX: A41.9 Sepsis, unspecified organism (principal); I21.4 Non-ST elevation (NSTEMI) myocardial infarction; J96.22 Acute and chronic respiratory failure with hypercapnia; J18.9 Pneumonia, unspecified organism; J81.1 Chronic pulmonary edema; I12.0 Hypertensive chronic kidney disease with stage 5 chronic kidney disease or end stage renal disease; N18.6 End stage renal disease; E11.22 Type 2 diabetes mellitus with diabetic chronic kidney disease; N39.0 Urinary tract infection, site not specified; I25.810 Atherosclerosis of coronary artery bypass graft(s) without angina pectoris; I16.1 Hypertensive emergency; J44.1 Chronic obstructive pulmonary disease with (acute) exacerbation; E87.1 Hypo-osmolality and hyponatremia; B37.49 Other urogenital candidiasis; E87.5 Hyperkalemia; D63.8 Anemia in other chronic diseases classified elsewhere; Y95 Nosocomial condition; Z95.1 Presence of aortocoronary bypass graft; Z99.2 Dependence on renal dialysis; Z95.5 Presence of coronary angioplasty implant and graft; Z87.891 Personal history of nicotine dependence; R09.02 Hypoxemia; I25.10 Atherosclerotic heart disease of native coronary artery without angina pectoris; I44.7 Left bundle-branch block, unspecified; B95.62 Methicillin resistant Staphylococcus aureus infection as the cause of diseases classified elsewhere; Z16.21 Resistance to vancomycin
CPT/HCPCS: 36600; 71010; 75605; 80048; 80053; 80061; 80202; 81001; 81003; 82550; 82553; 82803; 83036; 83605; 83735; 84100; 84484; 85025; 85610; 85730; 87040; 87045; 87075; 87081; 87086; 90935; 92978; 93005; 93306; 93459; 94640; 94660; 94664; C1725; C1753; C1769; C1874; C1887; C1894; C9113; C9600; J0610; J0886; J1200; J1580; J1644; J1720; J1956; J2250; J2270; J2405; J2930; J3010; J3370; Q9967